=== PATIENT | female | born 1960 | race Caucasian/White ===

== ENCOUNTER → 2017-01-21 | Outpatient (CLI) | payer MEDICARE, OTHER ==
[~2017-01-21] MED LIST: AC325T PO; ALBU8.5H2 IH; AMOX500C2 PO; BENZ100C18 PO; BENZ200C25 PO; CARV3.122 PO; ENAL2.5T PO; FLUO20CA25 PO; HYDR-34 PO; LOSA100T7 PO; PNT40TEC PO; PRD10T PO; prednisone taper
--- OUTSIDE RECORDS SUMMARY | 2017-01-21 14:03 | XMS REPORT | Continuity of Care Document ---
Author Author [facility] Organization [facility] Address Unknown Phone Unavailable Care Team Providers Care What Job Titles Mean Name Role Phone PCP Unavailable Source Comments Some departments are not documenting in the electronic medical record. If you do not see the information that you expected, contact Release of Information in the Health Information Management department at [phone] for further assistance in locating additional records.[facility] Active Allergies and Adverse Reactions Not on File Current Medications Not on file Active Problems Not on file Social History Tobacco Use Types Packs/Day Years Used Date Never Assessed Plan of Care Health Maintenance Due Date Last Done Comments Physical (Comprehensive) 1968 Exam Pertussis Vaccine 1972 Tetanus Vaccine 1978 Cervical Cancer Screening 1982 Breast Cancer Screening 2001 Colorectal Cancer 2011 Screening Influenza Vaccine 07/19/2016 Results from Last 3 Months Not on file
--- NOTE | 2017-01-21 15:03 | Diagnostic Imaging Report ---
INDICATION: Bilateral leg pain and swelling for one week. COMPARISON: None. TECHNIQUE: The bilateral lower extremity deep venous system was interrogated from the common femoral vein through the popliteal vein. These images were assessed for grayscale appearance, color and spectral Doppler blood flow, compression, and augmentation. FINDINGS: There is no evidence of intraluminal filling defect. Normal compression and augmentation is noted throughout. Soft tissues are unremarkable. IMPRESSION: 1. No sonographic evidence of deep venous thrombosis in the bilateral lower extremities. Dictated by: Dictated on workstation # [id number]
== END ==
LOC: RAD 14:00
PROVIDERS: ATTEND Physician Assistant
DX: M79.604 Pain in right leg (principal); M79.605 Pain in left leg; I25.10 Atherosclerotic heart disease of native coronary artery without angina pectoris; I50.22 Chronic systolic (congestive) heart failure; I11.0 Hypertensive heart disease with heart failure; E78.2 Mixed hyperlipidemia
CPT/HCPCS: 93970

== ENCOUNTER → 2017-03-11 | Outpatient (CLI) | payer MEDICARE ==
[~2017-03-11] MED LIST changes: +RT-ALBUTEROL SULF 2.5 MG/3 ML PRE-MIX VIAL IH ONE
--- NOTE | 2017-03-11 14:50 | Diagnostic Imaging Report ---
PA and lateral views of the chest Indication: Chronic cough and shortness of breath Findings: The lungs are clear. The heart size is normal. There is no effusion or pneumothorax The mediastinum and chico appear unremarkable. Impression: Unremarkable study. Dictated by: Dictated on workstation # [id number]
== END ==
LOC: RT 13:08
PROVIDERS: ATTEND Internal Medicine Critical Care Medicine
DX: J44.9 Chronic obstructive pulmonary disease, unspecified (principal); R06.00 Dyspnea, unspecified; Z72.0 Tobacco use
CPT/HCPCS: 71020; 94060; 94640; 94726; 94729

== ENCOUNTER 2017-04-23 21:00 | Outpatient (CLI) | payer MEDICARE ==
[~2017-04-23 21:00] MED LIST changes: -RT-ALBUTEROL SULF 2.5 MG/3 ML PRE-MIX VIAL IH ONE
== END 2017-04-24 06:20 | disposition home or self-care (01) ==
LOC: SLEEP 21:00
PROVIDERS: ATTEND Internal Medicine Critical Care Medicine
DX: G47.9 Sleep disorder, unspecified (principal); J44.9 Chronic obstructive pulmonary disease, unspecified; R00.0 Tachycardia, unspecified; Z72.0 Tobacco use; F41.9 Anxiety disorder, unspecified
CPT/HCPCS: 95810

== ENCOUNTER → 2017-04-24 | Outpatient (CLI) | payer MEDICARE ==
[2017-04-24 07:26] LABS: ALANINE AMINOTRANSFERASE 27 U/L (0-55); ALBUMIN 3.7 G/DL (3.2-4.5); ANION GAP 10 MMOL/L (5-14); ASPARTATE AMINO TRANSFERASE 22 U/L (5-34); BILIRUBIN,DIRECT 0.2 MG/DL (0.0-0.3); BILIRUBIN,INDIRECT 0.1 MG/DL; BILIRUBIN,TOTAL 0.3 MG/DL (0.1-1.0); BLOOD UREA NITROGEN 20 MG/DL (7-18); BUN/CREATININE RATIO 29; CALCIUM 9.1 MG/DL (8.5-10.1); CARBON DIOXIDE 23 MMOL/L (21-32); CHLORIDE 110 MMOL/L (98-107); CREATININE SERUM 0.68 MG/DL (0.60-1.30); GFR ESTIMATED > 60; GLUCOSE 113 MG/DL (70-105); POTASSIUM 4.1 MMOL/L (3.6-5.0); SODIUM 143 MMOL/L (135-145); TOTAL PROTEIN 6.6 G/DL (6.4-8.2)
[2017-04-24 13:36] LABS: CHOLESTEROL 170 MG/DL (< 200); DIRECT LDL 98 MG/DL (1-129); TRIGLYCERIDES 79 MG/DL (<150); VLDL CHOLESTEROL 16 MG/DL (5-40)
== END ==
LOC: LAB 06:47
PROVIDERS: ATTEND Physician Assistant
DX: E78.2 Mixed hyperlipidemia (principal); I25.10 Atherosclerotic heart disease of native coronary artery without angina pectoris; I10 Essential (primary) hypertension
CPT/HCPCS: 36415; 80053; 80061; 80076; 82248

== ENCOUNTER → 2018-01-23 | Outpatient (CLI) | payer MEDICARE, OTHER | LOC: CARD 09:38 | PROVIDERS: ATTEND Internal Medicine Cardiovascular Disease | DX: I25.10 Atherosclerotic heart disease of native coronary artery without angina pectoris (principal); R07.9 Chest pain, unspecified; R06.00 Dyspnea, unspecified; I10 Essential (primary) hypertension; E78.2 Mixed hyperlipidemia | CPT/HCPCS: 93306 ==

== ENCOUNTER → 2018-01-28 | Outpatient (CLI) | payer MEDICARE ==
--- NOTE | 2018-01-28 18:49 | Diagnostic Imaging Report ---
EXAMINATION: PA and Lateral chest at 10:24 a.m. INDICATION: Shortness of breath. FINDINGS: The heart size is within normal limits and stable when compared to 03/11/2017. The lungs are clear. There is no sign of failure, pneumonia, or pleural effusion. The mediastinum is not widened. The osseous structures are intact. IMPRESSION: There is no evidence for active disease. Dictated by: Dictated on workstation # [id number]
== END ==
LOC: RAD 09:57
PROVIDERS: ATTEND Nurse Practitioner Family
DX: J44.9 Chronic obstructive pulmonary disease, unspecified (principal); F17.200 Nicotine dependence, unspecified, uncomplicated
CPT/HCPCS: 71046

== ENCOUNTER → 2018-05-06 | Outpatient (CLI) | payer MEDICARE ==
[~2018-05-06] MED LIST changes: +CATHETER FLUSH 10 ML SYR IV PRN; +IOHEXOL 350 MG/ML 100 ML (OMNIPAQUE 350) VIAL IV ONE; +NS 100 ML (IVPB) BAG IV ONE
[2018-05-06 11:19] LABS: BUN/CREATININE RATIO 12; CREATININE SERUM 0.73 MG/DL (0.60-1.30); GFR ESTIMATED > 60
--- NOTE | 2018-05-06 20:01 | Diagnostic Imaging Report ---
PROCEDURE: CT chest with contrast only. TECHNIQUE: Multiple contiguous axial images were obtained through the chest after administration of intravenous contrast. INDICATION: Weight loss, upper abdominal pain, and COPD. COMPARISON: CT chest dated 03/01/2014. FINDINGS: Few mildly prominent but non-pathologically enlarged axillary lymph nodes. No pathologically enlarged mediastinal and/or hilar lymphadenopathy. Visualized portions of the thyroid gland are unremarkable. Heart size is borderline. The thoracic aorta does demonstrate slight prominent appearance about the ascending aorta, maximum dimension at 3.5 cm. No filling defect to suggest dissection. No pericardial effusion. Mild calcification of the arch as well as take-off of the great vessels without findings to suggest significant stenosis. EG junction demonstrates some soft tissue prominence in and around the junction. There are moderately advanced predominantly centrilobular emphysematous changes predominantly involving the upper lobe distributions. No infiltrate. No significant pleural effusion. There may be slightly more focal fatty infiltration along the falciform ligament of the liver. Mildly advanced degenerative changes about the thoracic spine with slightly accentuated thoracic kyphotic curvature. IMPRESSION: 1. Negative for acute abnormality of the chest. 2. Moderately advanced emphysematous changes about the lung parenchyma. No infiltrate. Dictated by: Dictated on workstation # [id number]
== END ==
LOC: RAD 10:37
PROVIDERS: ATTEND Nurse Practitioner Family
DX: J44.9 Chronic obstructive pulmonary disease, unspecified (principal); R10.9 Unspecified abdominal pain; F17.200 Nicotine dependence, unspecified, uncomplicated
CPT/HCPCS: 36415; 71260; 82565; 84520

== ENCOUNTER → 2019-02-12 | Outpatient (CLI) | payer MEDICARE ==
[~2019-02-12] MED LIST changes: -CATHETER FLUSH 10 ML SYR IV PRN; -IOHEXOL 350 MG/ML 100 ML (OMNIPAQUE 350) VIAL IV ONE; -NS 100 ML (IVPB) BAG IV ONE
--- NOTE | 2019-02-12 17:08 | Diagnostic Imaging Report ---
INDICATION: Chest congestion. TIME OF EXAM: 03:27 p.m. Correlation is made with prior study from 01/28/2018. FINDINGS: The heart size is stable. Lungs show some hyperinflation. No infiltrates are seen. There is no effusion or pneumothorax. Pulmonary vascularity is within normal limits. IMPRESSION: No acute cardiopulmonary process is detected. Dictated by: Dictated on workstation # [id number]
== END ==
LOC: RAD 15:12
PROVIDERS: ATTEND Nurse Practitioner Family
DX: J44.1 Chronic obstructive pulmonary disease with (acute) exacerbation (principal); J30.2 Other seasonal allergic rhinitis; G47.34 Idiopathic sleep related nonobstructive alveolar hypoventilation; F17.200 Nicotine dependence, unspecified, uncomplicated
CPT/HCPCS: 71046

== ENCOUNTER → 2019-03-02 | Outpatient (CLI) | payer MEDICARE ==
[2019-03-02 10:18] LABS: ALANINE AMINOTRANSFERASE 18 U/L (0-55); ALBUMIN 3.9 GM/DL (3.2-4.5); ALKALINE PHOSPHATASE 61 U/L (40-136); BILIRUBIN,TOTAL 0.4 MG/DL (0.1-1.0); BUN/CREATININE RATIO 21; CALCIUM 9.3 MG/DL (8.5-10.1); CARBON DIOXIDE 27 MMOL/L (21-32); CHLORIDE 109 MMOL/L (98-107); CHOLESTEROL 183 MG/DL (< 200); CREATININE SERUM 0.77 MG/DL (0.60-1.30); GFR ESTIMATED > 60; GLUCOSE 93 MG/DL (70-105); HDL CHOLESTEROL 85 MG/DL (40-60); SODIUM 143 MMOL/L (135-145); TOTAL PROTEIN 6.4 GM/DL (6.4-8.2); TRIGLYCERIDES 56 MG/DL (<150); VLDL CHOLESTEROL 11 MG/DL (5-40)
== END ==
LOC: LAB 09:43
PROVIDERS: ATTEND Internal Medicine Cardiovascular Disease
DX: I25.10 Atherosclerotic heart disease of native coronary artery without angina pectoris (principal); I10 Essential (primary) hypertension; E78.5 Hyperlipidemia, unspecified
CPT/HCPCS: 36415; 80053; 80061

== ENCOUNTER 2019-03-08 20:16 | Emergency (ER) | payer MEDICARE ==
[~2019-03-08] VITALS: Ht 172.7 cm; Wt 85.7 kg
[2019-03-08] MEDS ORDERED: RT-ALBUTEROL/IPRATROPIUM 3 ML (DUONEB) VIAL ONE (20:29)
[2019-03-08 20:43] LABS: BASOPHILS % (AUTO) 0 % (0-10); EOSINOPHILS % (AUTO) 1 % (0-10); HEMATOCRIT 42 % (35-52); HEMOGLOBIN 13.6 G/DL (11.5-16.0); LYMPHOCYTES # (AUTO) 1.5 X 10^3 (1.0-4.0); LYMPHOCYTES % (AUTO) 27 % (12-44); MEAN CORPUSCULAR HEMOGLOBIN 30 PG (25-34); MEAN CORPUSCULAR HGB CONC 32 G/DL (32-36); MEAN CORPUSCULAR VOLUME 94 FL (80-99); MEAN PLATELET VOLUME 11.1 FL (7.4-10.4); MONOCYTES # (AUTO) 0.9 X 10^3 (0.0-1.0); MONOCYTES % (AUTO) 15 % (0-12); NEUTROPHILS # (AUTO) 3.2 X 10^3 (1.8-7.8); NEUTROPHILS % (AUTO) 57 % (42-75); PLATELET COUNT 203 10^3/uL (130-400); RED CELL DISTRIBUTION WIDTH 13.7 % (10.0-14.5); WHITE BLOOD COUNT 5.5 10^3/uL (4.3-11.0)
[2019-03-08 20:55] LABS: ABG BASE EXCESS 0.9 MMOL/L (-2.5-2.5); ABG OXYGEN SATURATION 94 % (94-100); ABG PCO2 40 MMHG (35-45); ABG PH 7.41 (7.37-7.43); ABG PO2 66 MMHG (79-93); ABG TCO2 26.2 MMOL/L (21.0-31.0)
[2019-03-08 20:57] LABS: ALLENS TEST YES-POS; INSPIRED O2 ROOM AIR; PATIENT TEMP 99.1; VENTILATOR NO
[2019-03-08 21:03] LABS: ALANINE AMINOTRANSFERASE 23 U/L (0-55); ALBUMIN 4.3 GM/DL (3.2-4.5); ALKALINE PHOSPHATASE 70 U/L (40-136); BILIRUBIN,TOTAL 0.4 MG/DL (0.1-1.0); BUN/CREATININE RATIO 20; CALCIUM 9.6 MG/DL (8.5-10.1); CARBON DIOXIDE 24 MMOL/L (21-32); CHLORIDE 104 MMOL/L (98-107); CREATININE SERUM 0.79 MG/DL (0.60-1.30); GFR ESTIMATED > 60; GLUCOSE 89 MG/DL (70-105); POTASSIUM 3.5 MMOL/L (3.6-5.0); SODIUM 140 MMOL/L (135-145); TOTAL PROTEIN 7.3 GM/DL (6.4-8.2)
[2019-03-08] MEDS ORDERED: RT-ALBUTEROL/IPRATROPIUM 3 ML (DUONEB) VIAL INH ONE (21:30)
[2019-03-08] MEDS ORDERED: methylPREDNISolone 125 MG (Solu-MEDROL) VIAL IVP ONE (21:30)
[2019-03-08] MEDS ORDERED: HYDROcodone/APAP 5 MG/325 MG (LORTAB) TAB PO ONE (21:30)
[2019-03-08] MEDS ORDERED: RT-ALBUTEROL SULF 2.5 MG/3 ML PRE-MIX VIAL INH SCH (21:30)
--- NOTE | 2019-03-08 22:08 | ED Cough/URI ---
General Chief Complaint: Respiratory Problems Stated Complaint: COUGH,SOA Nursing Triage Note: PT REPORTS HAVING A PRODUCTIVE COUGH WITH EXERTIONAL SOB SINCE SATURDAY, VERBALIZED A HX OF COPD, STATES SHE FEELS LIKE SHE IS WORKING HARDER TO BREATHE TODAY VS THE PAST 2-3 DAYS Sepsis Screen: No Definite Risk Source: patient Exam Limitations: no limitations History of Present Illness Date Seen by Provider: Mar 08, 2019 Time Seen by Provider: 20:30 Initial Comments To ER with a productive cough shortness of breath and wheezing for about 2-3 days. History of COPD and does follow with Dr. Jewell. No fevers or chills. She is on prednisone 10 mg daily, she is currently on antibiotic. Timing/Duration: just prior to arrival Severity/Quality: moderate Modifying Factors: Improves With Coughing Associated Symptoms: cough, shortness of breath, wheezing Allergies and Home Medications Allergies Coded Allergies: aspirin (Unverified Allergy, Severe, EDEMA, 04/07/12) Home Medications Albuterol 8.5 Gm Hfa.aer.ad, 2 PUFF IH Q4H, (Reported) 2 PUFFS Carvedilol 3.125 Mg Tablet, 3.125 MG PO BID, (Reported) Losartan Potassium 100 Mg Tablet, 100 MG PO DAILY, (Reported) Pantoprazole Sodium 40 Mg Tablet.dr, 40 MG PO DAILY, (Reported) Prednisone 20 Mg Tab, 20 MG PO DAILY Take 3 tabs(60mg)daily, decrease by 1/2 tab(10mg)daily. Prescribed by: MARIVEL SANDOVAL on 03/08/19 9917 Patient Home Medication List Home Medication List Reviewed: Yes Review of Systems Review of Systems Constitutional: see HPI EENTM: see HPI Respiratory: see HPI, cough, short of breath, wheezing Cardiovascular: no symptoms reported Genitourinary: no symptoms reported Musculoskeletal: no symptoms reported Skin: no symptoms reported Psychiatric/Neurological: No Symptoms Reported Past Ghpuueq-Ppgxwd-Umoleo Hx Patient Social History Alcohol Use: Denies Use Recreational Drug Use: No Smoking Status: Current Everyday Smoker Type Used: Cigarettes Recent Foreign Travel: No Contact w/Someone Who Travel: No Recent Infectious Disease Expo: No Immunizations Up To Date Tetanus Booster (TDap): Unknown PED Vaccines UTD: Yes Date of Pneumonia Vaccine: Feb 03, 2013 Past Medical History Surgeries: Yes Respiratory: Yes (COPD) COPD, Emphysema Cardiac: Yes Neurological: Yes (PT STATES HX OF MIGRAINES, NO LONGER A PROBLEM.) : No Reproductive Disorders: Yes (MISCARRAIGE, HYSTERECTOMY.) Sexually Transmitted Disease: No HIV/AIDS: No Gastrointestinal: Yes Abdominal Hernia Musculoskeletal: Yes (PT STATES ARTHRITIS TO R. SHOULDER, BILAT KNEES ET BACK.) Arthritis Endocrine: Yes (PT QUIT TAKING SYNTHROID IN 1995) Hypothyroidsim Loss of Vision: Bilateral Hearing Impairment: Hard of Hearing Cancer: No Psychosocial: Yes Anxiety Integumentary: No Blood Disorders: No Adverse Reaction/Blood Tranf: No Family Medical History Cardiovascular disease 19 FATHER 19 MOTHER G8 SISTER Completed stroke 19 MOTHER G8 SISTER Diabetes mellitus G8 SISTER G8 SISTER Drug abuse G8 SISTER Hypertension 19 FATHER 19 MOTHER Myocardial infarction 19 FATHER 19 MOTHER Respiratory disorder G8 SISTER No Family History of: Alzheimer's disease Physical Exam Vital Signs - First Documented 03/08/19 03/08/19 20:24 21:25 Temp 98.4 Pulse 80 Resp 22 B/P (MAP) 191/94 (126) Pulse Ox 95 O2 Delivery Room Air O2 Flow Rate 2.00 Capillary Refill : Less Than 3 Seconds Height: 5'8.00" Weight: 189lbs. 8.0oz. [id number]; BMI Method:Estimated General Appearance: WD/WN, no apparent distress Eyes: Bilateral Eye Normal Inspection, Bilateral Eye PERRL, Bilateral Eye EOMI HEENT: PERRL/EOMI, normal ENT inspection Respiratory: no respiratory distress, no accessory muscle use, wheezing Gastrointestinal: normal bowel sounds, non tender, soft Neurologic/Psychiatric: alert, normal mood/affect, oriented x 3 Skin: normal color, warm/dry Progress/Results/Core Measures Suspected Sepsis Recent Fever Within 48 Hours: No Infection Criteria Present: Suspected New Infection New/Unexplained Altered Menta: No Sepsis Screen: No Definite Risk SIRS Temperature:98.4 Pulse: 80 Respiratory Rate: 22 Laboratory Tests 03/08/19 20:33: White Blood Count 5.5 Blood Pressure 191 /94 Mean: 126 Laboratory Tests 03/08/19 20:33: Creatinine 0.79, Platelet Count 203, Total Bilirubin 0.4 Results/Orders Lab Results Laboratory Tests Test 03/08/19 20:33 03/08/19 20:46 Range/Units White Blood Count 5.5 4.3-11.0 10^3/uL Red Blood Count 4.47 4.35-5.85 10^6/uL Hemoglobin 13.6 11.5-16.0 G/DL Hematocrit 42 35-52 % Mean Corpuscular Volume 94 80-99 FL Mean Corpuscular Hemoglobin 30 25-34 PG Mean Corpuscular Hemoglobin Concent 32 32-36 G/DL Red Cell Distribution Width 13.7 10.0-14.5 % Platelet Count 203 130-400 10^3/uL Mean Platelet Volume 11.1 H 7.4-10.4 FL Neutrophils (%) (Auto) 57 42-75 % Lymphocytes (%) (Auto) 27 12-44 % Monocytes (%) (Auto) 15 H 0-12 % Eosinophils (%) (Auto) 1 0-10 % Basophils (%) (Auto) 0 0-10 % Neutrophils # (Auto) 3.2 1.8-7.8 X 10^3 Lymphocytes # (Auto) 1.5 1.0-4.0 X 10^3 Monocytes # (Auto) 0.9 0.0-1.0 X 10^3 Eosinophils # (Auto) 0.0 0.0-0.3 10^3/uL Basophils # (Auto) 0.0 0.0-0.1 10^3/uL Sodium Level 140 135-145 MMOL/L Potassium Level 3.5 L 3.6-5.0 MMOL/L Chloride Level 104 98-107 MMOL/L Carbon Dioxide Level 24 21-32 MMOL/L Anion Gap 12 5-14 MMOL/L Blood Urea Nitrogen 16 7-18 MG/DL Creatinine 0.79 0.60-1.30 MG/DL Estimat Glomerular Filtration Rate > 60 BUN/Creatinine Ratio 20 Glucose Level 89 70-105 MG/DL Calcium Level 9.6 8.5-10.1 MG/DL Corrected Calcium 9.4 8.5-10.1 MG/DL Total Bilirubin 0.4 0.1-1.0 MG/DL Aspartate Amino Transf (AST/SGOT) 25 5-34 U/L Alanine Aminotransferase (ALT/SGPT) 23 0-55 U/L Alkaline Phosphatase 70 40-136 U/L B-Type Natriuretic Peptide 36.1 <100.0 PG/ML Total Protein 7.3 6.4-8.2 GM/DL Albumin 4.3 3.2-4.5 GM/DL Blood Gas Puncture Site LEFT RADIAL Blood Gas Patient Temperature 99.1 Arterial Blood pH 7.41 7.37-7.43 Arterial Blood Partial Pressure CO2 40 35-45 MMHG Arterial Blood Partial Pressure O2 66 L 79-93 MMHG Arterial Blood HCO3 25 23-27 MMOL/L Arterial Blood Total CO2 26.2 21.0-31.0 MMOL/L Arterial Blood Oxygen Saturation 94 94-100 % Arterial Blood Base Excess 0.9 -2.5-2.5 MMOL/L Sebastien Test YES-POS Blood Gas Ventilator Setting NO Blood Gas Inspired Oxygen ROOM AIR My Orders Orders - MARIVEL SANDOVAL APRN Albuterol/Ipra Inhalation Soln (Duoneb I (03/08/19 20:29) Cbc With Automated Diff (03/08/19 20:29) Comprehensive Metabolic Panel (03/08/19 20:29) Ekg Tracing (03/08/19 20:29) BNP (03/08/19 20:29) Iv Heplock-Insert (Order) (03/08/19 20:29) Arterial Blood Gas (03/08/19 20:46) Arterial Blood Draw (03/08/19 ) Cbc With Automated Diff (03/08/19 21:16) Comprehensive Metabolic Panel (03/08/19 21:16) Ed Iv/Invasive Line Start (03/08/19 21:16) Chest 1 View, Ap/Pa Only (03/08/19 21:16) Methylprednisolone Sod Succ (Solu-Medrol (03/08/19 21:30) Albuterol/Ipra Inhalation Soln (Duoneb I (03/08/19 21:30) Albuterol Pre-Mix Nebs (Rt) (Proventil (03/08/19 21:30) Svn Small Volume Nebulizer (03/08/19 21:16) Svn Small Volume Nebulizer (03/08/19 21:16) Hydrocodone/Apap 5/325 Tablet (Lortab 5 (03/08/19 21:30) Medications Given in ED Current Medications Medications Dose Ordered Sig/Tirso Route Start Time Stop Time Status Last Admin Dose Admin Acetaminophen/ Hydrocodone Bitart 1 tab ONCE ONCE PO 03/08/19 21:30 03/08/19 21:31 DC 03/08/19 21:33 1 TAB Albuterol/ Ipratropium 3 ml ONCE ONCE INH 03/08/19 21:30 03/08/19 21:31 DC 03/08/19 21:25 3 ML Albuterol/ Ipratropium 3 ml STK-MED ONCE .ROUTE 03/08/19 20:29 03/08/19 20:33 DC 03/08/19 20:34 3 ML Methylprednisolone Sodium Succinate 125 mg ONCE ONCE IVP 03/08/19 21:30 03/08/19 21:31 DC 03/08/19 21:36 125 MG Vital Signs/I&O 03/08/19 03/08/19 03/08/19 20:24 20:34 21:25 Temp 98.4 Pulse 80 Resp 22 B/P (MAP) 191/94 (126) Pulse Ox 95 93 95 O2 Delivery Room Air Room Air Nasal Cannula O2 Flow Rate 2.00 Capillary Refill : Less Than 3 Seconds Blood Pressure Mean: 126 Departure Communication (Admissions) 2216- much better from a wheezing standpoint, states that she feels like she is getting more air. She still has about half of her hour-long treatment ago. There is still some residual wheezing on the left but the right is now clear though diminished. She would prefer to go home. Her labs are unremarkable however she is hypoxic after an hour-long breathing treatment between 87 and 90 % still coughing quite a lot with diminished lung sounds 2313-remains hypoxic at about 87-89% on room air, coughing quite a bit. She would benefit from inpatient or nebulized breathing treatments as she does not have this at home and a bit hesitant to discharge to drive 30 minutes home without supplemental oxygen at this time. I spoke with Dr. Gordon, she accepts the patient in [facility]. Impression Primary Impression: COPD exacerbation Disposition: HOME, SELF-CARE Condition: Stable Departure-Patient Inst. Decision time for Depature: 22:07 Referrals: SUZY GORDON DO (PCP/Family) Primary Care Physician Patient Instructions: Exacerbation of COPD (DC) Add. Discharge Instructions: 1. Steroids as directed 2. Follow-up with your doctor next week 3. All discharge instructions reviewed with patient and/or family. Voiced understanding. Scripts Prednisone (Prednisone) 20 Mg Tab 20 MG PO DAILY, #11 TAB Take 3 tabs(60mg)daily, decrease by 1/2 tab(10mg)daily. Prov: MARIVEL SANDOVAL CABLE WAY OPERATOR 03/08/19 MARIVEL SANDOVAL APRN Mar 08, 2019 22:07
--- OUTSIDE RECORDS SUMMARY | 2019-03-08 22:18 | XMS REPORT ---
Author Author MADDIABHINAV SANTANA [facility] Address Unknown Care Team Providers Care Sales Operations Lead Name Role Phone ABHINAV CHUNG Unavailable PROBLEMS Unknown Problems ALLERGIES Substance Reaction Event Type Date Status Aspirin Unknown Drug Allergy Jan, Active ENCOUNTERS Encounter Location Date Diagnosis [facility] [address] [facility] [id number] [id number] Jun, [facility] [id number] [id number] March, Dental caries K02.9 [facility] [id number] [id number] Jan, Dental examination Z01.20 IMMUNIZATIONS No Known Immunizations SOCIAL HISTORY Never Assessed REASON FOR VISIT WALK IN [facility] PLAN OF CARE Activity Details Follow Up DELMA Reason:Extraction of 2 & 3 VITAL SIGNS Blood pressure systolic 110 mmHg 2018-01-28 Blood pressure diastolic 78 mmHg 2018-01-28 MEDICATIONS Medication Instructions Dosage Frequency Start Date End Date Duration Status Losartan Potassium Active Breo Ellipta 100-25 MCG/INH Inhalation Once a day 1 puff 24h Active Amoxicillin 500 MG Orally every 8 hrs 1 tablet 8h 7 days Active Ventolin HFA 108 (90 Base) MCG/ACT Inhalation every 6 hrs 2 puffs as needed 6h Active Pantoprazole Sodium 40 MG Orally Once a day 1 tablet 24h Active Metaproterenol Sulfate Active RESULTS No Results PROCEDURES Procedure Date Ordered Result Body Site LTD ORAL EVALUATION - PROBLEM FOCUS January 28, 2018 INTRAORL-PERIAPICAL 1 FILM [id number] January 28, 2018 BITEWING - SINGLE FILM January 28, 2018 INSTRUCTIONS MEDICATIONS ADMINISTERED No Known Medications MEDICAL (GENERAL) HISTORY Type Description Date Medical History HBP Medical History CHF Medical History COPD Medical History Bronchitis Medical History 9 Back surgeries Medical History Arthritis Medical History Back trouble Medical History MRSA Surgical History Right Shoulder Surgery Surgical History Left and Right Knee Surgical History Back 3 times opened 9 times due to MRSA infection Hospitalization History See Surgeries
--- OUTSIDE RECORDS SUMMARY | 2019-03-08 22:18 | XMS REPORT ---
Author Author MADDIMAXABHINAV Organization [facility] Address Unknown Care Team Providers Care Metaphysics Teacher Name Role Phone ABHINAV CHUNG Unavailable PROBLEMS Unknown Problems ALLERGIES Substance Reaction Event Type Date Status Aspirin Unknown Drug Allergy March, Active ENCOUNTERS Encounter Location Date Diagnosis [facility] [address] [facility] [id number] [id number] March, Dental caries K02.9 [facility] [id number] [id number] Jan, Dental examination Z01.20 IMMUNIZATIONS No Known Immunizations SOCIAL HISTORY Never Assessed REASON FOR VISIT TE PLAN OF CARE Activity Details Follow Up prn Reason:hygiene VITAL SIGNS Blood pressure systolic 131 mmHg 2018-04-01 Blood pressure diastolic 89 mmHg 2018-04-01 MEDICATIONS Medication Instructions Dosage Frequency Start Date End Date Duration Status Breo Ellipta 100-25 MCG/INH Inhalation Once a day 1 puff 24h Active Metaproterenol Sulfate Active Losartan Potassium Active Ventolin HFA 108 (90 Base) MCG/ACT Inhalation every 6 hrs 2 puffs as needed 6h Active Pantoprazole Sodium 40 MG Orally Once a day 1 tablet 24h Active RESULTS No Results PROCEDURES Procedure Date Ordered Result Body Site EXTRAC ERUPTED TOOTH/EXPOSED ROOT April 01, 2018 INSTRUCTIONS MEDICATIONS ADMINISTERED No Known Medications [...]
[2019-03-08] MEDS ORDERED: PRD20T PO (22:19)
--- OUTSIDE RECORDS SUMMARY | 2019-03-08 22:19 | XMS REPORT | Continuity of Care Document ---
Author Organization Unknown Address Unknown Allergies Active Description Code Type Severity Reaction Onset Reported/Identified Relationship to Patient Clinical Status Yes aspirin [id number] Drug Allergy Severe EDEMA 04/07/2012 Medications There is no data. Problems Date Dx Coded Attending Type Code Diagnosis Diagnosed By 03/22/2010 Ot 530.19 OTHER ESOPHAGITIS 03/22/2010 Ot 530.20 ULCER OF ESOPHAGUS W/O BLEEDING 03/22/2010 Ot 530.81 ESOPHAGEAL REFLUX 06/21/2010 Ot 530.19 OTHER ESOPHAGITIS 06/21/2010 Ot 530.81 ESOPHAGEAL REFLUX 06/21/2010 Ot 535.40 OTH SPECIFIED GASTRITIS,W/O MENTION OF H 06/21/2010 Ot V45.89 POSTSURGICAL STATES NEC 04/09/2012 Ot 397.0 TRICUSPID VALVE DISEASE 04/09/2012 Ot 401.9 HYPERTENSION NOS 04/09/2012 Ot 424.0 MITRAL VALVE DISORDER 04/09/2012 Ot 425.4 PRIM CARDIOMYOPATHY NEC 04/09/2012 Ot 553.3 DIAPHRAGMATIC HERNIA 04/09/2012 Ot 719.40 JOINT PAIN- UNSPEC 04/09/2012 Ot 786.09 RESPIRATORY ABNORM NEC 04/09/2012 Ot 786.50 CHEST PAIN NOS 04/09/2012 Ot V17.49 FAMILY HISTORY OF OTHER CARDIOVASCULAR D 02/03/2013 Ot 305.1 TOBACCO USE DISORDER 02/03/2013 Ot 414.01 CORONARY ATHEROSCLEROSIS OF [place] CORON 02/03/2013 Ot 425.4 PRIM CARDIOMYOPATHY NEC 02/03/2013 Ot 786.50 CHEST PAIN NOS 02/03/2013 Ot V58.69 OTH MED,LT, CURRENT USE 09/24/2013 ROXANA CARMEN, CHICA Díaz Ot 530.11 REFLUX ESOPHAGITIS 09/24/2013 ROXANA CARMEN, CHICA Díaz Ot 535.40 OTH SPECIFIED GASTRITIS,W/O MENTION OF H 09/24/2013 CHICA SCHMIDT MD Ot 787.91 DIARRHEA 09/24/2013 CHICA SCHMIDT MD Ot V45.89 POSTSURGICAL STATES NEC 07/01/2014 PAYTON HAMPTON MD Ot 389.9 HEARING LOSS NOS 07/01/2014 PAYTON HAMPTON MD Ot 401.9 HYPERTENSION NOS 07/01/2014 PAYTON HAMPTON MD Ot 414.01 CORONARY ATHEROSCLEROSIS OF [place] CORON 07/01/2014 PAYTON HAPMTON MD Ot 492.8 EMPHYSEMA NEC 07/01/2014 PAYTON HAMPTON MD Ot 786.59 CHEST PAIN NEC 07/01/2014 PAYTON HAMPTON MD Ot V17.49 FAMILY HISTORY OF OTHER CARDIOVASCULAR D 07/01/2014 PAYTON HAMPTON MD Ot V58.69 OT MED,LT,CURRENT USE 01/10/2015 PAYTON HAMPTON MD Ot 272.4 01/10/2015 PAYTON HAMPTON MD Ot 305.1 01/10/2015 PAYTON HAMPTON MD Ot 401.9 01/10/2015 PAYTON HAMPTON MD Ot 414.00 01/10/2015 PAYTON HAMPTON MD Ot 786.50 04/27/2015 PAYTON HAMPTON MD Ot 272.4 04/27/2015 PAYTON HAMPTON MD Ot 305.1 04/27/2015 PAYTON HAMPTON MD Ot 401.9 04/27/2015 PAYTON HAMPTON MD Ot 414.00 04/27/2015 PAYTON HAMPTON MD Ot 786.50 02/07/2016 PAYTON HAMPTON MD Ot E07.9 02/07/2016 PAYTON HAMPTON MD Ot E78.5 02/07/2016 PAYTON HAMPTON MD Ot I10 02/07/2016 PAYTON HAMPTON MD Ot I25.10 02/07/2016 PAYTON HAMPTON MD Ot I50.22 02/07/2016 FIFI WEINBERG Ot E78.5 02/07/2016 FIFI WEINBERG Ot I10 02/07/2016 FIFI WEINBERG Ot I25.10 02/07/2016 FIFI WEINBERG Ot I50.9 02/21/2016 Ot E78.5 02/21/2016 Ot I10 02/21/2016 Ot I25.10 02/21/2016 Ot I50.22 02/21/2016 Ot R07.9 02/22/2016 MEMO CARMEN, PAYTON Soriano Ot E07.9 02/22/2016 MEMO CARMEN, PAYTON Soriano Ot E78.5 02/22/2016 MEMO CARMEN, PAYTON Soriano Ot I10 02/22/2016 MEMO CARMEN, PAYTON Soriano Ot I25.10 02/22/2016 MEMO CARMEN, PAYTON Soriano Ot I50.22 02/22/2016 JOHN PA, FIFI [place] Ot E78.5 02/22/2016 JOHN PA, FIFI [place] Ot I10 02/22/2016 JOHN PA, FIFI [place] Ot I25.10 02/22/2016 JOHN PA, FIFI [place] Ot I50.9 02/24/2016 Ot E78.5 02/24/2016 Ot I10 02/24/2016 Ot I25.10 02/24/2016 Ot I50.22 02/24/2016 Ot R07.9 03/05/2016 Ot E78.5 HYPERLIPIDEMIA, UNSPECIFIED 03/05/2016 Ot I10 ESSENTIAL ( PRIMARY) HYPERTENSION 03/05/2016 Ot I25.10 ATHSCL HEART DISEASE OF [place] CORONARY 03/05/2016 Ot I50.22 CHRONIC SYSTOLIC (CONGESTIVE) HEART FAIL 03/05/2016 Ot R07.9 CHEST PAIN, UNSPECIFIED 03/23/2016 Ot 397.0 TRICUSPID VALVE DISEASE 03/23/2016 Ot 424.0 MITRAL VALVE DISORDER 03/23/2016 Ot 428.0 CONGESTIVE HEART FAILURE NOS 03/23/2016 Ot 745.5 SECUNDUM ATRIAL SEPT DEF 03/23/2016 Ot 790.29 OTHER ABNORMAL GLUCOSE 03/23/2016 Ot 272.4 HYPERLIPIDEMIA NEC/NOS 03/23/2016 Ot 401.9 HYPERTENSION NOS 03/23/2016 Ot 786.50 CHEST PAIN NOS 03/23/2016 ROXANA CARMEN, CHICA Díaz Ot V72.84 EXAM PRE-OPERATIVE NOS 03/23/2016 PAYTON HAMPTON MD Ot 272.4 HYPERLIPIDEMIA NEC/NOS 03/23/2016 PAYTON HAMPTON MD Ot 305.1 TOBACCO USE DISORDER 03/23/2016 PAYTON HAMPTON MD Ot 401.9 HYPERTENSION NOS 03/23/2016 PAYTON HAMPTON MD Ot 414.00 CORON ATHEROSCLER NOS TYPE VESSEL, NATIV 03/23/2016 PAYTON HAMPTON MD Ot 492.8 EMPHYSEMA NEC 03/23/2016 PAYTON HAMPTON MD Ot 786.50 CHEST PAIN NOS 03/23/2016 PAYTON HAMPTON MD Ot 397.0 TRICUSPID VALVE DISEASE 03/23/2016 PAYTON HAMPTON MD Ot 401.9 HYPERTENSION NOS 03/23/2016 PAYTON HAMPTON MD Ot 414.00 CORON ATHEROSCLER NOS TYPE VESSEL, NATIV 03/23/2016 PAYTON HAMPTON MD Ot 424.0 MITRAL VALVE DISORDER 03/23/2016 PAYTON HAMPTON MD Ot 786.50 CHEST PAIN NOS 03/23/2016 PAYTON HAMPTON MD Ot 272.4 HYPERLIPIDEMIA NEC/NOS 03/23/2016 PAYTON HAMPTON MD Ot 305.1 TOBACCO USE DISORDER 03/23/2016 PAYTON HAMPTON MD Ot 401.9 HYPERTENSION NOS 03/23/2016 PAYTON HAMPTON MD Ot 414.00 CORON ATHEROSCLER NOS TYPE VESSEL, NATIV 03/23/2016 PAYTON HAMPTON MD Ot 786.50 CHEST PAIN NOS 03/23/2016 PAYTON HAMPTON MD Ot E07.9 DISORDER OF THYROID, UNSPECIFIED 03/23/2016 PAYTON HAMPTON MD Ot E78.5 HYPERLIPIDEMIA, UNSPECIFIED 03/23/2016 PAYTON HAMPTON MD Ot I10 ESSENTIAL (PRIMARY) HYPERTENSION 03/23/2016 PAYTON HAMPTON MD Ot I25.10 ATHSCL HEART DISEASE OF [place] CORONARY 03/23/2016 PAYTON HAMPTON MD Ot I50.22 CHRONIC SYSTOLIC (CONGESTIVE) HEART FAIL 03/23/2016 Ot E78.5 HYPERLIPIDEMIA, UNSPECIFIED 03/23/2016 Ot I10 ESSENTIAL ( PRIMARY) HYPERTENSION 03/23/2016 Ot I25.10 ATHSCL HEART DISEASE OF [place] CORONARY 03/23/2016 Ot I50.22 CHRONIC SYSTOLIC (CONGESTIVE) HEART FAIL 03/23/2016 Ot R07.9 CHEST PAIN, UNSPECIFIED 03/23/2016 FIFI WEINBERG Ot E78.5 HYPERLIPIDEMIA, UNSPECIFIED 03/23/2016 FIFI WEINBERG Ot I10 ESSENTIAL (PRIMARY) HYPERTENSION 03/23/2016 FIFI WEINBERG Ot I25.10 ATHSCL HEART DISEASE OF [place] CORONARY 03/23/2016 FIFI WEINBERG Ot I50.9 HEART FAILURE, UNSPECIFIED 03/23/2016 Ot E78.5 HYPERLIPIDEMIA, UNSPECIFIED 03/23/2016 Ot I10 ESSENTIAL ( PRIMARY) HYPERTENSION 03/23/2016 Ot I25.10 ATHSCL HEART DISEASE OF [place] CORONARY 03/23/2016 Ot I50.22 CHRONIC SYSTOLIC (CONGESTIVE) HEART FAIL 03/23/2016 Ot R07.9 CHEST PAIN, UNSPECIFIED 03/23/2016 PAYTON HAMPTON MD Ot E07.9 DISORDER OF THYROID, UNSPECIFIED 03/23/2016 PAYTON HAMPTON MD Ot E78.5 HYPERLIPIDEMIA, UNSPECIFIED 03/23/2016 PAYTON HAMPTON MD Ot I10 ESSENTIAL (PRIMARY) HYPERTENSION 03/23/2016 PAYTON HAMPTON MD Ot I25.10 ATHSCL HEART DISEASE OF [place] CORONARY 03/23/2016 PAYTON HAMPTON MD Ot I50.22 CHRONIC SYSTOLIC (CONGESTIVE) HEART FAIL 05/02/2016 Ot E78.5 HYPERLIPIDEMIA, UNSPECIFIED 05/02/2016 Ot I10 ESSENTIAL ( PRIMARY) HYPERTENSION 05/02/2016 Ot I25.10 ATHSCL HEART DISEASE OF [place] CORONARY 05/02/2016 Ot I50.22 CHRONIC SYSTOLIC (CONGESTIVE) HEART FAIL 05/02/2016 Ot R07.9 CHEST PAIN, UNSPECIFIED 01/21/2017 Ot 397.0 TRICUSPID VALVE DISEASE 01/21/2017 Ot 424.0 MITRAL VALVE DISORDER 01/21/2017 Ot 428.0 CONGESTIVE HEART FAILURE NOS 01/21/2017 Ot 745.5 SECUNDUM ATRIAL SEPT DEF 01/21/2017 Ot 790.29 OTHER ABNORMAL GLUCOSE 01/21/2017 Ot 272.4 HYPERLIPIDEMIA NEC/NOS 01/21/2017 Ot 401.9 HYPERTENSION NOS 01/21/2017 Ot 786.50 CHEST PAIN NOS 01/21/2017 ROXANA CARMEN, CHICA Díaz Ot V72.84 EXAM PRE-OPERATIVE NOS 01/21/2017 PAYTON HAMPTON MD Ot 272.4 HYPERLIPIDEMIA NEC/NOS 01/21/2017 PAYTON HAMPTON MD Ot 305.1 TOBACCO USE DISORDER 01/21/2017 PAYTON HAMPTON MD Ot 401.9 HYPERTENSION NOS 01/21/2017 PAYTON HAMPTON MD Ot 414.00 CORON ATHEROSCLER NOS TYPE VESSEL, NATIV 01/21/2017 PAYTON HAMPTON MD Ot 492.8 EMPHYSEMA NEC 01/21/2017 PAYTON HAMPTON MD Ot 786.50 CHEST PAIN NOS 01/21/2017 PAYTON HAMPTON MD Ot 397.0 TRICUSPID VALVE DISEASE 01/21/2017 PAYTON HAMPTON MD Ot 401.9 HYPERTENSION NOS 01/21/2017 PAYTON HAMPTON MD Ot 414.00 CORON ATHEROSCLER NOS TYPE VESSEL, NATIV 01/21/2017 PAYTON HAMPTON MD Ot 424.0 MITRAL VALVE DISORDER 01/21/2017 PAYTON HAPMTON MD Ot 786.50 CHEST PAIN NOS 01/21/2017 PAYTON HAMPTON MD Ot 272.4 HYPERLIPIDEMIA NEC/NOS 01/21/2017 PAYTON HAMPTON MD Ot 305.1 TOBACCO USE DISORDER 01/21/2017 PAYTON HAMPTON MD Ot 401.9 HYPERTENSION NOS 01/21/2017 PAYTON HAMPTON MD Ot 414.00 CORON ATHEROSCLER NOS TYPE VESSEL, NATIV 01/21/2017 PAYTON HAMPTON MD Ot 786.50 CHEST PAIN NOS 01/21/2017 PAYTON HAMPTON MD Ot E07.9 DISORDER OF THYROID, UNSPECIFIED 01/21/2017 PAYTON HAMPTON MD Ot E78.5 HYPERLIPIDEMIA, UNSPECIFIED 01/21/2017 PAYTON HAMPTON MD Ot I10 ESSENTIAL (PRIMARY) HYPERTENSION 01/21/2017 PAYTON HAMPTON MD Ot I25.10 ATHSCL HEART DISEASE OF [place] CORONARY 01/21/2017 PAYTON HAMPTON MD Ot I50.22 CHRONIC SYSTOLIC (CONGESTIVE) HEART FAIL 01/21/2017 Ot E78.5 HYPERLIPIDEMIA, UNSPECIFIED 01/21/2017 Ot I10 ESSENTIAL ( PRIMARY) HYPERTENSION 01/21/2017 Ot I25.10 ATHSCL HEART DISEASE OF [place] CORONARY 01/21/2017 Ot I50.22 CHRONIC SYSTOLIC (CONGESTIVE) HEART FAIL 01/21/2017 Ot R07.9 CHEST PAIN, UNSPECIFIED 01/21/2017 FIFI WEINBERG Ot E78.5 HYPERLIPIDEMIA, UNSPECIFIED 01/21/2017 FIFI WEINBERG Ot I10 ESSENTIAL (PRIMARY) HYPERTENSION 01/21/2017 FIFI WEINBERG Ot I25.10 ATHSCL HEART DISEASE OF [place] CORONARY 01/21/2017 FIFI WEINBERG Ot I50.9 HEART FAILURE, UNSPECIFIED 01/21/2017 FIFI WEINBERG Ot M79.606 PAIN IN LEG, UNSPECIFIED 01/21/2017 JOHN PAYAN, FIFI [place] Ot M79.606 PAIN IN LEG, UNSPECIFIED 01/23/2017 FIFI WEINBERG Ot E78.2 MIXED HYPERLIPIDEMIA 01/23/2017 FIFI WEINBERG Ot I11.0 HYPERTENSIVE HEART DISEASE WITH HEART FA 01/23/2017 FIFI WEINBERG Ot I25.10 ATHSCL HEART DISEASE OF [place] CORONARY 01/23/2017 FIFI WEINBERG Ot I50.22 CHRONIC SYSTOLIC (CONGESTIVE) HEART FAIL 01/23/2017 FIFI WEINBERG Ot M79.606 PAIN IN LEG, UNSPECIFIED 01/23/2017 FIFI WEINBERG Ot E78.2 MIXED HYPERLIPIDEMIA 01/23/2017 FIFI WEINBERG Ot I11.0 HYPERTENSIVE HEART DISEASE WITH HEART FA 01/23/2017 FIFI WEINBERG Ot I25.10 ATHSCL HEART DISEASE OF [place] CORONARY 01/23/2017 FIFI WEINBERG Ot I50.22 CHRONIC SYSTOLIC (CONGESTIVE) HEART FAIL 01/23/2017 FIFI WEINBERG Ot M79.606 PAIN IN LEG, UNSPECIFIED 03/15/2017 FIFI WEINBERG Ot E78.2 MIXED HYPERLIPIDEMIA 03/15/2017 FIFI WEINBERG Ot I11.0 HYPERTENSIVE HEART DISEASE WITH HEART FA 03/15/2017 FIFI WEINBERG Ot I25.10 ATHSCL HEART DISEASE OF [place] CORONARY 03/15/2017 FIFI WEINBERG Ot I50.22 CHRONIC SYSTOLIC (CONGESTIVE) HEART FAIL 03/15/2017 FIFI WEINBERG Ot M79.604 PAIN IN RIGHT LEG 03/15/2017 FIFI WEINBERG Ot M79.605 PAIN IN LEFT LEG 03/20/2017 FIFI WEINBERG Ot E78.2 MIXED HYPERLIPIDEMIA 03/20/2017 FIFI WEINBERG Ot I11.0 HYPERTENSIVE HEART DISEASE WITH HEART FA 03/20/2017 FIFI WEINBERG Ot I25.10 ATHSCL HEART DISEASE OF [place] CORONARY 03/20/2017 FIFI WEINBERG Ot I50.22 CHRONIC SYSTOLIC (CONGESTIVE) HEART FAIL 03/20/2017 FIFI WEINBERG Ot M79.604 PAIN IN RIGHT LEG 03/20/2017 FIFI WEINBERG Ot M79.605 PAIN IN LEFT LEG 03/29/2017 KOBI AKERS DO Ot G47.9 SLEEP DISORDER, UNSPECIFIED 03/29/2017 KOBI AKERS DO Ot G47.9 SLEEP DISORDER, UNSPECIFIED 03/29/2017 KOBI AKERS DO Ot G47.9 SLEEP DISORDER, UNSPECIFIED 04/24/2017 KOBI AKERS DO Ot F41.9 ANXIETY DISORDER, UNSPECIFIED 04/24/2017 KOBI AKERS DO Ot G47.9 SLEEP DISORDER, UNSPECIFIED 04/24/2017 KOBI AKERS DO Ot J44.9 CHRONIC OBSTRUCTIVE PULMONARY DISEASE, U 04/24/2017 KOBI AKERS DO Ot R00.0 TACHYCARDIA, UNSPECIFIED 04/24/2017 KOBI AKERS DO Ot Z72.0 TOBACCO USE 05/06/2017 FIFI WEINBERG Ot E78.2 MIXED HYPERLIPIDEMIA 05/06/2017 FIFI WEINBERG Ot I10 ESSENTIAL (PRIMARY) HYPERTENSION 05/06/2017 FIFI WEINBERG Ot I25.10 ATHSCL HEART DISEASE OF [place] CORONARY 07/02/2017 KOBI AKERS DO Ot J44.9 CHRONIC OBSTRUCTIVE PULMONARY DISEASE, U 07/02/2017 KOBI AKERS DO Ot R06.00 DYSPNEA, UNSPECIFIED 07/02/2017 KOBI AKERS DO Ot Z72.0 TOBACCO USE 01/03/2018 Ot 397.0 TRICUSPID VALVE DISEASE 01/03/2018 Ot 424.0 MITRAL VALVE DISORDER 01/03/2018 Ot 428.0 CONGESTIVE HEART FAILURE NOS 01/03/2018 Ot 745.5 SECUNDUM ATRIAL SEPT DEF 01/03/2018 Ot 272.4 HYPERLIPIDEMIA NEC/NOS 01/03/2018 Ot 401.9 HYPERTENSION NOS 01/03/2018 Ot 786.50 CHEST PAIN NOS 01/03/2018 ROXANA CARMEN, CHICA Díaz Ot V72.84 EXAM PRE-OPERATIVE NOS 01/03/2018 PAYTON HAMPTON MD Ot 272.4 HYPERLIPIDEMIA NEC/NOS 01/03/2018 PAYTON HAMPTON MD Ot 305.1 TOBACCO USE DISORDER 01/03/2018 PAYTON HAMPTON MD Ot 401.9 HYPERTENSION NOS 01/03/2018 PAYTON HAMPTON MD Ot 414.00 CORON ATHEROSCLER NOS TYPE VESSEL, NATIV 01/03/2018 PATYON HAMPTON MD Ot 492.8 EMPHYSEMA NEC 01/03/2018 PAYTON HAMPTON MD Ot 786.50 CHEST PAIN NOS 01/03/2018 PAYTON HAMPTON MD Ot 397.0 TRICUSPID VALVE DISEASE 01/03/2018 PAYTON HAMPTON MD Ot 401.9 HYPERTENSION NOS 01/03/2018 PAYTON HAMPTON MD Ot 414.00 CORON ATHEROSCLER NOS TYPE VESSEL, NATIV 01/03/2018 PAYTON HAMPTON MD Ot 424.0 MITRAL VALVE DISORDER 01/03/2018 PAYTON HAMPTON MD Ot 786.50 CHEST PAIN NOS 01/03/2018 PAYTON HAMPTON MD Ot 272.4 HYPERLIPIDEMIA NEC/NOS 01/03/2018 PAYTON HAMPTON MD Ot 305.1 TOBACCO USE DISORDER 01/03/2018 PAYTON HAMPTON MD Ot 401.9 HYPERTENSION NOS 01/03/2018 PAYTON HAMPTON MD Ot 414.00 CORON ATHEROSCLER NOS TYPE VESSEL, NATIV 01/03/2018 PAYTON HAMPTON MD Ot 786.50 CHEST PAIN NOS 01/03/2018 PAYTON HAMPTON MD Ot E78.5 HYPERLIPIDEMIA, UNSPECIFIED 01/03/2018 PAYTON HAMPTON MD Ot I10 ESSENTIAL (PRIMARY) HYPERTENSION 01/03/2018 PAYTON HAMPTON MD Ot I25.10 ATHSCL HEART DISEASE OF [place] CORONARY 01/03/2018 PAYTON HAMPTON MD Ot I50.22 CHRONIC SYSTOLIC (CONGESTIVE) HEART FAIL 01/03/2018 PAYTON HMAPTON MD Ot R07.9 CHEST PAIN, UNSPECIFIED 01/03/2018 Ot E78.5 HYPERLIPIDEMIA, UNSPECIFIED 01/03/2018 Ot I10 ESSENTIAL ( PRIMARY) HYPERTENSION 01/03/2018 Ot I25.10 ATHSCL HEART DISEASE OF [place] CORONARY 01/03/2018 Ot I50.22 CHRONIC SYSTOLIC (CONGESTIVE) HEART FAIL 01/03/2018 Ot R07.9 CHEST PAIN, UNSPECIFIED 01/03/2018 FIFI WEINBERG Ot E78.5 HYPERLIPIDEMIA, UNSPECIFIED 01/03/2018 FIFI WEINBERG Ot I10 ESSENTIAL (PRIMARY) HYPERTENSION 01/03/2018 FIFI WEINBERG Ot I25.10 ATHSCL HEART DISEASE OF [place] CORONARY 01/03/2018 FIFI WEINBERG Ot I50.9 HEART FAILURE, UNSPECIFIED 01/03/2018 FIFI WEINBERG Ot E78.2 MIXED HYPERLIPIDEMIA 01/03/2018 FIFI WEINBERG Ot I11.0 HYPERTENSIVE HEART DISEASE WITH HEART FA 01/03/2018 FIFI WEINBERG Ot I25.10 ATHSCL HEART DISEASE OF [place] CORONARY 01/03/2018 FIFI WEINBERG Ot I50.22 CHRONIC SYSTOLIC (CONGESTIVE) HEART FAIL 01/03/2018 FIFI WEINBERG Ot M79.604 PAIN IN RIGHT LEG 01/03/2018 FIFI WEINBERG Ot M79.605 PAIN IN LEFT LEG 01/03/2018 KOBI AKERS DO Ot J44.9 CHRONIC OBSTRUCTIVE PULMONARY DISEASE, U 01/03/2018 KOBI AKERS DO Ot R06.00 DYSPNEA, UNSPECIFIED 01/03/2018 KOBI AKERS DO Ot Z72.0 TOBACCO USE 01/03/2018 FIFI WEINBERG Ot E78.2 MIXED HYPERLIPIDEMIA 01/03/2018 FIFI WEINBERG Ot I10 ESSENTIAL (PRIMARY) HYPERTENSION 01/03/2018 FIFI WEINBERG Ot I25.10 ATHSCL HEART DISEASE OF [place] CORONARY 01/29/2018 JOEL YAO APRN Ot F17.200 NICOTINE DEPENDENCE, UNSPECIFIED, UNCOMP 01/29/2018 JOEL YAO APRN Ot J42 UNSPECIFIED CHRONIC BRONCHITIS 01/29/2018 JOEL YAO KENO DEALER Ot J44.9 CHRONIC OBSTRUCTIVE PULMONARY DISEASE, U 01/29/2018 JOEL YAO KENO DEALER Ot R06.00 DYSPNEA, UNSPECIFIED 01/29/2018 TEO YAOINE E KENO DEALER Ot F17.200 NICOTINE DEPENDENCE, UNSPECIFIED, UNCOMP 01/29/2018 TEO YAOINE E KENO DEALER Ot J44.9 CHRONIC OBSTRUCTIVE PULMONARY DISEASE, U 01/29/2018 TEO YAOINE E KENO DEALER Ot F17.200 NICOTINE DEPENDENCE, UNSPECIFIED, UNCOMP 01/29/2018 TEO YAOINE E KENO DEALER Ot J44.9 CHRONIC OBSTRUCTIVE PULMONARY DISEASE, U 02/05/2018 EMMO CARMEN, PAYTON Soriano Ot E78.2 MIXED HYPERLIPIDEMIA 02/05/2018 MEMO CARMEN, PAYTON Soriano Ot I10 ESSENTIAL (PRIMARY) HYPERTENSION 02/05/2018 MEMO CARMEN, PAYTON Soriano Ot I25.10 ATHSCL HEART DISEASE OF [place] CORONARY 02/05/2018 MEMO CARMEN, PAYTON Soriano Ot R06.00 DYSPNEA, UNSPECIFIED 02/05/2018 MEMO CARMEN, PAYTON J Ot R07.9 CHEST PAIN, UNSPECIFIED 02/07/2018 JOEL YAO E KENO DEALER Ot F17.200 NICOTINE DEPENDENCE, UNSPECIFIED, UNCOMP 02/07/2018 JOEL YAO E KENO DEALER Ot J44.9 CHRONIC OBSTRUCTIVE PULMONARY DISEASE, U 05/07/2018 JOEL YAO E KENO DEALER Ot F17.200 NICOTINE DEPENDENCE, UNSPECIFIED, UNCOMP 05/07/2018 JOEL YAO KENO DEALER Ot J44.9 CHRONIC OBSTRUCTIVE PULMONARY DISEASE, U 05/07/2018 JOEL YAO KENO DEALER Ot R10.9 UNSPECIFIED ABDOMINAL PAIN 05/22/2018 TEO YAOINE Alcira KENO DEALER Ot F17.200 NICOTINE DEPENDENCE, UNSPECIFIED, UNCOMP 05/22/2018 JOEL YAO KENO DEALER Ot J44.9 CHRONIC OBSTRUCTIVE PULMONARY DISEASE, U 05/22/2018 TEO YAOINE E KENO DEALER Ot R10.9 UNSPECIFIED ABDOMINAL PAIN 02/12/2019 JOEL YAO KENO DEALER Ot F17.200 NICOTINE DEPENDENCE, UNSPECIFIED, UNCOMP 02/12/2019 TEO YAOINE E KENO DEALER Ot G47.34 IDIO SLEEP RELATED NONOBSTRUCTIVE ALVEOL 02/12/2019 JOEL YAO APRN Ot J30.2 OTHER SEASONAL ALLERGIC RHINITIS 02/12/2019 JOEL YAO APRN, Ot J44.1 CHRONIC OBSTRUCTIVE PULMONARY DISEASE W 03/03/2019 PAYTON HAMPTON MD, Ot E78.5 HYPERLIPIDEMIA, UNSPECIFIED 03/03/2019 PAYTON HAMPTON MD, Ot I10 ESSENTIAL (PRIMARY) HYPERTENSION 03/03/2019 PAYTON HAMPTON MD, Ot I25.10 ATHSCL HEART DISEASE OF [place] CORONARY Procedures There is no data. Results Test Result Range Lipid 1996 panel - 04/24/17 07:01 Serum or plasma triglyceride measurement (mass/volume) 79 mg/dL <150 Serum or plasma cholesterol measurement (mass/volume) 170 mg/dL < 200 Serum or plasma cholesterol in HDL measurement (mass/volume) 54 mg/ dL 40-60 Cholesterol in LDL [mass/volume] in serum or plasma by direct assay 98 mg/dL 1-129 Serum or plasma cholesterol in VLDL measurement (mass/volume) 16 mg/ dL 5-40 Complete blood count (CBC) with automated white blood cell (WBC) differential - 03/08/19 20:33 Blood leukocytes automated count (number/volume) 5.5 10*3/uL 4.3-11.0 Blood erythrocytes automated count (number/volume) 4.47 10*6/uL 4.35-5.85 Venous blood hemoglobin measurement (mass/volume) 13.6 g/dL 11.5-16.0 Blood hematocrit (volume fraction) 42 % 35-52 Automated erythrocyte mean corpuscular volume 94 [foz_us] 80-99 Automated erythrocyte mean corpuscular hemoglobin (mass per erythrocyte) 30 pg 25-34 Automated erythrocyte mean corpuscular hemoglobin concentration measurement ( mass/volume) 32 g/dL 32-36 Automated erythrocyte distribution width ratio 13.7 % 10.0-14.5 Automated blood platelet count (count/volume) 203 10*3/uL 130-400 Automated blood platelet mean volume measurement 11.1 [foz_us] 7.4-10.4 Automated blood neutrophils/100 leukocytes 57 % 42-75 Automated blood lymphocytes/100 leukocytes 27 % 12-44 Blood monocytes/100 leukocytes 15 % 0-12 Automated blood eosinophils/100 leukocytes 1 % 0-10 Automated blood basophils/100 leukocytes 0 % 0-10 Blood neutrophils automated count (number/volume) 3.2 10*3 1.8-7.8 Blood lymphocytes automated count (number/volume) 1.5 10*3 1.0-4.0 Blood monocytes automated count (number/volume) 0.9 10*3 0.0-1.0 Automated eosinophil count 0.0 10*3/uL 0.0-0.3 Automated blood basophil count (count/volume) 0.0 10*3/uL 0.0-0.1 Comprehensive metabolic panel - 03/08/19 20:33 Serum or plasma sodium measurement (moles/volume) 140 mmol/L 135-145 Serum or plasma potassium measurement (moles/volume) 3.5 mmol/L 3.6-5.0 Serum or plasma chloride measurement (moles/volume) 104 mmol/L 98-107 Carbon dioxide 24 mmol/L 21-32 Serum or plasma anion gap determination (moles/volume) 12 mmol/L 5-14 Serum or plasma urea nitrogen measurement (mass/volume) 16 mg/dL 7-18 Serum or plasma creatinine measurement (mass/volume) 0.79 mg/dL 0.60-1.30 Serum or plasma urea nitrogen/creatinine mass ratio 20 NRG Serum or plasma creatinine measurement with calculation of estimated glomerular filtration rate > NRG Serum or plasma glucose measurement (mass/volume) 89 mg/dL 70-105 Serum or plasma calcium measurement (mass/volume) 9.6 mg/dL 8.5-10.1 Serum or plasma total bilirubin measurement (mass/volume) 0.4 mg/dL 0.1-1.0 Serum or plasma alkaline phosphatase measurement (enzymatic activity/volume) 70 U/L 40-136 Serum or plasma aspartate aminotransferase measurement (enzymatic activity/ volume) 25 U/L 5-34 Serum or plasma alanine aminotransferase measurement (enzymatic activity/volume ) 23 U/L 0-55 Serum or plasma protein measurement (mass/volume) 7.3 g/dL 6.4-8.2 Serum or plasma albumin measurement (mass/volume) 4.3 g/dL 3.2-4.5 CALCIUM CORRECTED 9.4 mg/dL 8.5-10.1 Arterial blood gas measurement - 03/08/19 20:46 Blood pCO2 40 mm[Hg] 35-45 Blood pO2 66 mm[Hg] 79-93 Arterial blood bicarbonate measurement (moles/volume) 25 mmol/L 23-27 Arterial blood base excess by calculation 0.9 mmol/L -2.5 -2.5 Arterial blood oxygen saturation measurement 94 % 94-100 * Inhaled oxygen flow rate ROOM AIR NRG Arterial blood pH measurement with patient temperature correction 7.41 7.37-7.43 Arterial blood carbon dioxide, total measurement (moles/volume) 26.2 mmol/L 21.0-31.0 Body site LEFT RADIAL NRG Assessment of wrist artery patency prior to arterial puncture YES- POS NRG Setting of ventilation mode NO NRG Measurement of body temperature 99.1 NRG Encounters ACCT No. Visit Date/Time Discharge Status Pt. Type Provider Facility Loc./Unit Complaint [id number] 03/02/2019 12:15:00 03/02/2019 23:59:59 CLS Preadmit TEO YAOINE E KENO DEALER [facility] RAD NICOTINE DEPENDENCE, COPD,DYSPNEA [id number] 03/02/2019 09:43:00 03/02/2019 23:59:59 CLS Outpatient PAYTON HAMPTON MD [facility] LAB CAD [id number] 02/12/2019 15:12:00 02/12/2019 23:59:59 CLS Outpatient TEO YAOINE E KENO DEALER [facility] RAD J44.9,F17.200 [id number] 05/06/2018 10:37:00 05/06/2018 23:59:59 CLS Outpatient NAJMA JOEL E KENO DEALER [facility] RAD COPD [id number] 03/03/2018 08:15:00 03/03/2018 23:59:59 CLS Preadmit NAJMA JOEL E KENO DEALER [facility] PULM COPD [id number] 01/28/2018 09:57:00 01/28/2018 23:59:59 CLS Outpatient NAJMA JOEL E KENO DEALER [facility] RAD J44.9,J42,R06.00, F17.200 [id number] 01/23/2018 09:38:00 01/23/2018 23:59:59 CLS Outpatient PAYTON HAMPTON MD [facility] CARD CAD I25.10 [id number] 04/24/2017 06:47:00 04/24/2017 23:59:59 CLS Outpatient FIFI WEINBERG [facility] LAB I25.10 I10 E78.2 [id number] 04/23/2017 21:00:00 04/24/2017 06:20:00 DIS Outpatient KOBI AKERS DO [facility] SLEEP COPD,DYSPNEA [id number] 03/11/2017 13:08:00 03/11/2017 23:59:59 CLS Outpatient KOBI AKERS DO [facility] RT J44.9,R06.00,Z72.0 [id number] 01/21/2017 14:00:00 01/21/2017 23:59:59 CLS Outpatient FIFI WEINBERG [facility] RAD CAD,CHF, ACUTE PAIN LE [id number] 02/06/2016 08:18:00 02/06/2016 23:59:59 CLS Outpatient FIFI WEINBERG [facility] LAB CAD,CHF,HTN, HYPERLIPIDEMIA [id number] 02/06/2016 08:13:00 02/06/2016 23:59:59 CLS Outpatient PAYTON HAMPTON MD [facility] CARD CAD,CHF,CP,HTN [id number] 06/30/2014 14:23:00 07/01/2014 11:30:00 DIS Outpatient PAYTON HAMPTON MD [facility] CATH CHEST PAIN [id number] 04/13/2014 11:54:00 04/13/2014 23:59:59 CLS Outpatient PAYTON HAMPTON MD [facility] CARD CP,CAD,HTN [id number] 04/09/2014 13:57:00 04/09/2014 23:59:59 CLS Outpatient PAYTON HAMPTON MD [facility] CARD CP,CAD,HTN [id number] 03/01/2014 13:20:00 03/01/2014 23:59:59 CLS Outpatient PAYTON HAMPTON MD [facility] RAD CP,CAD,HTN [id number] 09/24/2013 07:19:00 09/24/2013 10:00:00 DIS Outpatient CHICA SCHMIDT MD [facility] SDC EPIGASTRIC PAIN; BLOATING; DIARRHEA [id number] 09/23/2013 07:10:00 09/23/2013 23:59:59 CLS Outpatient CHICA SCHMIDT MD [facility] PREOP EPIGASTRIC PAIN; BLOATING; DIARRHEA [id number] 03/08/2019 20:18:00 ACT Emergency MARIVEL SANDOVAL APRN [facility] ER COUGH,SOA [id number] 02/20/2016 07:40:00 Document Registration [id number] 02/02/2013 15:59:00 Document Registration [id number] 01/26/2013 11:39:00 Document Registration [id number] 10/21/2012 10:43:00 Document Registration [id number] 04/24/2012 14:59:00 Document Registration [id number] 04/07/2012 20:16:00 Document Registration [id number] 06/21/2010 08:00:00 Document Registration [id number] 03/22/2010 07:25:00 Document Registration [id number] 04/01/2018 16:45:00 04/01/2018 23:59:59 CLS Outpatient [facility]
[2019-03-08] MEDS ORDERED: BENZONATATE 100 MG (TESSALON) CAPSULE PO ONE (23:13)
[2019-03-08] MEDS ORDERED: BENZONATATE 100 MG (TESSALON) CAPSULE PO SCH (23:15)
[2019-03-09 00:12] VITALS: BP 134/64
--- NOTE | 2019-03-09 05:32 | Diagnostic Imaging Report ---
INDICATION: Cough. Shortness of air. COMPARISON: 02/12/2019. FINDINGS: Single frontal view of the chest demonstrates normal heart size and pulmonary vascularity. The lungs are well aerated and clear. No large pleural effusion or pneumothorax is seen. The visualized osseous structures show no acute abnormalities. Note is made of calcified aortic atherosclerosis. IMPRESSION: 1. No acute cardiopulmonary process. Dictated by: Dictated on workstation # [id number]
== END 2019-03-09 00:10 | disposition short-term general hospital (02) ==
LOC: EDUNIT# 20:16 → ER 20:18
DX: J44.1 Chronic obstructive pulmonary disease with (acute) exacerbation (principal); E03.9 Hypothyroidism, unspecified; F41.9 Anxiety disorder, unspecified; M17.0 Bilateral primary osteoarthritis of knee; M19.011 Primary osteoarthritis, right shoulder; G43.909 Migraine, unspecified, not intractable, without status migrainosus; F17.210 Nicotine dependence, cigarettes, uncomplicated; Z79.52 Long term (current) use of systemic steroids; Z87.19 Personal history of other diseases of the digestive system; Z82.49 Family history of ischemic heart disease and other diseases of the circulatory system; Z87.09 Personal history of other diseases of the respiratory system
CPT/HCPCS: 36415; 36600; 71045; 80053; 82805; 83880; 85025; 93005; 94640; 94644; 96374; 99291

== ENCOUNTER → 2019-03-24 | Outpatient (CLI) | payer MEDICARE ==
[~2019-03-24] MED LIST changes: +PRD20T PO
[2019-03-24 11:09] LABS: BUN/CREATININE RATIO 21; CREATININE SERUM 0.76 MG/DL (0.60-1.30); GFR ESTIMATED > 60
--- NOTE | 2019-03-24 12:06 | Diagnostic Imaging Report ---
PROCEDURE: CT angiography of the chest with contrast. TECHNIQUE: Multiple contiguous axial images were obtained through the chest after uneventful bolus administration of intravenous contrast. Reconstructed CTA MIP acquisitions were also performed. Auto Exposure Controls were utilized during the CT exam to meet ALARA standards for radiation dose reduction. INDICATION: Shortness of air. COMPARISON: CT chest from 05/06/2018 FINDINGS: Vasculature: No pulmonary emboli. No CT evidence of pulmonary hypertension or right ventricular strain. Thoracic aorta is normal in caliber. No aortic dissection or pseudoaneurysm. Heart and mediastinum: Subcentimeter right thyroid nodules unchanged on the right. No supraclavicular, axillary, or intra-thoracic lymphadenopathy. The heart is normal in size without pericardial effusion. Pleura: No pleural effusion or pneumothorax. Lungs and airway: No endoluminal lesion in the trachea or central bronchi. No pulmonary mass, nodule or consolidation. Severe centrilobular emphysema is unchanged. Upper abdomen: Allowing for the phase of contrast, no acute abnormality in the upper abdomen is seen. Musculoskeletal: No concerning osseous lesion. IMPRESSION: 1. No acute cardiopulmonary process. Specifically, no pulmonary emboli or acute aortic syndrome. Dictated by: Dictated on workstation # [id number]
== END ==
LOC: RAD 10:38
PROVIDERS: ATTEND Nurse Practitioner Family
DX: J44.1 Chronic obstructive pulmonary disease with (acute) exacerbation (principal); J30.2 Other seasonal allergic rhinitis; G47.34 Idiopathic sleep related nonobstructive alveolar hypoventilation; F17.200 Nicotine dependence, unspecified, uncomplicated
CPT/HCPCS: 36415; 71275; 82565; 84520

== ENCOUNTER → 2019-04-20 | Outpatient (CLI) | payer MEDICARE ==
[~2019-04-20] VITALS: Ht 160 cm; Wt 80.7 kg
[~2019-04-20] MED LIST changes: +CATHETER FLUSH 10 ML SYR IV PRN; +REGADENOSON 0.4 MG/5 ML SYR (LEXISCAN) IV ONE
[2019-04-20 09:11] VITALS: BP 136/81
[2019-04-20 09:21] VITALS: BP 132/85
--- NOTE | 2019-04-20 15:23 | STRESS TEST ---
DATE OF SERVICE: LEXISCAN MYOVIEW STRESS TEST REPORT Baseline heart rate is 56. Baseline blood pressure 136/81. Baseline EKG is sinus rhythm with no ischemic changes. In summary, the patient was injected with 10.29 mCi of technetium-99 Myoview and the resting images were obtained. Then, the patient received 0.4 mg of Lexiscan followed by 31.4 mCi of technetium-99 Myoview. Throughout the test, there were no EKG changes. Occasional APCs were noted. During recovery, heart rate and blood pressure returned to baseline. EKG returned to baseline. The resting and stress images were reviewed and compared in the short axis, horizontal long axis, and vertical long axis views. Review of the images showed breast attenuation affecting the quality of the images with mild decreased uptake at the mid anterior wall with mild reversibility. No significant ischemia was noted. SSS is 3, SDS 3, TID value 1.13. On the gated images, the left ventricle appeared to be in normal size with mild hypokinesia at the lateral wall. Calculated ejection fraction 47%. CONCLUSION: 1. The patient tolerated Lexiscan well. 2. Breast attenuation affecting the quality of the images with typical female pattern. No significant ischemia or infarction was noted. 3. Normal left ventricular size with mild hypokinesia at the lateral wall. Calculated ejection fraction of 47%. Job ID: [id number] DocumentID: [id number] Dictated Date: 04/20/2019 11:40:43 Chicken Sexer Date: 04/20/2019 15:22:56 Dictated By: PAYTON HAMPTON MD
== END ==
LOC: CARD 07:48
PROVIDERS: ATTEND Internal Medicine Cardiovascular Disease
DX: I25.10 Atherosclerotic heart disease of native coronary artery without angina pectoris (principal); I10 Essential (primary) hypertension; E78.5 Hyperlipidemia, unspecified; J44.9 Chronic obstructive pulmonary disease, unspecified; F17.200 Nicotine dependence, unspecified, uncomplicated; I08.1 Rheumatic disorders of both mitral and tricuspid valves
CPT/HCPCS: 78452; 93017; 93306

== ENCOUNTER → 2019-04-27 | Outpatient (CLI) | payer MEDICARE ==
[~2019-04-27] MED LIST changes: -CATHETER FLUSH 10 ML SYR IV PRN; -REGADENOSON 0.4 MG/5 ML SYR (LEXISCAN) IV ONE; +RT-ALBUTEROL SULF 2.5 MG/3 ML PRE-MIX VIAL INH ONE
== END ==
LOC: RT 10:42
PROVIDERS: ATTEND Nurse Practitioner Family
DX: J44.9 Chronic obstructive pulmonary disease, unspecified (principal); J30.2 Other seasonal allergic rhinitis; R06.00 Dyspnea, unspecified; F17.200 Nicotine dependence, unspecified, uncomplicated
CPT/HCPCS: 94060; 94726; 94729

== ENCOUNTER → 2019-12-15 | Outpatient (CLI) | payer MEDICARE ==
[~2019-12-15] MED LIST changes: -RT-ALBUTEROL SULF 2.5 MG/3 ML PRE-MIX VIAL INH ONE
[2019-12-15 11:03] LABS: BASOPHILS % (AUTO) 1 % (0-10); EOSINOPHILS # (AUTO) 0.2 10^3/uL (0.0-0.3); EOSINOPHILS % (AUTO) 4 % (0-10); HEMATOCRIT 43 % (35-52); LYMPHOCYTES # (AUTO) 1.6 X 10^3 (1.0-4.0); LYMPHOCYTES % (AUTO) 26 % (12-44); MEAN CORPUSCULAR HEMOGLOBIN 31 PG (25-34); MEAN CORPUSCULAR HGB CONC 33 G/DL (32-36); MEAN CORPUSCULAR VOLUME 93 FL (80-99); MEAN PLATELET VOLUME 10.9 FL (7.4-10.4); MONOCYTES # (AUTO) 0.5 X 10^3 (0.0-1.0); MONOCYTES % (AUTO) 8 % (0-12); NEUTROPHILS % (AUTO) 63 % (42-75); PLATELET COUNT 233 10^3/uL (130-400); RED CELL DISTRIBUTION WIDTH 13.2 % (10.0-14.5); WHITE BLOOD COUNT 6.4 10^3/uL (4.3-11.0)
== END ==
LOC: LAB 10:45
PROVIDERS: ATTEND Nurse Practitioner Family
DX: J44.1 Chronic obstructive pulmonary disease with (acute) exacerbation (principal); J30.2 Other seasonal allergic rhinitis; G47.34 Idiopathic sleep related nonobstructive alveolar hypoventilation
CPT/HCPCS: 36415; 83880; 85025

== ENCOUNTER → 2019-12-21 | Outpatient (CLI) | payer MEDICARE ==
[~2019-12-21] MED LIST changes: +RT-ALBUTEROL SULF 2.5 MG/3 ML PRE-MIX VIAL INH ONE; +RT-ALBUTEROL SULF 2.5 MG/3 ML PRE-MIX VIAL ONE
--- NOTE | 2019-12-21 13:09 | NUR ---
Pt came for PFT; when she arrived, she had a loud audible expiratory wheeze. She stated to me that she had run out of oxygen in her portable tanks; she had called for replacements from supplier out of [facility], but they had not replaced yet. I had pt rest before test; o2 sats 96% on RA. She also complained on chest pain on her right side of chest. She denied any pain in arm or back; she states that it felt like "she had pulled a muscle from carrying something heavy." Pt's heart rate steady; I asked pt if she would like to go to E.R. to be checked out, she stated no. I had pt continue to rest and catch her breath. She was able to perform test fully with no distress; pain was still there after test; I instructed pt to go to E.R. if pain worsened or did not go away, she stated she would. Her expiratory wheeze did go away after post bronchodilator.
== END ==
LOC: RT 12:08
PROVIDERS: ATTEND Internal Medicine Critical Care Medicine
DX: J44.1 Chronic obstructive pulmonary disease with (acute) exacerbation (principal); J30.2 Other seasonal allergic rhinitis; G47.36 Sleep related hypoventilation in conditions classified elsewhere; M79.89 Other specified soft tissue disorders
CPT/HCPCS: 94060; 94726; 94729

== ENCOUNTER → 2019-12-22 | Outpatient (CLI) | payer MEDICAID, MEDICARE ==
[~2019-12-22] MED LIST changes: +HOLD METFORMIN - RECEIVED CONTRAST 20 ML VIAL IV SCH; +IOHEXOL 350 MG/ML 100 ML (OMNIPAQUE 350) VIAL IV ONE; +NS 100 ML (IVPB) BAG IV ONE; -RT-ALBUTEROL SULF 2.5 MG/3 ML PRE-MIX VIAL INH ONE; -RT-ALBUTEROL SULF 2.5 MG/3 ML PRE-MIX VIAL ONE
[2019-12-22 09:22] LABS: BUN/CREATININE RATIO 27; CREATININE SERUM 0.74 MG/DL (0.60-1.30); GFR ESTIMATED > 60
--- NOTE | 2019-12-22 10:06 | Diagnostic Imaging Report ---
EXAMINATION: CT angiography of the chest. TECHNIQUE: Contrast enhanced thin section helical images were obtained through the chest with intravenous contrast timed for the optimal opacification of the arterial structures per CTA protocol. Post-processing, reconstructions and interpretation of angiographic images of the vessels was performed. 3D MIP reconstructions were performed and reviewed. All CT scans use one or more of the following dose optimizing techniques: automated exposure control, MA and/or KvP adjustment based on a patient size and exam type, or iterative reconstruction. INDICATION: Shortness of breath. COMPARISON: 03/24/2019 FINDINGS: There is no pulmonary embolism. Aorta is normal in caliber. There are mild coronary artery calcifications. There is no edema or pneumonia. No pleural effusion. No pneumothorax. No suspicious nodules. There is mild atelectasis in the lingula. Lungs are moderately emphysematous. Heart size is normal. No pericardial effusion. There is no axillary or supraclavicular lymphadenopathy. There is no mediastinal lymphadenopathy. Gallbladder is absent. Upper abdomen is otherwise normal. There are no suspicious osseus lesions. IMPRESSION: 1. No pulmonary embolism, emphysematous but clear lungs. Dictated by: Dictated on workstation # [id number]
== END ==
LOC: RAD 08:44
PROVIDERS: ATTEND Internal Medicine Critical Care Medicine
DX: J44.1 Chronic obstructive pulmonary disease with (acute) exacerbation (principal); M79.89 Other specified soft tissue disorders; R60.9 Edema, unspecified; R09.02 Hypoxemia
CPT/HCPCS: 36415; 71275; 82565; 84520

== ENCOUNTER 2020-08-12 21:18 | Observation (INO) | payer MEDICARE ==
[~2020-08-12] VITALS: Ht 160 cm; Wt 88.4 kg
[~2020-08-12 21:18] MED LIST changes: -HOLD METFORMIN - RECEIVED CONTRAST 20 ML VIAL IV SCH; -IOHEXOL 350 MG/ML 100 ML (OMNIPAQUE 350) VIAL IV ONE; -NS 100 ML (IVPB) BAG IV ONE
--- NOTE | 2020-08-12 21:27 | ED Chest Pain ---
General Stated Complaint: CHEST PAIN;SOA Source: patient Exam Limitations: no limitations History of Present Illness Date Seen by Provider: Aug 12, 2020 Time Seen by Provider: 21:25 Initial Comments To ER with chest pain and shortness of breath. This pain is described as both sharp and dull in the center of her chest. It began a few hours ago and was alleviated by sitting down. However it has subsequently become more constant. She does have COPD. No history of coronary stents. Does have a history of congestive heart failure for which she sees Dr. Lockwood. Timing/Duration: 1-2 days Severity/Quality: moderate Location: central Radiation: no radiation Prior CP/Workup: no prior chest pain ASA po HOME RESTORATION SERVICE SUPERVISOR: No NTG SL HOME RESTORATION SERVICE SUPERVISOR: No Associated Symptoms: shortness of breath Allergies and Home Medications Allergies Coded Allergies: aspirin (Unverified Allergy, Severe, EDEMA, 04/07/12) Home Medications Albuterol 8.5 Gm Hfa.aer.ad, 2 PUFF IH Q4H, (Reported) 2 PUFFS Carvedilol 3.125 Mg Tablet, 3.125 MG PO BID, (Reported) Losartan Potassium 100 Mg Tablet, 100 MG PO DAILY, (Reported) Pantoprazole Sodium 40 Mg Tablet.dr, 40 MG PO DAILY, (Reported) Prednisone 20 Mg Tab, 20 MG PO DAILY Take 3 tabs(60mg)daily, decrease by 1/2 tab(10mg)daily. Prescribed by: MARIVEL SANDOVAL on 03/08/19 1061 Patient Home Medication List Home Medication List Reviewed: Yes Review of Systems Review of Systems Constitutional: see HPI EENTM: No Symptoms Reported Respiratory: See HPI, SOA at Rest Cardiovascular: See HPI, Chest Pain Gastrointestinal: No Symptoms Reported Genitourinary: No Symptoms Reported Musculoskeletal: no symptoms reported Skin: no symptoms reported Psychiatric/Neurological: No Symptoms Reported Endocrine: No Symptoms Reported Hematologic/Lymphatic: No Symptoms Reported Past Lyaxdlw-Gjsfef-Jnrhxp Hx Patient Social History Type Used: Cigarettes Recent Foreign Travel: No Contact w/Someone Who Travel: No Immunizations Up To Date Tetanus Booster (TDap): Unknown PED Vaccines UTD: Yes Date of Pneumonia Vaccine: Feb 03, 2013 Past Medical History Surgeries: Yes Respiratory: Yes (COPD) COPD, Emphysema Cardiac: Yes Neurological: Yes (PT STATES HX OF MIGRAINES, NO LONGER A PROBLEM.) Reproductive Disorders: Yes (MISCARRAIGE, HYSTERECTOMY.) Sexually Transmitted Disease: No HIV/AIDS: No Gastrointestinal: Yes Abdominal Hernia Musculoskeletal: Yes (PT STATES ARTHRITIS TO R. SHOULDER, BILAT KNEES ET BACK.) Arthritis Endocrine: Yes (PT QUIT TAKING SYNTHROID IN 1995) Hypothyroidsim Loss of Vision: Bilateral Hearing Impairment: Hard of Hearing Cancer: No Psychosocial: Yes Anxiety Integumentary: No Blood Disorders: No Adverse Reaction/Blood Tranf: No Family Medical History Cardiovascular disease 19 FATHER 19 MOTHER G8 SISTER Completed stroke 19 MOTHER G8 SISTER Diabetes mellitus G8 SISTER G8 SISTER Drug abuse G8 SISTER Hypertension 19 FATHER 19 MOTHER Myocardial infarction 19 FATHER 19 MOTHER Respiratory disorder G8 SISTER No Family History of: Alzheimer's disease Physical Exam Vital Signs Vital Signs - First Documented 08/12/20 21:20 Temp 35.6 Pulse 75 B/P (MAP) 191/115 (140) Pulse Ox 99 Capillary Refill : Height, Weight, BMI Height: 5'3.00" Weight: 178lbs. 0.0oz. 80.083483go; 31.5 BMI Method:Estimated General Appearance: No Apparent Distress, WD/WN, Chronically ill HEENT: PERRL/EOMI, TMs Normal Respiratory: No Accessory Muscle Use, No Respiratory Distress, Decreased Breath Sounds, Wheezing Cardiovascular: Regular Rate, Rhythm, Normal Peripheral Pulses, Other (hypertensive, pressure of 191/115 heart rate 74 sinus. Oxygen 99% on room air.) Extremity: Normal Capillary Refill, Normal Inspection Neurologic/Psychiatric: Alert, Oriented x3 Skin: Normal Color, Warm/Dry Progress/Results/Core Measures Results/Orders Lab Results Laboratory Tests Test 08/12/20 21:45 Range/Units White Blood Count 6.4 4.3-11.0 10^3/uL Red Blood Count 4.50 3.80-5.11 10^6/uL Hemoglobin 13.7 11.5-16.0 g/dL Hematocrit 43 35-52 % Mean Corpuscular Volume 95 80-99 fL Mean Corpuscular Hemoglobin 30 25-34 pg Mean Corpuscular Hemoglobin Concent 32 32-36 g/dL Red Cell Distribution Width 13.4 10.0-14.5 % Platelet Count 232 130-400 10^3/uL Mean Platelet Volume 11.2 9.0-12.2 fL Immature Granulocyte % (Auto) 0 % Neutrophils (%) (Auto) 51 42-75 % Lymphocytes (%) (Auto) 35 12-44 % Monocytes (%) (Auto) 10 0-12 % Eosinophils (%) (Auto) 3 0-10 % Basophils (%) (Auto) 1 0-10 % Neutrophils # (Auto) 3.3 1.8-7.8 10^3/uL Lymphocytes # (Auto) 2.3 1.0-4.0 10^3/uL Monocytes # (Auto) 0.6 0.0-1.0 10^3/uL Eosinophils # (Auto) 0.2 0.0-0.3 10^3/uL Basophils # (Auto) 0.0 0.0-0.1 10^3/uL Immature Granulocyte # (Auto) 0.0 0.0-0.1 10^3/uL Prothrombin Time 11.8 L 12.2-14.7 SEC INR Comment 0.8 0.8-1.4 Activated Partial Thromboplast Time 30 24-35 SEC D-Dimer 0.47 0.00-0.49 UG/ML Sodium Level 141 135-145 MMOL/L Potassium Level 4.1 3.6-5.0 MMOL/L Chloride Level 104 98-107 MMOL/L Carbon Dioxide Level 26 21-32 MMOL/L Anion Gap 11 5-14 MMOL/L Blood Urea Nitrogen 19 H 7-18 MG/DL Creatinine 0.98 0.60-1.30 MG/DL Estimat Glomerular Filtration Rate 58 BUN/Creatinine Ratio 19 Glucose Level 99 70-105 MG/DL Calcium Level 9.1 8.5-10.1 MG/DL Corrected Calcium 9.1 8.5-10.1 MG/DL Magnesium Level 2.1 1.6-2.4 MG/DL Total Bilirubin 0.3 0.1-1.0 MG/DL Aspartate Amino Transf (AST/SGOT) 32 5-34 U/L Alanine Aminotransferase (ALT/SGPT) 35 0-55 U/L Alkaline Phosphatase 83 40-136 U/L Myoglobin 46.1 10.0-92.0 NG/ML Troponin I < 0.028 <0.028 NG/ML B-Type Natriuretic Peptide < 10.0 <100.0 PG/ML Total Protein 7.2 6.4-8.2 GM/DL Albumin 4.0 3.2-4.5 GM/DL My Orders Orders - MARIVEL SANDOVAL APRN Cbc With Automated Diff (08/12/20 21:19) Magnesium (08/12/20 21:19) Chest 1 View, Ap/Pa Only (08/12/20 21:19) Ekg Tracing (08/12/20 21:19) Comprehensive Metabolic Panel (08/12/20 21:19) Myoglobin Serum (08/12/20 21:19) Protime With Inr (08/12/20 21:19) Partial Thromboplastin Time (08/12/20 21:19) O2 (08/12/20 21:19) Monitor-Rhythm Ecg Trace Only (08/12/20 21:19) Ed Iv/Invasive Line Start (08/12/20 21:19) BNP (08/12/20 21:) Lipid Panel (08/13/20 06:00) Albuterol/Ipra Inhalation Soln (Duoneb I (08/12/20 21:30) Metoprolol Tartrate Injection (Lopressor (08/12/20 21:30) Clopidogrel Tablet (Plavix Tablet) (08/12/20 21:30) Nitroglycerin 0.4 Mg Btl 25's (Nitrostat (08/12/20 21:30) Svn Small Volume Nebulizer (08/12/20 21:23) Methylprednisolone Sod Succ (Solu-Medrol (08/12/20 21:30) Fibrin Degradation Products (08/12/20 21:45) Troponin I (08/12/20 21:45) Medications Given in ED Current Medications Medications Dose Ordered Sig/Tirso Route Start Time Stop Time Status Last Admin Dose Admin Albuterol/ Ipratropium 3 ml ONCE ONCE INH 08/12/20 21:30 08/12/20 21:31 DC 08/12/20 21:34 3 ML Clopidogrel Bisulfate 75 mg ONCE ONCE PO 08/12/20 21:30 08/12/20 21:31 DC 08/12/20 21:34 75 MG Methylprednisolone Sodium Succinate 125 mg ONCE ONCE IVP 08/12/20 21:30 08/12/20 21:31 DC 08/12/20 21:33 125 MG Metoprolol Tartrate 5 mg ONCE ONCE IV 08/12/20 21:30 08/12/20 21:31 DC 08/12/20 21:34 5 MG Nitroglycerin 1 TAB Q 5 MIN X 3 NEEDED PRN SL 08/12/20 21:30 08/12/20 22:10 0.4 MG Vital Signs/I&O 08/12/20 21:20 Temp 35.6 Pulse 75 B/P (MAP) 191/115 (140) Pulse Ox 99 Departure Communication (Admissions) Time/Spoke to Admitting Phy: 22:[address] Tellez, we'll admit due to risk factors and chest pain alleviated with nitroglycerin. Dr cerda will consult, nPO after light breakfast. 2202- sublingual nitroglycerin took the chest pain from 8 out of 10 to 2/10. Blood pressure is still elevated, 195/100, second nitroglycerin given now. Impression Primary Impression: Chest pain Disposition: HOME, SELF-CARE Condition: Stable Admissions Decision to Admit Reason: Admit from ER (General) Decision to Admit/Date: Aug 12, 2020 Time/Decision to Admit Time: 22:51 Departure-Patient Inst. Referrals: SUZY TELLEZ DO (PCP/Family) Primary Care Physician MARIVEL SANDOVAL APRN Aug 12, 2020 21:26
[2020-08-12] MEDS ORDERED: meTOprolol 5 MG/5 ML (LOPRESSOR) VIAL IV ONE (21:30)
[2020-08-12] MEDS ORDERED: CLOPIDOGREL 75 MG (PLAVIX) TABLET PO ONE (21:30)
[2020-08-12] MEDS ORDERED: methylPREDNISolone 125 MG (Solu-MEDROL) VIAL IVP ONE (21:30)
[2020-08-12] MEDS ORDERED: RT-ALBUTEROL/IPRATROPIUM 3 ML (DUONEB) VIAL INH ONE (21:30)
[2020-08-12] MEDS: NITROGLYCERIN 0.4 MG SL TABS BTL 25'S SL PRN ×2 (21:34→22:10)
[2020-08-12 22:08] LABS: BASOPHILS % (AUTO) 1 % (0-10); EOSINOPHILS # (AUTO) 0.2 10^3/uL (0.0-0.3); EOSINOPHILS % (AUTO) 3 % (0-10); HEMATOCRIT 43 % (35-52); HEMOGLOBIN 13.7 g/dL (11.5-16.0); LYMPHOCYTES # (AUTO) 2.3 10^3/uL (1.0-4.0); LYMPHOCYTES % (AUTO) 35 % (12-44); MEAN CORPUSCULAR HEMOGLOBIN 30 pg (25-34); MEAN CORPUSCULAR HGB CONC 32 g/dL (32-36); MEAN CORPUSCULAR VOLUME 95 fL (80-99); MEAN PLATELET VOLUME 11.2 fL (9.0-12.2); MONOCYTES # (AUTO) 0.6 10^3/uL (0.0-1.0); MONOCYTES % (AUTO) 10 % (0-12); NEUTROPHILS # (AUTO) 3.3 10^3/uL (1.8-7.8); NEUTROPHILS % (AUTO) 51 % (42-75); PLATELET COUNT 232 10^3/uL (130-400); WHITE BLOOD COUNT 6.4 10^3/uL (4.3-11.0)
[2020-08-12 22:18] LABS: CHLORIDE 104 MMOL/L (98-107); POTASSIUM 4.1 MMOL/L (3.6-5.0); SODIUM 141 MMOL/L (135-145)
[2020-08-12 22:19] LABS: CALCIUM 9.1 MG/DL (8.5-10.1)
[2020-08-12 22:21] LABS: GLUCOSE 99 MG/DL (70-105); TOTAL PROTEIN 7.2 GM/DL (6.4-8.2)
[2020-08-12 22:22] LABS: BILIRUBIN,TOTAL 0.3 MG/DL (0.1-1.0); CARBON DIOXIDE 26 MMOL/L (21-32)
[2020-08-12 22:23] LABS: FIBRIN DEGRADATION PRODUCTS 0.47 UG/ML (0.00-0.49); INR 0.8 (0.8-1.4); PROTHROMBIN TIME PATIENT 11.8 SEC (12.2-14.7)
[2020-08-12 22:24] LABS: ALKALINE PHOSPHATASE 83 U/L (40-136); CREATININE SERUM 0.98 MG/DL (0.60-1.30); GFR ESTIMATED 58
[2020-08-12 22:25] LABS: BUN/CREATININE RATIO 19
[2020-08-12 22:27] LABS: ALANINE AMINOTRANSFERASE 35 U/L (0-55); MAGNESIUM 2.1 MG/DL (1.6-2.4)
--- NOTE | 2020-08-12 23:07 | NUR ---
REPORT FROM JASON PRINCE
[2020-08-12 23:42] VITALS: BP 153/92
[2020-08-13] VITALS (20 sets, daily range): BP systolic 105–191; BP diastolic 52–115
[2020-08-13] MEDS ORDERED: LACTATED RINGERS 1,000 ML IV ONE (00:21)
[2020-08-13] MEDS: LACTATED RINGERS 1,000 ML IV SCH ×2 (00:50→11:36)
--- NOTE | 2020-08-13 01:55 | NUR ---
ALBUTEROL SVN Q4H AND PRN, IS QID. INITIATE 02 2-4L TO KEEP SATS GREATER THAN 90%. 02 @5L AT NIGHT. RT TO REASSESS OR REEVALUATE IN 72 HOURS OR NEEDED. Addendum: 08/13/20 at 0157 by LAZARA AKERS RT Amended: Links added.
[2020-08-13] MEDS ORDERED: RT-ALBUTEROL SULF 2.5 MG/3 ML PRE-MIX VIAL INH PRN (02:00)
[2020-08-13] MEDS ORDERED: fentaNYL INJECTION 100 MCG/2 ML AMP IVP PRN (02:15)
[2020-08-13] MEDS ORDERED: LORazepam INJ 2 MG/ML (ATIVAN) VIAL IVP PRN (02:30)
[2020-08-13 03:18] LABS: BASOPHILS % (AUTO) 0 % (0-10); EOSINOPHILS % (AUTO) 0 % (0-10); HEMATOCRIT 42 % (35-52); HEMOGLOBIN 13.7 g/dL (11.5-16.0); LYMPHOCYTES # (AUTO) 0.8 10^3/uL (1.0-4.0); LYMPHOCYTES % (AUTO) 14 % (12-44); MEAN CORPUSCULAR HEMOGLOBIN 31 pg (25-34); MEAN CORPUSCULAR HGB CONC 32 g/dL (32-36); MEAN CORPUSCULAR VOLUME 95 fL (80-99); MEAN PLATELET VOLUME 11.7 fL (9.0-12.2); MONOCYTES % (AUTO) 1 % (0-12); NEUTROPHILS # (AUTO) 4.8 10^3/uL (1.8-7.8); NEUTROPHILS % (AUTO) 84 % (42-75); PLATELET COUNT 208 10^3/uL (130-400); WHITE BLOOD COUNT 5.7 10^3/uL (4.3-11.0)
[2020-08-13 03:34] LABS: CHLORIDE 106 MMOL/L (98-107); POTASSIUM 3.6 MMOL/L (3.6-5.0); SODIUM 142 MMOL/L (135-145)
[2020-08-13 03:35] LABS: ALBUMIN 3.8 GM/DL (3.2-4.5)
[2020-08-13 03:36] LABS: CALCIUM 9.1 MG/DL (8.5-10.1); TRIGLYCERIDES 38 MG/DL (<150); VLDL CHOLESTEROL 8 MG/DL (5-40)
[2020-08-13 03:37] LABS: GLUCOSE 236 MG/DL (70-105); TOTAL PROTEIN 6.7 GM/DL (6.4-8.2)
[2020-08-13 03:38] LABS: CARBON DIOXIDE 23 MMOL/L (21-32)
[2020-08-13 03:39] LABS: BILIRUBIN,TOTAL 0.3 MG/DL (0.1-1.0)
[2020-08-13 03:41] LABS: ALKALINE PHOSPHATASE 81 U/L (40-136); CHOLESTEROL 186 MG/DL (< 200); CREATININE SERUM 0.93 MG/DL (0.60-1.30); GFR ESTIMATED > 60
[2020-08-13 03:42] LABS: BUN/CREATININE RATIO 19
[2020-08-13 03:43] LABS: HDL CHOLESTEROL 80 MG/DL (40-60)
[2020-08-13 03:44] LABS: ALANINE AMINOTRANSFERASE 33 U/L (0-55)
[2020-08-13] MEDS ORDERED: methylPREDNISolone 40 MG/ML (Solu-MEDROL) VIAL IV SCH (06:00)
--- NOTE | 2020-08-13 06:25 | History & Physical-Hospitalist ---
History of Present Illness HPI/Chief Complaint CC: Chest pain HPI: This is a 60[facility] clinic patient of mine with h/o CAD and COPD who presented to the ER after experiencing chest pain the past 2 days with elevated BP. 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 Troponins were all negative and ECHO ordered and Dr Machado was consulted. Source: patient Exam Limitations: no limitations Date Seen 08/13/20 Time Seen by a Provider: 11:30 Attending Physician Siria Gordon DO PCP Siria Gordon DO Referring Physician Date of Admission Aug 12, 2020 at 23:00 Home Medications & Allergies Home Medications Reviewed patient Home Medication Reconciliation performed by pharmacy medication reconciliations mail carrier technician and/or nursing. Patients Allergies have been reviewed. Allergies Allergies Coded Allergies aspirin (Unverified Allergy, Severe, EDEMA, 04/07/12) Past Tfemksq-Aierer-Hqwahk Hx Past Med/Social Hx: Reviewed Nursing Past Med/Soc Hx, Reviewed and Corrections made Patient Social History Marrital Status: Employed/Student: employed Alcohol Use: Denies Use Recreational Drug Use: No Smoking Status: Light Tobacco Smoker Type Used: Cigarettes 2nd Hand Smoke Exposure: Yes Recent Foreign Travel: No Contact w/other who traveled: No Recent Hopitalizations: No Recent Infectious Disease Expo: No Immunizations Up To Date Tetanus Booster (TDap): Unknown Pediatric: Yes Date of Pneumonia Vaccine: Feb 03, 2013 Seasonal Allergies Seasonal Allergies: No Past Medical History Surgeries: Coronary Stent Respiratory: COPD Cardiac: Coronary Artery Disease, Hypertension Reproductive: Yes (MISCARRAIGE, HYSTERECTOMY.) Sexually Transmitted Disease: No HIV/AIDS: No Gastrointestinal: Abdominal Hernia Musculoskeletal: Arthritis Endocrine: Hypothyroidsim Loss of Vision: Bilateral Hearing Impairment: Hard of Hearing Psychosocial: Anxiety History of Blood Disorders: No Adverse Reaction to Blood Hunt: No Family History Cardiovascular disease 19 FATHER 19 MOTHER G8 SISTER Completed stroke 19 MOTHER G8 SISTER Diabetes mellitus G8 SISTER G8 SISTER Drug abuse G8 SISTER Hypertension 19 FATHER 19 MOTHER Myocardial infarction 19 FATHER 19 MOTHER Respiratory disorder G8 SISTER No Family History of: Alzheimer's disease Review of Systems Constitutional: see HPI Cardiovascular: chest pain Physical Exam Physical Exam Vital Signs Vital Signs - First Documented 08/12/20 08/13/20 08/13/20 21:20 00:49 01:39 Temp 35.6 Pulse 75 B/P (MAP) 191/115 (140) Pulse Ox 99 O2 Flow Rate 3.50 FiO2 21 Capillary Refill : Less Than 3 Seconds Height, Weight, BMI Height: 5'3.00" Weight: 178lbs. 0.0oz. 80.880583ci; 34.53 BMI Method:Estimated General Appearance: No Apparent Distress, Chronically ill Eyes: Right Eye Normal Inspection, Right Eye PERRL HEENT: PERRL/EOMI, Normal ENT Inspection, Pharynx Normal, Moist Mucous Membra joel Neck: Full Range of Motion, Normal Inspection, Non Tender Respiratory: Chest Non Tender, Lungs Clear, Normal Breath Sounds, No Accessory Muscle Use, No Respiratory Distress Cardiovascular: Regular Rate, Rhythm, No Edema, No Gallop, No JVD, No Murmur, Normal Peripheral Pulses Gastrointestinal: Normal Bowel Sounds, No Organomegaly, No Pulsatile Mass, Non Tender, Soft Back: Normal Inspection, No CVA Tenderness, No Vertebral Tenderness Extremity: Normal Capillary Refill, Normal Inspection, Normal Range of Motion, Non Tender, No Calf Tenderness, No Pedal Edema Neurologic/Psychiatric: Alert, Oriented x3, No Motor/Sensory Deficits, Normal Mood/Affect Skin: Normal Color, Warm/Dry Lymphatic: No Adenopathy Results Results/Procedures Labs Laboratory Tests 08/12/20 21:45 08/13/20 03:00 Patient resulted labs reviewed. Assessment/Plan Admission Diagnosis Chest pain r/o ACS CAD previous stent HTN urgently elevated COPD Smoker Plan: ACS r/o Admission Status: Observation Diagnosis/Problems Diagnosis/Problems (1) Chest pain Status: Acute Clinical Quality Measures AMI/AHF: ASA po Prior to arrival: No DVT/VTE Risk/Contraindication: Risk Factor Score Per Nursin RFS Level Per Nursing on Admit: 4+=Very High SIRIA GORDON DO Aug 13, 2020 06:25
[2020-08-13] MEDS: RT-ALBUTEROL SULF 2.5 MG/3 ML PRE-MIX VIAL INH SCH ×3 (07:03→14:21)
--- NOTE | 2020-08-13 07:53 | Diagnostic Imaging Report ---
Indication: Chest pain and dyspnea. Comparison: 03/08/2019. Discussion: Single portable upright view of the chest was obtained. Normal heart size. No consolidation, pleural fluid, or pneumothorax. No osseous abnormality. Impression: 1. Negative portable chest. Dictated by: Dictated on workstation # [id number]
[2020-08-13] MEDS ORDERED: meTOproloL SUCCINATE 50 MG (TOPROL XL) TAB PO SCH (09:00)
[2020-08-13] MEDS ORDERED: CLOPIDOGREL 75 MG (PLAVIX) TABLET PO SCH (09:00)
[2020-08-13] MEDS ORDERED: ENOXAPARIN 40 MG/0.4 ML (LOVENOX) SYR SC SCH (09:00)
[2020-08-13] MEDS ORDERED: METO50TA7 PO (12:18)
[2020-08-13] MEDS ORDERED: MIRA50TA PO (12:18)
[2020-08-13] MEDS ORDERED: CETI10TA17 PO (12:18)
[2020-08-13] MEDS ORDERED: FLUT1BLS IH (12:19)
[2020-08-13] MEDS ORDERED: RT-ALBUTEROL INHALER HFA (VENTOLIN HFA) 18 GM IH PRN (13:00)
[2020-08-13] MEDS ORDERED: HEParin (CATH LAB) 2,000 ML IV ONE (15:10)
[2020-08-13] MEDS ORDERED: LIDOCAINE 1% INJ 20 ML 20 ML VIAL ONE (15:10)
[2020-08-13] MEDS ORDERED: NS IV 1000 ML 1,000 ML ONE (15:10)
[2020-08-13] MEDS ORDERED: fentaNYL INJECTION 100 MCG/2 ML AMP ONE (15:17)
[2020-08-13] MEDS ORDERED: MIDAZOLAM 5 MG/5 ML (VERSED) VIAL ONE (15:17)
[2020-08-13] MEDS ORDERED: VERAPAMIL 5 MG/2 ML (CALAN) VIAL IV ONE (15:46)
[2020-08-13] MEDS ORDERED: NITRO DRIP 25000 MCG/D5W 250 ML IV ONE (15:47)
[2020-08-13] MEDS ORDERED: HEParin 1000 UNIT/ML (10ML VIAL) FOR BOLUS ONE (15:47)
--- NOTE | 2020-08-13 16:51 | Consultation-Cardiology ---
HPI-Cardiology Cardiology Consultation: Date of Consultation 08/13/20 Date of Admission Attending Physician Siria Gordon DO Admitting Physician Siria Gordon DO Consulting Physician Roseanne MACHADO MD HPI: Time Seen by a Provider: 14:00 Chief Complaint: chest pain this is a 60-year-old lady who presented s of breath. She has history of COPD and active smoking. She also has history of hypertension but denies diabetes. Positive family history of premature CAD. Substernal chest pain sharp. Prolonged episode for a few hours. Improved with sitting down. No radiation. No exacerbating factors. Previous coronary angiography done by Dr. Lockwood in 2013 did not show any significant CAD. Mild to moderate intensity. 03/27. Review of Systems-Cardiology Review of Systems Constitutional: As described under HPI; No As described under HPI, No no symptoms reported, No chills, No fever, No lightheadedness Eyes: No As described under HPI, No no symptoms reported, No blindness, No blurred vision, No contact lenses, No drainage, No decreased acuity, No foreign body sensation, No pain, No vision change Ears/Nose/Throat: No As described under HPI, No no symptoms reported, No chronic hearing loss, No ear discharge, No ear pain, No nasal drainage, No ulcerations Respiratory: No no symptoms reported; As described under HPI; No As described under HPI, No cough, No orthopnea; shortness of breath; No SOB with excertion Cardiovascular: No no symptoms reported; As described under HPI; No As described under HPI; chest pain; No edema, No irregular heart rate, No lightheadedness, No palpitations Gastrointestinal: No no symptoms reported, No As described under HPI, No abdomen distended, No abdominal pain, No blood streaked bowels, No constipation, No diarrhea, No nausea, No vomiting, No stool coloration changes Genitourinary: No As described under HPI, No burning, No dysuria, No discharge, No frequency, No flank pain, No hematuria, No urgency : Yes : No Skin: No rash, No skin related problems, No ulcerations Psychiatric/Neurological: No anxiety, No depression, No seizure, No focal weakness, No syncope Hematologic: No bleeding abnormalities [id number] Hx Patient Social History Alcohol Use: Denies Use Recreational Drug Use: No Smoking Status: Light Tobacco Smoker Type Used: Cigarettes 2nd Hand Smoke Exposure: Yes Recent Foreign Travel: No Recent Infectious Disease Expo: No Hospitalization with Isolation: Denies Immunizations Up To Date Tetanus Booster (TDap): Unknown Date of Pneumonia Vaccine: Feb 03, 2013 Past Medical History PMH As described under Assessment. Family Medical History Family History: Cardiovascular disease 19 FATHER 19 MOTHER G8 SISTER Completed stroke 19 MOTHER G8 SISTER Diabetes mellitus G8 SISTER G8 SISTER Drug abuse G8 SISTER Hypertension 19 FATHER 19 MOTHER Myocardial infarction 19 FATHER 19 MOTHER Respiratory disorder G8 SISTER No Family History of: Alzheimer's disease Allergies and Home Medications Allergies Coded Allergies: aspirin (Unverified Allergy, Severe, EDEMA, 04/07/12) Home Medications Albuterol 8.5 Gm Hfa.aer.ad, 2 PUFF IH Q4H PRN for SHORTNESS OF BREATH, (Reported) 2 PUFFS Cetirizine HCl 10 Mg Tablet, 10 MG PO DAILY, (Reported) Fluticasone/Vilanterol 1 Each Blst.w.dev, 1 EACH IH DAILY, (Reported) Losartan Potassium 100 Mg Tablet, 100 MG PO DAILY, (Reported) Metoprolol Succinate 50 Mg Tab.er.24h, 50 MG PO DAILY, (Reported) Mirabegron 50 Mg Tab.er.24h, 50 MG PO DAILY, (Reported) Pantoprazole Sodium 40 Mg Tablet.dr, 40 MG PO DAILY, (Reported) Patient Home Medication List Home Medication List Reviewed: Yes Physical Exam-Cardiology Physical Exam Vital Signs/I&O 08/13/20 08/13/20 08/13/20 08/13/20 07:00 07:03 07:18 08:00 Temp 35.8 Pulse 63 60 Resp 17 B/P (MAP) 132/84 (100) Pulse Ox 95 95 O2 Delivery Nasal Cannula Nasal Cannula Nasal Cannula O2 Flow Rate 3.00 3.50 3.50 08/13/20 08/13/20 08/13/20 08/13/20 08:00 10:13 11:20 12:00 Temp 36.2 Pulse 73 Resp 18 B/P (MAP) 135/81 (99) Pulse Ox 96 93 O2 Delivery Nasal Cannula Nasal Cannula Nasal Cannula Nasal Cannula O2 Flow Rate 3.50 3.00 3.50 2.00 08/13/20 08/13/20 08/13/20 12:45 14:21 16:00 Temp 36.4 Pulse 6 70 Resp 18 B/P (MAP) 130/80 (97) Pulse Ox 91 94 O2 Delivery Nasal Cannula Nasal Cannula O2 Flow Rate 2.00 3.50 Capillary Refill : Less Than 3 Seconds Constitutional: appears stated age, AAO x 3; No apparent distress; well- developed, well-nourished HEENT: PERRL; No discharge; hearing is well preserved, oral hygience is good; No ulceration, No xanthelasmas are seen Neck: No carotid bruit; carotid pulses are 2 + bilaterally Respiratory: chest is bilaterally symmetric, lungs clear to auscultation Cardiovascular: regular rate-rhythm, S1 and S2; No diastolic murmur, No systol ic murmur Gastrointestinal: soft, audible bowel sounds; No spleenomegaly Rectal: deferred Extremities: normal range of motion, non-tender, normal inspection; No clubbing, No cyanosis; no lower extremity edema bilateral; No significant edema Neurologic/Psychiatric: no motor/sensory deficits, alert, normal mood/affect, oriented x 3, power is 5/5 both on sides Skin: normal color, warm/dry; No rash, No ulcerations Data Review Labs Laboratory Tests 08/12/20 21:45: White Blood Count 6.4, Red Blood Count 4.50, Hemoglobin 13.7, Hematocrit 43, Mean Corpuscular Volume 95, Mean Corpuscular Hemoglobin 30, Mean Corpuscular Hemoglobin Concent 32, Red Cell Distribution Width 13.4, Platelet Count 232, Mean Platelet Volume 11.2, Immature Granulocyte % (Auto) 0, Neutrophils (%) (Auto) 51, Lymphocytes (%) (Auto) 35, Monocytes (%) (Auto) 10, Eosinophils (%) (Auto) 3, Basophils (%) (Auto) 1, Neutrophils # (Auto) 3.3, Lymphocytes # (Auto) 2.3, Monocytes # (Auto) 0.6, Eosinophils # (Auto) 0.2, Basophils # (Auto) 0.0, Immature Granulocyte # (Auto) 0.0, Prothrombin Time 11.8L, INR Comment 0.8, Activated Partial Thromboplast Time 30, D-Dimer 0.47, Sodium Level 141, Potassium Level 4.1, Chloride Level 104, Carbon Dioxide Level 26, Anion Gap 11, Blood Urea Nitrogen 19H, Creatinine 0.98, Estimat Glomerular Filtration Rate 58, BUN/Creatinine Ratio 19, Glucose Level 99, Calcium Level 9.1, Corrected Calcium 9.1, Magnesium Level 2.1, Total Bilirubin 0.3, Aspartate Amino Transf (AST/SGOT) 32, Alanine Aminotransferase (ALT/SGPT) 35, Alkaline Phosphatase 83, Myoglobin 46.1, Troponin I < 0.028, B-Type Natriuretic Peptide < 10.0, Total Protein 7.2, Albumin 4.0 08/13/20 03:00: White Blood Count 5.7, Red Blood Count 4.46, Hemoglobin 13.7, Hematocrit 42, Mean Corpuscular Volume 95, Mean Corpuscular Hemoglobin 31, Mean Corpuscular Hemoglobin Concent 32, Red Cell Distribution Width 13.2, Platelet Count 208, Mean Platelet Volume 11.7, Immature Granulocyte % (Auto) 0, Neutrophils (%) (Auto) 84H, Lymphocytes (%) (Auto) 14, Monocytes (%) (Auto) 1, Eosinophils (%) (Auto) 0, Basophils (%) (Auto) 0, Neutrophils # (Auto) 4.8, Lymphocytes # (Auto) 0.8L, Monocytes # (Auto) 0.0, Eosinophils # (Auto) 0.0, Basophils # (Auto) 0.0, Immature Granulocyte # (Auto) 0.0, Sodium Level 142, Potassium Level 3.6, Chloride Level 106, Carbon Dioxide Level 23, Anion Gap 13, Blood Urea Nitrogen 18, Creatinine 0.93, Estimat Glomerular Filtration Rate > 60, BUN/Creatinine Ratio 19, Glucose Level 236H, Calcium Level 9.1, Corrected Calcium 9.3, Total Bilirubin 0.3, Aspartate Amino Transf (AST/SGOT) 28, Alanine Aminotransferase (ALT/SGPT) 33, Alkaline Phosphatase 81, Troponin I < 0.028, Total Protein 6.7, Albumin 3.8, Triglycerides Level 38, Cholesterol Level 186, LDL Cholesterol Direct 102, VLDL Cholesterol 8, HDL Cholesterol 80H 08/13/20 09:20: Troponin I < 0.028 ECG Impression ECG Initial ECG Rhythm: Normal Sinus Initial ECG Impression: Normal A/P-Cardiology Assessment/Admission Diagnosis prolonged chest pain, shortness of breath, Active smoking, COPD, Hypertension, Plan prolonged chest pain, Negative serial troponin, negative EKG. Prolonged chest pain, significant risk factors for coronary disease. Discussed at length with the patient and recommended coronary angiography. 1 percent risk of major complication including was discussed. Patient accepted all risks and will like to proceed with coronary angiography and possible intervention. Patient is allergic to aspirin. Active smoking, strongly recommended to quit. Shortness of breath, negative BNP. No florid congestive Heart failure on examination. Echocardiogram. COPD,defer to the primary team. Hypertension,continue outpatient medical therapy. Thank you for your consultation. Please call me if you have any questions. Camelia Machado MD, FACP, FACC, FSCAI, FHRS, CCDS Interventional Cardiology Cardiac Electrophysiology Vascular Medicine and Endovascular Interventions Clinical Quality Measures AMI/AHF: ASA po Prior to arrival: No DVT/VTE Risk/Contraindication: Risk Factor Score Per Nursin RFS Level Per Nursing on Admit: 4+=Very High Roseanne MACHADO MD Aug 13, 2020 16:51
--- NOTE | 2020-08-13 16:55 | Cardiac Procedure Note-CS/ASA ---
Pre-Procedure Note Pre-Op Procedure Note H&P Reviewed The H&P was reviewed, patient examined and no changes noted. Date H&P Reviewed: Aug 13, 2020 Time H&P Reviewed: 14:00 Conscious Sedation Pre-Proced Time 14:00 ASA Score 3 For ASA 3 and 4: Consider anesthesia and medical clearance. Also, for patients with a history of failed moderate sedation consider anesthesia. Airway Lungs Heart ASA score ASA 1: a normal healthy patient ASA 2: a patient with a mild systemic disease (mid diabetes, controlled hypertension, obesity ASA 3: a patient with a severe systemic disease that limits activity (angina, COPD, prior Myocardial infarction) ASA 4: a patient with an incapacitating disease that is a constant threat to life (CHF, renal failure) ASA 5: a moribund patient not expected to survive 24 hrs. (ruptured aneurysm) ASA 6: a declared brain- patient whose organs are being harvested. For emergent operations, add the letter E after the classification Mallampati Classification Grade 1 Sedation Plan Analgesia, Amnesia, Plan communicated to team members, Discussed options with patient/fam, Discussed risks with patient/fam The patient is an appropriate candidate to undergo the planned procedure, sedation, and anesthesia. The patient immediately re-assessed prior to indication. Roseanne SALTER MD Aug 13, 2020 16:55
[2020-08-13] MEDS ORDERED: NS IV 1000 ML 1,000 ML IV SCH (16:59)
--- NOTE | 2020-08-13 16:59 | Coronary Angiography Report ---
Coronary Angiography Report DATE OF PROCEDURE: 08/13/20 INDICATION: prolonged chest pain PREOPERATIVE DIAGNOSIS: prolonged chest pain POSTOPERATIVE DIAGNOSIS: mild CAD HISTORY: 60-year-old lady with active smoking, hypertension who presents with prolonged episode of chest pain. Negative serial troponin. Negative EKG. Therefore, the patient was scheduled for coronary angiography. PROCEDURES PERFORMED: 1.Coronary angiography. 2.Left heart catheterization. 3. Aortic arch angiogram: Medical necessity: To rule out aneurysm or dissection in a patient with prolonged chest pain and minimal CAD. COMPLICATIONS: None. SPECIMENS: None. ESTIMATED BLOOD LOSS: 10 mL ANESTHESIA: Conscious sedation ANTICOAGULATION: IV heparin CONTRAST: 52 mL. FLUOROSCOPY: 2 minutes 10 seconds. FLOUROSCOPY DOSE: 268 mgy. PROCEDURE DETAILS: The patient is a 60 female and was brought to the electronic lab technician after informed consent was taken. All the risks and complications were explained in detail; this included the risk of bleeding, vascular damage, stroke, MO and even . The patient was draped and prepped in the usual sterile fashion. Access was gained in the right radial artery with a 6 Croatian sheath. Coronary angiography, aortic arch angiogram and left heart catheterization was performed with the Hardy catheter. FINDINGS: 1.Left main: patent. 2.LAD: patent. Septal laundry aid has ostial disease. First diagonal artery has mild disease. 3.Left circumflex artery: patent. 4.RCA: mild ostial disease. 5.Left heart catheterization: LV pressure 116/7 mmHg. LVEDP 14 mm Hg. Aortic pressure 101/67 mmHg. Normal LV function with no wall motion abnormalities. No gradient across the aortic valve. 6. Aortic arch angiogram: No evidence of proximal aneurysm or dissection. Patent proximal segments of the great arteries. CONCLUSIONS: minimal CAD. Normal LV function. Smoking cessation was strongly recommended. Continue secondary prevention measures. Start Lipitor 10 mg daily. Patient is allergic to aspirin. Follow-up with Dr. Lockwood. Camelia Machado MD, FACP, FACC, [facility] Interventional Cardiology Roseanne MACHADO MD Aug 13, 2020 16:59
[2020-08-13] MEDS ORDERED: PATIENT MAY USE OWN MEDS, ALL PO SCH (17:00)
--- NOTE | 2020-08-13 19:42 | NUR ---
DAY SHIFT RN WENT OVER DC INSTRUCTIONS WITH PT AND TOOK OUT PTS IV. RIGHT RADIAL CATH SITE C/D/I. PTS RIDE IS HERE. PT TAKEN DOWN TO ED IN WHEELCHAIR BY PCT. NO QUESTIONS FROM PT AT THIS TIME.
[2020-08-13] MEDS ORDERED: ADVAIR HFA 115/21 MCG INHALER 8 GM IH SCH (20:00)
--- NOTE | 2020-08-14 06:18 | Discharge Summary ---
Diagnosis/Chief Complaint Date of Admission Aug 12, 2020 at 23:00 Date of Discharge Aug 13, 2020 at 19:42 Discharge Date: Aug 13, 2020 Discharge Diagnosis Chest pain from HTN urgency Normal cardiac cath Discharge Summary Discharge Physical Examination Allergies: Coded Allergies: aspirin (Unverified Allergy, Severe, EDEMA, 04/07/12) Vitals & I&Os Vital Signs Date Time Temp Pulse Resp B/P (MAP) Pulse Ox O2 Delivery O2 Flow Rate FiO2 08/13/20 19:17 36.6 67 18 127/73 (91) 96 Room Air 08/13/20 16:53 2.00 08/13/20 01:39 21 Hospital Course Was the Problem List Reviewed?: Yes Brief course after admitted troponins negative but Dr Machado took her to skill labor and no obstructive disease so DC in improved condition. Labs (last 24 hrs) Laboratory Tests 08/12/20 21:45: White Blood Count 6.4, Red Blood Count 4.50, Hemoglobin 13.7, Hematocrit 43, Mean Corpuscular Volume 95, Mean Corpuscular Hemoglobin 30, Mean Corpuscular Hemoglobin Concent 32, Red Cell Distribution Width 13.4, Platelet Count 232, Mean Platelet Volume 11.2, Immature Granulocyte % (Auto) 0, Neutrophils (%) (Auto) 51, Lymphocytes (%) (Auto) 35, Monocytes (%) (Auto) 10, Eosinophils (%) (Auto) 3, Basophils (%) (Auto) 1, Neutrophils # (Auto) 3.3, Lymphocytes # (Auto) 2.3, Monocytes # (Auto) 0.6, Eosinophils # (Auto) 0.2, Basophils # (Auto) 0.0, Immature Granulocyte # (Auto) 0.0, Prothrombin Time 11.8L, INR Comment 0.8, Activated Partial Thromboplast Time 30, D-Dimer 0.47, Sodium Level 141, Potassium Level 4.1, Chloride Level 104, Carbon Dioxide Level 26, Anion Gap 11, Blood Urea Nitrogen 19H, Creatinine 0.98, Estimat Glomerular Filtration Rate 58, BUN/Creatinine Ratio 19, Glucose Level 99, Calcium Level 9.1, Corrected Calcium 9.1, Magnesium Level 2.1, Total Bilirubin 0.3, Aspartate Amino Transf (AST/SGOT) 32, Alanine Aminotransferase (ALT/SGPT) 35, Alkaline Phosphatase 83, Myoglobin 46.1, Troponin I < 0.028, B-Type Natriuretic Peptide < 10.0, Total Protein 7.2, Albumin 4.0 08/13/20 03:00: White Blood Count 5.7, Red Blood Count 4.46, Hemoglobin 13.7, Hematocrit 42, Mean Corpuscular Volume 95, Mean Corpuscular Hemoglobin 31, Mean Corpuscular Hemoglobin Concent 32, Red Cell Distribution Width 13.2, Platelet Count 208, Mean Platelet Volume 11.7, Immature Granulocyte % (Auto) 0, Neutrophils (%) (Auto) 84H, Lymphocytes (%) (Auto) 14, Monocytes (%) (Auto) 1, Eosinophils (%) (Auto) 0, Basophils (%) (Auto) 0, Neutrophils # (Auto) 4.8, Lymphocytes # (Auto) 0.8L, Monocytes # (Auto) 0.0, Eosinophils # (Auto) 0.0, Basophils # (Auto) 0.0, Immature Granulocyte # (Auto) 0.0, Sodium Level 142, Potassium Level 3.6, Chloride Level 106, Carbon Dioxide Level 23, Anion Gap 13, Blood Urea Nitrogen 18, Creatinine 0.93, Estimat Glomerular Filtration Rate > 60, BUN/Creatinine Ratio 19, Glucose Level 236H, Calcium Level 9.1, Corrected Calcium 9.3, Total Bilirubin 0.3, Aspartate Amino Transf (AST/SGOT) 28, Alanine Aminotransferase (ALT/SGPT) 33, Alkaline Phosphatase 81, Troponin I < 0.028, Total Protein 6.7, Albumin 3.8, Triglycerides Level 38, Cholesterol Level 186, LDL Cholesterol Direct 102, VLDL Cholesterol 8, HDL Cholesterol 80H 08/13/20 09:20: Troponin I < 0.028 Pending Labs Laboratory Tests 08/12/20 21:45: White Blood Count 6.4, Red Blood Count 4.50, Hemoglobin 13.7, Hematocrit 43, Mean Corpuscular Volume 95, Mean Corpuscular Hemoglobin 30, Mean Corpuscular Hemoglobin Concent 32, Red Cell Distribution Width 13.4, Platelet Count 232, Mean Platelet Volume 11.2, Immature Granulocyte % (Auto) 0, Neutrophils (%) (Auto) 51, Lymphocytes (%) (Auto) 35, Monocytes (%) (Auto) 10, Eosinophils (%) (Auto) 3, Basophils (%) (Auto) 1, Neutrophils # (Auto) 3.3, Lymphocytes # (Auto) 2.3, Monocytes # (Auto) 0.6, Eosinophils # (Auto) 0.2, Basophils # (Auto) 0.0, Immature Granulocyte # (Auto) 0.0, Prothrombin Time 11.8, INR Comment 0.8, Activated Partial Thromboplast Time 30, D-Dimer 0.47, Sodium Level 141, Potassium Level 4.1, Chloride Level 104, Carbon Dioxide Level 26, Anion Gap 11, Blood Urea Nitrogen 19, Creatinine 0.98, Estimat Glomerular Filtration Rate 58, BUN/Creatinine Ratio 19, Glucose Level 99, Calcium Level 9.1, Corrected Calcium 9.1, Magnesium Level 2.1, Total Bilirubin 0.3, Aspartate Amino Transf (AST/SGOT) 32, Alanine Aminotransferase (ALT/SGPT) 35, Alkaline Phosphatase 83, Myoglobin 4 6.1, Troponin I < 0.028, B-Type Natriuretic Peptide < 10.0, Total Protein 7.2, Albumin 4.0 08/13/20 03:00: White Blood Count 5.7, Red Blood Count 4.46, Hemoglobin 13.7, Hematocrit 42, Mean Corpuscular Volume 95, Mean Corpuscular Hemoglobin 31, Mean Corpuscular Hemoglobin Concent 32, Red Cell Distribution Width 13.2, Platelet Count 208, Mean Platelet Volume 11.7, Immature Granulocyte % (Auto) 0, Neutrophils (%) (Auto) 84, Lymphocytes (%) (Auto) 14, Monocytes (%) (Auto) 1, Eosinophils (%) (Auto) 0, Basophils (%) (Auto) 0, Neutrophils # (Auto) 4.8, Lymphocytes # (Auto) 0.8, Monocytes # (Auto) 0.0, Eosinophils # (Auto) 0.0, Basophils # (Auto) 0.0, Immature Granulocyte # (Auto) 0.0, Sodium Level 142, Potassium Level 3.6, Chloride Level 106, Carbon Dioxide Level 23, Anion Gap 13, Blood Urea Nitrogen 18, Creatinine 0.93, Estimat Glomerular Filtration Rate > 60, BUN/Creatinine Ratio 19, Glucose Level 236, Calcium Level 9.1, Corrected Calcium 9.3, Total Bilirubin 0.3, Aspartate Amino Transf (AST/SGOT) 28, Alanine Aminotransferase (ALT/SGPT) 33, Alkaline Phosphatase 81, Troponin I < 0.028, Total Protein 6.7, Albumin 3.8, Triglycerides Level 38, Cholesterol Level 186, LDL Cholesterol Direct 102, VLDL Cholesterol 8, HDL Cholesterol 80 08/13/20 09:20: Troponin I < 0.028 Discharge Home Medications: Active Scripts Active Reported Breo Ellipta 200-25 Mcg INH (Fluticasone/Vilanterol) 1 Each Blst.w.dev 1 Each IH DAILY Cetirizine HCl 10 Mg Tablet 10 Mg PO DAILY Myrbetriq (Mirabegron) 50 Mg Tab.er.24h 50 Mg PO DAILY Metoprolol Succinate 50 Mg Tab.er.24h 50 Mg PO DAILY Proair Hfa (Albuterol) 8.5 Gm Hfa.aer.ad 2 Puff IH Q4H PRN 2 PUFFS Losartan Potassium 100 Mg Tablet 100 Mg PO DAILY Protonix (Pantoprazole Sodium) 40 Mg Tablet.dr 40 Mg PO DAILY Instructions to patient/family Please see electronic discharge instructions given to patient. Clinical Quality Measures AMI/AHF: ASA po Prior to arrival: No DVT/VTE Risk/Contraindication: Risk Factor Score Per Nursin RFS Level Per Nursing on Admit: 4+=Very High SUZY TELLEZ DO Aug 14, 2020 06:18
[2020-08-14] MEDS ORDERED: LORATADINE (CLARITIN) 10 MG TAB PO SCH (09:00)
[2020-08-14] MEDS ORDERED: NON-FORMULARY MEDICATION 1 EA EA (Mirabegron (Myrbetriq) 50 MG) PO SCH (09:00)
[2020-08-14] MEDS ORDERED: meTOproloL SUCCINATE 50 MG (TOPROL XL) TAB PO SCH (09:00)
[2020-08-14] MEDS ORDERED: LOSARTAN 100 MG (COZAAR) TABLET PO SCH (09:00)
[2020-08-14] MEDS ORDERED: PANTOPRAZOLE 40 MG (PROTONIX) TAB PO SCH (09:00)
== END 2020-08-13 19:42 | disposition home or self-care, planned readmission (81) ==
LOC: EDUNIT# 21:18 → ER 21:19 → CSD 23:00
PROVIDERS: ADMIT Internal Medicine; ATTEND Internal Medicine
DX: I25.10 Atherosclerotic heart disease of native coronary artery without angina pectoris (principal); I10 Essential (primary) hypertension; J44.9 Chronic obstructive pulmonary disease, unspecified; E03.9 Hypothyroidism, unspecified; F41.9 Anxiety disorder, unspecified; M19.90 Unspecified osteoarthritis, unspecified site; F17.210 Nicotine dependence, cigarettes, uncomplicated; Z79.51 Long term (current) use of inhaled steroids; Z79.899 Other long term (current) drug therapy; Z88.5 Allergy status to narcotic agent; Z95.5 Presence of coronary angioplasty implant and graft; Z82.3 Family history of stroke; Z83.3 Family history of diabetes mellitus
CPT/HCPCS: 36221; 71045; 80053 ×2; 80061; 83735; 83874; 83880; 84484 ×2; 85025 ×2; 85379; 85610; 85730; 93005; 93041; 93306; 93458; 94640; 94664; 94760; 96374; 99284; C1769; C1894; 36415

== ENCOUNTER 2021-02-07 06:35 | Day surgery (SDC) | payer MEDICARE ==
[2021-02-07] VITALS (21 sets, daily range): BP systolic 81–132; BP diastolic 56–91
[~2021-02-07] VITALS: Ht 160 cm; Wt 91.0 kg
[~2021-02-07 06:35] MED LIST changes: +CETI10TA17 PO; +FLUT1BLS IH; +METO50TA7 PO; +MIRA50TA PO
[2021-02-07] MEDS ORDERED: NS IV 1000 ML 1,000 ML ONE (06:51)
[2021-02-07] MEDS ORDERED: HEParin (CATH LAB) 2,000 ML IV ONE (06:51)
[2021-02-07] MEDS ORDERED: LIDOCAINE 1% INJ 20 ML 20 ML VIAL ONE (06:51)
[2021-02-07] MEDS ORDERED: NS IV 1000 ML 1,000 ML IV SCH ×2 (07:00→09:30)
[2021-02-07 07:15] LABS: HEMOGLOBIN 14.5 g/dL (11.5-16.0); MEAN PLATELET VOLUME 10.8 fL (9.0-12.2); WHITE BLOOD COUNT 10.7 10^3/uL (4.3-11.0)
[2021-02-07 07:31] LABS: INR 0.8 (0.8-1.4); PROTHROMBIN TIME PATIENT 10.9 SEC (12.2-14.7)
[2021-02-07 07:37] LABS: ALANINE AMINOTRANSFERASE 21 U/L (0-55); ALKALINE PHOSPHATASE 82 U/L (40-136); BILIRUBIN,TOTAL 0.4 MG/DL (0.1-1.0); BUN/CREATININE RATIO 21; CALCIUM 8.9 MG/DL (8.5-10.1); CARBON DIOXIDE 27 MMOL/L (21-32); CHLORIDE 99 MMOL/L (98-107); CHOLESTEROL 201 MG/DL (< 200); GFR ESTIMATED > 60; GLUCOSE 88 MG/DL (70-105); HDL CHOLESTEROL 90 MG/DL (40-60); POTASSIUM 3.7 MMOL/L (3.6-5.0); SODIUM 138 MMOL/L (135-145); TOTAL PROTEIN 6.9 GM/DL (6.4-8.2); TRIGLYCERIDES 86 MG/DL (<150); VLDL CHOLESTEROL 17 MG/DL (5-40)
[2021-02-07] MEDS ORDERED: fentaNYL INJ 100 MCG/2 ML AMP ONE (08:01)
[2021-02-07] MEDS ORDERED: MIDAZOLAM 5 MG/5 ML (VERSED) VIAL ONE (08:01)
[2021-02-07] MEDS ORDERED: HYDR25TA4 PO (08:19)
[2021-02-07] MEDS ORDERED: FLUT9.9S NS (08:19)
[2021-02-07] MEDS ORDERED: RT-ALBUINH INH (08:19)
[2021-02-07] MEDS ORDERED: BUDE10.7 IH (08:19)
[2021-02-07] MEDS ORDERED: LOSA100T57 PO (08:19)
[2021-02-07] MEDS ORDERED: IBUP-1780 PO (08:19)
[2021-02-07] MEDS ORDERED: MONT10TA32 PO (08:19)
[2021-02-07] MEDS ORDERED: PANT40TA52 PO (08:19)
[2021-02-07] MEDS ORDERED: PRD10T PO (08:19)
[2021-02-07] MEDS ORDERED: NITR0.4T39 SL (08:19)
[2021-02-07] MEDS ORDERED: CYCL10TA9 PO (08:19)
--- NOTE | 2021-02-07 09:19 | Cardiac Procedure Note-CS/ASA ---
Pre-Procedure Note Pre-Op Procedure Note H&P Reviewed The H&P was reviewed, patient examined and no changes noted. Date H&P Reviewed: Feb 07, 2021 Time H&P Reviewed: 08:50 Conscious Sedation Pre-Proced Time 08:50 ASA Score 3 For ASA 3 and 4: Consider anesthesia and medical clearance. Also, for patients with a history of failed moderate sedation consider anesthesia. Airway Lungs Heart ASA score ASA 1: a normal healthy patient ASA 2: a patient with a mild systemic disease (mid diabetes, controlled hypertension, obesity ASA 3: a patient with a severe systemic disease that limits activity (angina, COPD, prior Myocardial infarction) ASA 4: a patient with an incapacitating disease that is a constant threat to life (CHF, renal failure) ASA 5: a moribund patient not expected to survive 24 hrs. (ruptured aneurysm) ASA 6: a declared brain- patient whose organs are being harvested. For emergent operations, add the letter E after the classification Mallampati Classification Grade 2 Sedation Plan Analgesia, Amnesia, Plan communicated to team members, Discussed options with patient/fam, Discussed risks with patient/fam The patient is an appropriate candidate to undergo the planned procedure, sedation, and anesthesia. The patient immediately re-assessed prior to indication. FIDE WATSON MD FACP FAC CCDS Feb 07, 2021 09:19
--- NOTE | 2021-02-07 09:24 | Discharge Inst-Post CATH ---
Discharge Inst-CATH/EP Post Cardiac Cath/EP D/C Inst Follow Up/Plan F/u with Dr Lockwood next week ACTIVITY * Go Home directly and rest. * Limit activity of the leg (or wrist if it was used) for 7 days including aerobics, swimming, jogging, bicycling, etc. * Restrict stair-climbing for 7 days if possible, if not, climb up with your non -cath leg, then bring together on the same step. * Avoid lifting, pushing, pulling or excessive movement of the affected extr emity for 7 days. * Customary sexual activity may be resumed after 2 days-use caution not to use a position that strains or causes pain to the affected extremity. * No driving for 24 hours. * NO SMOKING. * Avoid straining for bowel movements for 7 days. * Gentle walking on level ground is allowed. * Returning to work will depend on the type of procedure and the results. Your doctor will discuss this with you. CALL YOUR DOCTOR FOR ANY OF THE FOLLOWING: *If bleeding from the puncture site occurs- Apply gentle pressure to site with clean cloth and call your doctor or EMS. * If a knot or lump forms under the skin, increases in size, or causes pain. * If bruising appears to be worsening or moving further down your leg instead of disappearing. * Temperature above 101 F. CARE OF YOUR GROIN INCISION; * Bruising or purple discoloration of the skin near the puncture site is common. * You may shower only, no bathtub bathing for 5 days. Be careful to avoid slipping as your leg may feel stiff. * If a closure device was used on your femoral artery, please see the attached guide regarding care of the device and your leg. * Leave dressing on FOR 24 hours. CARE OF YOUR WRIST INCISION; * Bruising or purple discoloration of the skin near the puncture site is common. * You may shower. * DO NOT submerge wrist. * Leave dressing on FOR 24 hours. FIDE WATSON MD [facility] CCDS Feb 07, 2021 09:24
--- NOTE | 2021-02-07 09:25 | Discharge Inst-Cardiology ---
Discharge Inst-Cardiac Discharge Medications Continued Medications: Albuterol Sulfate (Ventolin Hfa) 1 Puff Puff 2 PUFF INH Q4H PRN for SHORTNESS OF BREATH, PUFF Budesonide/Glycopyr/Formoterol (Breztri Aerosphere Inhaler) 10.7 Gm Hfa.aer.ad 2 PUFF IH DAILY, GM Cetirizine HCl (Cetirizine HCl) 10 Mg Tablet 10 MG PO DAILY, TAB Cyclobenzaprine HCl (Cyclobenzaprine HCl) 10 Mg Tablet 10 MG PO TID PRN for MUSCLE SPASMS, TAB Fluticasone Propionate (Flonase Allergy Relief) 9.9 Ml [place].susp 2 SPRAY NS HS, EACH Hydrochlorothiazide (Hydrochlorothiazide) 25 Mg Tablet 25 MG PO DAILY, TAB Ibuprofen (Ibuprofen) 800 Mg Tablet 800 MG PO Q8H PRN for PAIN-MILD (1-4), TAB Losartan Potassium (Losartan Potassium) 100 Mg Tablet 100 MG PO DAILY, TAB Metoprolol Succinate (Metoprolol Succinate) 50 Mg Tab.er.24h 50 MG PO DAILY, TAB Mirabegron (Myrbetriq) 50 Mg Tab.er.24h 50 MG PO DAILY, TAB Montelukast Sodium (Montelukast Sodium) 10 Mg Tablet 10 MG PO DAILY, TAB Nitroglycerin (Nitroglycerin) 0.4 Mg Tab.subl 0.4 MG SL UD PRN for CHEST PAIN, TAB Pantoprazole Sodium (Pantoprazole Sodium) 40 Mg Tablet.dr 40 MG PO DAILY, TAB Prednisone (Prednisone) 10 Mg Tab MG PO DAILY, TAB TAPER DOSE FOLLOWS: 6 TABS X 2 DAYS, 5 TABS X 2 DAYS, 4 TABS X 2 DAYS, 3 TABS X 2 DAYS, 2 TABS X 2 DAYS AND 1 TAB X2 DAYS TODAY WOULD BE 30MG AND TOMARROW 20MG FIDE WATSON MD [facility] CCDS Feb 07, 2021 09:25
[2021-02-07] MEDS ORDERED: PATIENT MAY USE OWN MEDS, ALL PO SCH (09:30)
--- NOTE | 2021-02-07 11:12 | CARDIAC CATHETERIZATION ---
DATE OF SERVICE: 02/07/2021 CARDIAC CATHETERIZATION REPORT INDICATION FOR PROCEDURE: The patient is a 60-year-old lady, patient of Dr. Lockwood, who has been experiencing increasing shortness of breath and chest discomfort. Cardiac catheterization was recommended by Dr. Lockwood and was carried out today after the patient provided an informed consent. DESCRIPTION OF PROCEDURE: She was brought to the cardiac catheterization laboratory in a fasting state. Right groin was prepared and draped in the usual sterile fashion. Lidocaine 1% was used for local anesthesia. Modified Seldinger technique was used to introduce a 7-Angolan sheath into the right femoral vein and a 5-Angolan sheath in the right femoral artery. We used a 7-Angolan [place]-Efrain catheter to carry out right heart catheterization. Oxygen saturation measurements were obtained. Cardiac output was measured by thermodilution. Pressures were recorded. The catheter was then removed. We used a 5-Angolan pigtail catheter for left heart catheterization. We used 5-Angolan JL4 for left coronary angiography and 5-Angolan JR4 catheter was used for right coronary angiography. Catheter was removed. At the end of the procedure, angiography of the right femoral artery was carried out through the sheath. Mynx was used to achieve hemostasis of the arterial site. Manual pressure was used to achieve hemostasis of the venous site. The patient tolerated the procedure well. HEMODYNAMICS: 1. Pulmonary artery pressure was 33/14 with a mean of 33 mmHg. 2. Mean pulmonary wedge pressure was 9 mmHg. 3. Right ventricular pressure was 35/12 mmHg. 4. Mean right atrial pressure was 8 mmHg. 5. Left ventricular end-diastolic pressure was 17 mmHg. 6. There was no significant pressure gradient on pullback across the aortic valve. Ascending aortic pressure was 113/67 with a mean 84 mmHg. 7. There was no significant oxygen saturation difference between the various chambers of the heart and there was no evidence of any significant intracardiac shunt. 8. Cardiac output by thermodilution was 3.17 and cardiac index by thermodilution method was 1.64. 9. Pulmonary vascular resistance was calculated to be 3.07 Wood units. LEFT VENTRICULAR ANGIOGRAPHY: Left ventricular angiography was carried out in the right anterior oblique projection. Global left ventricular systolic function appears well preserved. Left ventricular ejection fraction is approximately 50%. CORONARY ANGIOGRAPHY: Left main coronary artery is free of significant disease. Left anterior descending artery has mild plaques and approximately 30% stenosis in its mid portion. The left circumflex artery does not exhibit significant disease. Right coronary artery is dominant and has mild plaques and approximately 30% stenosis in its proximal portion. CONCLUSIONS: 1. Angiographically mild coronary artery disease. 2. Well preserved global left ventricular systolic function with an ejection fraction of approximately 50%. 3. Mild to moderate elevation of left ventricular end-diastolic pressure. Left ventricular end-diastolic pressure was measured at approximately 17 mmHg. 4. Pulmonary artery pressure was measured at 33/14 with a mean of 23 mmHg. DISCUSSION AND RECOMMENDATIONS: Symptoms do not appear to be of coronary origin. Some degree of diastolic dysfunction is demonstrated. The patient will follow up with Dr. Lockwood as an outpatient. Job ID: [id number] DocumentID: [id number] Dictated Date: 02/07/2021 09:31:51 Buhr Dresser Date: 02/07/2021 11:11:57 Dictated By: FIDE WATSON MD, MA, FACP, FACC,
== END 2021-02-07 16:05 | disposition home or self-care (01) ==
LOC: CATH 06:35
PROVIDERS: ATTEND Internal Medicine Cardiovascular Disease
DX: I25.10 Atherosclerotic heart disease of native coronary artery without angina pectoris (principal); I11.0 Hypertensive heart disease with heart failure; I50.22 Chronic systolic (congestive) heart failure; J44.1 Chronic obstructive pulmonary disease with (acute) exacerbation; F41.9 Anxiety disorder, unspecified; E66.9 Obesity, unspecified; E78.5 Hyperlipidemia, unspecified; R25.2 Cramp and spasm; F17.210 Nicotine dependence, cigarettes, uncomplicated; Z88.6 Allergy status to analgesic agent; Z68.34 Body mass index [BMI] 34.0-34.9, adult; Z79.51 Long term (current) use of inhaled steroids; Z79.899 Other long term (current) drug therapy; Z79.1 Long term (current) use of non-steroidal anti-inflammatories (NSAID); Z79.891 Long term (current) use of opiate analgesic; Z99.81 Dependence on supplemental oxygen; Z98.890 Other specified postprocedural states
CPT/HCPCS: 80053; 80061; 85027; 85610; 85730; 87081; 93460; C1760; C1894 ×2; 36415

== ENCOUNTER → 2021-02-14 | Outpatient (CLI) | payer MEDICARE ==
[~2021-02-14] MED LIST changes: +BUDE10.7 IH; +CATHETER FLUSH 10 ML SYR IV PRN; +CYCL10TA9 PO; +FLUT9.9S NS; +HOLD METFORMIN - RECEIVED CONTRAST 20 ML VIAL IV SCH; +HYDR25TA4 PO; +IBUP-1780 PO; +IOHEXOL 350 MG/ML 100 ML (OMNIPAQUE 350) VIAL IV ONE; +LOSA100T57 PO; +MONT10TA32 PO; +NITR0.4T39 SL; +NS 100 ML (IVPB) BAG IV ONE; +PANT40TA52 PO; +RT-ALBUINH INH
[2021-02-14 09:01] LABS: BUN/CREATININE RATIO 17; CREATININE SERUM 0.76 MG/DL (0.60-1.30); GFR ESTIMATED > 60
--- NOTE | 2021-02-14 10:24 | Diagnostic Imaging Report ---
PROCEDURE: CT chest with contrast only. TECHNIQUE: Multiple contiguous axial images were obtained through the chest after administration of intravenous contrast. Auto Exposure Controls were utilized during the CT exam to meet ALARA standards for radiation dose reduction. INDICATION: Worsening shortness of air, COPD. COMPARISON: 12/22/2019. FINDINGS: There is air trapping and centrilobular emphysematous change, most pronounced in the apices, stable and chronic. There is some mild juxta fissural dependent atelectasis, subsegmental in the dependent lingular segment of the left upper lobe. This appears similar to the prior exam. No findings of edema or focal pneumonia. There is no effusion or pneumothorax. The aorta is patent and nonaneurysmal. There is no central pulmonary arterial filling defect or PE identified. There are presumed post surgical changes at the EG junction of fundoplication. The esophagus above that level is nondilated. No axillary, hilar, or mediastinal lymphadenopathy. IMPRESSION: Chronic COPD, unchanged from the prior exam. No pneumonia, effusion, or pneumothorax. No acute finding is evident. Dictated by: Dictated on workstation # [id number]
== END ==
LOC: RAD 09:45
PROVIDERS: ATTEND Nurse Practitioner Family
DX: J44.9 Chronic obstructive pulmonary disease, unspecified (principal)
CPT/HCPCS: 36415; 71260; 82565; 84520

== ENCOUNTER → 2021-05-01 | Outpatient (CLI) | payer OTHER, MEDICARE ==
[~2021-05-01] MED LIST changes: -CATHETER FLUSH 10 ML SYR IV PRN; -HOLD METFORMIN - RECEIVED CONTRAST 20 ML VIAL IV SCH; -IOHEXOL 350 MG/ML 100 ML (OMNIPAQUE 350) VIAL IV ONE; -NS 100 ML (IVPB) BAG IV ONE
== END ==
LOC: LABNPT 20:29
PROVIDERS: ATTEND Internal Medicine
DX: Z01.89 Encounter for other specified special examinations (principal)
CPT/HCPCS: 84145

== ENCOUNTER 2021-06-01 05:30 | Outpatient (RCR) | payer MEDICARE ==
[~2021-06-01] VITALS: Ht 160 cm; Wt 92.5 kg
== END 2021-06-01 11:12 | disposition home or self-care (01) ==
LOC: PREOP 05:30
PROVIDERS: ATTEND Surgery
DX: Z01.812 Encounter for preprocedural laboratory examination (principal); Z12.11 Encounter for screening for malignant neoplasm of colon; K21.9 Gastro-esophageal reflux disease without esophagitis; Z20.822 Contact with and (suspected) exposure to COVID-19
CPT/HCPCS: 87635

== ENCOUNTER → 2021-06-01 | Outpatient (CLI) | payer MEDICARE ==
[~2021-06-01] MED LIST changes: +ACHD5005 PO; +CETI10CA PO; +IPRA3AMP31 IH
== END ==
LOC: LABNPT 07:17
PROVIDERS: ATTEND Surgery
DX: Z53.9 Procedure and treatment not carried out, unspecified reason (principal)

== ENCOUNTER 2021-06-05 09:01 | Day surgery (SDC) | payer MEDICARE ==
[~2021-06-05] VITALS: Ht 160 cm; Wt 92.0 kg
[~2021-06-05 09:01] MED LIST changes: +LACTATED RINGERS 1,000 ML IV STA
[2021-06-05] MEDS ORDERED: HURRICAINE EXT TUBE (BENZOCAINE) XX PRN (09:15)
[2021-06-05 09:36] VITALS: BP 114/89
--- NOTE | 2021-06-05 10:06 | Progress Note-Pre Operative ---
Pre-Operative Progress Note H&P Reviewed The H&P was reviewed, patient examined and no changes noted. Time Seen by Provider: 10:05 Date H&P Reviewed: Jun 05, 2021 Time H&P Reviewed: 10:05 Pre-Operative Diagnosis: Dysphagia, Dysphonia, Screening Colon MARJ SALEH DO Jun 05, 2021 10:06
[2021-06-05] MEDS ORDERED: MIDAZOLAM 2 MG/2 ML (VERSED) VIAL ONE (10:39)
[2021-06-05] MEDS ORDERED: PROPOFOL INJECTION 50 ML IV ONE (10:40)
[2021-06-05 11:20] VITALS: BP 168/98
[2021-06-05 11:25] VITALS: BP 162/93
--- NOTE | 2021-06-05 11:26 | Progress Note-Post Operative ---
Post-Operative Progess Note Surgeon (s)/Nurseryperson (s) Surgeon MARJ SALEH DO Nurseryperson: MAKENNA Gautam Pre-Operative Diagnosis Dysphagia, Dysphonia, Screening Colon Post-Operative Diagnosis Gastritis - mod to severe Hiatal hernia - lg sliding Esophagitis colon polyps Diverticula int hemorrhoids Procedure & Operative Findings Date of Procedure 06/05/21 Procedure Performed/Findings EGD with bx Colon with snare polypectomy PROCEDURE NOTE: After informed consent was obtained, the patient was brought to the endoscopy suite, placed in bed in left lateral decubitus position. She was administered IV sedation by the LEAD APPLICATIONS DEVELOPER who then monitored vitals the entire time, heart rate, blood pressure and pulse ox and the scope was inserted down the mouth through the esophagus into the stomach. On the way down, noted some mild esophagitis, took a picture, pushed into the stomach, pushed past the antrum into the duodenum. Duodenum looked good. Pulled back and did a biopsy of antrum; noted to have moderate to severe gastritis, then retroflexed the scope, saw a large sliding hiatal hernia, took a picture of this and then pulled the scope into the GE junction, took another picture of the hiatal hernia and then did a biopsy of the GE junction. Pushed the scope back into the stomach, suctioned all the air out of the stomach. At this point pulled the scope up the esophagus and out the mouth. Switched camera, switched gloves, went down below, started the colonoscopy. Pushed all the way into about 150 cm to get all the way to cecum; on the way in noted some diverticula and took a picture. In the cecum took a picture of the appendiceal orifice, noted the ileocecal valve and then slowly withdrew the scope, insufflating to look circumferentially at the fay looking in the cecum, up the ascending colon to the hepatic flexure, then down the transverse colon. In the transverse colon I found 4 small flat polyps and did snare polypectomy to remove them. Then continued to the splenic flexure, into the descending colon, down into the sigmoid and finally into the rectum, retroflexed in the rectal vault, saw some minimal internal hemorrhoids and took a picture of this. The patient tolerated the procedure and she recovered in the endoscopy suite. Anesthesia Type IV sedation by LEAD APPLICATIONS DEVELOPER Estimated Blood Loss Estimated blood loss (mL): scant Specimens/Packing Specimens Removed antral bx body of stomach bx GE jxn bx transverse colon polyp x 4 MARJ SALEH DO Jun 05, 2021 11:26
--- NOTE | 2021-06-05 11:27 | Endoscopy Discharge Instruct ---
Endo Procedure/Findings Findings 1.: Hiatal Hernia, Gastritis 2.: Polyp 3.: Diverticulosis 4.: Internal Hemorrhoids Discharge Instructions - Activity: You might feel a little sleepy until tomorrow. This is due to the medicine you received to relax you. Until tomorrow, you should: NOT drive a car, operate machinery or power tools. NOT drink any alcoholic beverages. NOT make any important decisions or sign importortant papers. Do not return to work until tomorrow, unless otherwise instructed. Resume previous activities tomorrow. Diet: Start by taking liquids. If you tolerate liquids, advance to solid food. 1.: Colonscopy in 5 years 2.: EGD in 1 year Notify Physician - If you experience excessive bleeding, unusual abdominal pain, fever, or chest pain, contact your doctor immediately. MARJ SALEH DO Jun 05, 2021 11:27
[2021-06-05 12:10] VITALS: BP 140/71
--- NOTE | 2021-06-05 12:12 | Anesthesia-General Post-Op ---
MAC Patient Condition Mental Status/LOC: Same as Preop Cardiovascular: Satisfactory Nausea/Vomiting: Absent Respiratory: Satisfactory Pain: Controlled Complications: Absent Post Op Complications Complications None Follow Up Care/Instructions Patient Instructions None needed. Anesthesiology Discharge Order Discharge Order Patient is doing well, no complaints, stable vital signs, no apparent adverse anesthesia problems. No complications reported per nursing. CAITLIN JIM CRNA Jun 05, 2021 12:12
== END 2021-06-05 12:39 | disposition home or self-care (01) ==
LOC: ENDO 09:01
PROVIDERS: ATTEND Surgery
DX: Z12.11 Encounter for screening for malignant neoplasm of colon (principal); K20.90 Esophagitis, unspecified without bleeding; K29.70 Gastritis, unspecified, without bleeding; K22.70 Barrett's esophagus without dysplasia; D12.3 Benign neoplasm of transverse colon; K57.30 Diverticulosis of large intestine without perforation or abscess without bleeding; K31.89 Other diseases of stomach and duodenum; K64.8 Other hemorrhoids; K44.9 Diaphragmatic hernia without obstruction or gangrene; K59.00 Constipation, unspecified; I10 Essential (primary) hypertension; I25.10 Atherosclerotic heart disease of native coronary artery without angina pectoris; J44.9 Chronic obstructive pulmonary disease, unspecified; E03.9 Hypothyroidism, unspecified; E66.9 Obesity, unspecified; F41.9 Anxiety disorder, unspecified; F17.210 Nicotine dependence, cigarettes, uncomplicated; Z79.891 Long term (current) use of opiate analgesic; Z79.899 Other long term (current) drug therapy; Z68.35 Body mass index [BMI] 35.0-35.9, adult; Z99.89 Dependence on other enabling machines and devices; Z83.3 Family history of diabetes mellitus; Z80.1 Family history of malignant neoplasm of trachea, bronchus and lung
CPT/HCPCS: 88305

== ENCOUNTER → 2021-12-05 | Outpatient (CLI) | payer MEDICARE ==
[~2021-12-05] MED LIST changes: +CYCL10TA25 PO; -CYCL10TA9 PO; -LACTATED RINGERS 1,000 ML IV STA; +MONT-40 PO; -MONT10TA32 PO; +RT-ALBUTEROL SULF 2.5 MG/3 ML PRE-MIX VIAL INH ONE
== END ==
LOC: RT 14:03
PROVIDERS: ATTEND Internal Medicine
DX: J44.1 Chronic obstructive pulmonary disease with (acute) exacerbation (principal)
CPT/HCPCS: 94060; 94726; 94729

== ENCOUNTER 2022-01-07 19:57 | Inpatient (IN) | payer MEDICARE ==
[~2022-01-07] VITALS: Ht 160 cm; Wt 89.8 kg
[~2022-01-07 19:57] MED LIST changes: -FLUT9.9S NS; +FLUT9.9S NSEACH; -RT-ALBUTEROL SULF 2.5 MG/3 ML PRE-MIX VIAL INH ONE
[2022-01-07] MEDS ORDERED: RT-ALBUTEROL SULF 2.5 MG/3 ML PRE-MIX VIAL ONE (20:36)
[2022-01-07] MEDS ORDERED: methylPREDNISolone 125 MG (Solu-MEDROL) VIAL ONE (20:36)
[2022-01-07] MEDS ORDERED: RT-ALBUTEROL/IPRATROPIUM 3 ML (DUONEB) VIAL ONE (20:36)
[2022-01-07 20:39] LABS: BASOPHILS % (AUTO) 1 % (0-10); EOSINOPHILS # (AUTO) 0.2 10^3/uL (0.0-0.3); EOSINOPHILS % (AUTO) 3 % (0-10); HEMATOCRIT 45 % (35-52); HEMOGLOBIN 14.4 g/dL (11.5-16.0); LYMPHOCYTES # (AUTO) 1.9 10^3/uL (1.0-4.0); LYMPHOCYTES % (AUTO) 29 % (12-44); MEAN CORPUSCULAR HEMOGLOBIN 31 pg (25-34); MEAN CORPUSCULAR HGB CONC 32 g/dL (32-36); MEAN CORPUSCULAR VOLUME 97 fL (80-99); MEAN PLATELET VOLUME 10.4 fL (9.0-12.2); MONOCYTES # (AUTO) 0.6 10^3/uL (0.0-1.0); MONOCYTES % (AUTO) 10 % (0-12); NEUTROPHILS # (AUTO) 3.7 10^3/uL (1.8-7.8); NEUTROPHILS % (AUTO) 57 % (42-75); PLATELET COUNT 265 10^3/uL (130-400); WHITE BLOOD COUNT 6.4 10^3/uL (4.3-11.0)
[2022-01-07 20:41] LABS: ABG OXYGEN SATURATION 97 % (94-100); ABG PCO2 39 MMHG (35-45); ABG PH 7.42 (7.37-7.43); ABG PO2 75 MMHG (79-93); ABG TCO2 26.5 MMOL/L (21.0-31.0); ALLENS TEST YES-POS; INSPIRED O2 ROOM AIR; PATIENT TEMP 35.9; VENTILATOR NO
[2022-01-07] MEDS ORDERED: RT-ALBUTEROL/IPRATROPIUM 3 ML (DUONEB) VIAL INH ONE (20:45)
[2022-01-07] MEDS ORDERED: methylPREDNISolone 125 MG (Solu-MEDROL) VIAL IVP ONE (20:45)
[2022-01-07] MEDS ORDERED: RT-ALBUTEROL SULF 2.5 MG/3 ML PRE-MIX VIAL INH ONE (20:45)
[2022-01-07 20:50] LABS: INR 0.9 (0.8-1.4); PROTHROMBIN TIME PATIENT 12.5 SEC (12.2-14.7)
[2022-01-07 20:51] LABS: ALBUMIN 4.5 GM/DL (3.2-4.5)
[2022-01-07 20:52] LABS: POTASSIUM 4.2 MMOL/L (3.6-5.0)
--- NOTE | 2022-01-07 20:52 | ED Respiratory ---
General Chief Complaint: Respiratory Problems Stated Complaint: SOB, LOW HEART RATE Source: patient Exam Limitations: no limitations History of Present Illness Date Seen by Provider: Jan 07, 2022 Time Seen by Provider: 20:25 Initial Comments To ER with shortness of breath progressive over the past week. She has a low heart rate occasionally down into the 40s and 50s. She denies fevers or chills. She has had COVID vaccinations. She has some pressure in her chest with any exertion. She had a cardiac catheterization in January 2021 showing mild coronary disease. History of hyperlipidemia, tobacco use, hypertension, COPD. Timing/Duration: constant Severity: moderate Associated Symptoms: cough, shortness of breath, wheezing Allergies and Home Medications Allergies Coded Allergies: aspirin (Unverified Allergy, Severe, EDEMA, 04/07/12) Patient Home Medication List Home Medication List Reviewed: Yes Albuterol Sulfate (Ventolin Hfa) 1 Puff Puff, 2 PUFF INH Q4H, (Reported) Entered as Reported by: TIFFANIE LEVINE on 05/29/21 145 Budesonide/Glycopyr/Formoterol (Breztri Aerosphere Inhaler) 10.7 Gm Hfa.aer.ad, 10.7 GM IH BID, (Reported) Entered as Reported by: TIFFANIE LEVINE on 05/29/21 145 Cetirizine HCl (Zyrtec) 10 Mg Capsule, 10 MG PO DAILY, (Reported) Entered as Reported by: TIFFANIE LEVINE on 05/29/21 145 Cyclobenzaprine HCl (Cyclobenzaprine HCl) 10 Mg Tablet, 10 MG PO TID PRN for MUSCLE SPASMS, (Reported) Entered as Reported by: EMETERIO COHN on 02/07/21818 Fluticasone Propionate (Flonase Allergy Relief) 9.9 Ml [place].susp, 2 SPRAY NS HS, (Reported) Entered as Reported by: EMETERIO COHN on 02/07/21818 Hydrochlorothiazide (Hydrochlorothiazide) 25 Mg Tablet, 25 MG PO DAILY, (Reported) Entered as Reported by: EMETERIO COHN on 02/07/21818 Hydrocodone/Acetaminophen (Hydrocodone-Acetamin 5-325 mg) 1 Each Tablet, 1 TAB PO Q4H PRN for PAIN-MODERATE (5-7), (Reported) Entered as Reported by: TIFFANIE LEVINE on 05/29/21 145 Ipratropium/Albuterol Sulfate (Iprat-Albut 0.5-3(2.5) mg/3 ml) 3 Ml Ampul.neb, 3 ML IH Q4H PRN for SHORTNESS OF BREATH, (Reported) Entered as Reported by: TIFFANIE LEVINE on 05/29/21 145 Losartan Potassium (Losartan Potassium) 100 Mg Tablet, 100 MG PO DAILY, (Reported) Entered as Reported by: EMETERIO COHN on 02/07/21818 Metoprolol Succinate (Metoprolol Succinate) 50 Mg Tab.er.24h, 50 MG PO DAILY, (Reported) Entered as Reported by: OLU BLISS on 08/13/201217 Mirabegron (Myrbetriq) 50 Mg Tab.er.24h, 50 MG PO DAILY, (Reported) Entered as Reported by: OLU BLISS on 08/13/201217 Montelukast Sodium (Montelukast Sodium) 10 Mg Tablet, 10 MG PO DAILY, (Reported) Entered as Reported by: EMETERIO COHN on 02/07/21818 Pantoprazole Sodium (Pantoprazole Sodium) 40 Mg Tablet.dr, 40 MG PO DAILY, (Reported) Entered as Reported by: EMETERIO COHN on 02/07/21818 Prednisone (Prednisone) 10 Mg Tab, MG PO DAILY, (Reported) Entered as Reported by: EMETERIO COHN on 02/07/21818 Review of Systems Review of Systems Constitutional: see HPI EENTM: see HPI Respiratory: see HPI, cough (Chronic unchanged in nature), dyspnea on exertion, short of breath, wheezing Cardiovascular: no symptoms reported Genitourinary: no symptoms reported Musculoskeletal: no symptoms reported Skin: no symptoms reported Psychiatric/Neurological: No Symptoms Reported Hematologic/Lymphatic: No Symptoms Reported Immunological/Allergic: no symptoms reported Past Zenaphl-Ziypsa-Hgkekv Hx Patient Social History Tobacco Use?: Yes Tobacco type used: Cigarettes Smoking Status: Current Everyday Smoker Use of E-Cig and/or Vaping dev: No Substance use?: No Alcohol Use?: No Immunizations Up To Date Tetanus Booster (TDap): Unknown PED Vaccines UTD: Yes First/Initial COVID19 Vaccinat: 2020 Second COVID19 Vaccination Maco: 2020 COVID19 Vaccine Fruit Canner: MODERNCj Seasonal Allergies Seasonal Allergies: No Past Medical History Surgeries: Yes Bladder Surgery, Gallbladder, Hysterectomy, Orthopedic Respiratory: Yes (COPD dependent o2 mostly wears at night 3l) Asthma, COPD, Emphysema Cardiac: Yes Coronary Artery Disease, Hypertension, Palpitations Neurological: Yes (PT STATES HX OF MIGRAINES, NO LONGER A PROBLEM.) TIA Reproductive Disorders: Yes (MISCARRAIGE, HYSTERECTOMY.) Sexually Transmitted Disease: No HIV/AIDS: No Genitourinary: No Gastrointestinal: No Abdominal Hernia Musculoskeletal: Yes (PT STATES ARTHRITIS TO R. SHOULDER, BILAT KNEES ET BACK.) Arthritis Endocrine: Yes (PT QUIT TAKING SYNTHROID IN 1995) Hypothyroidsim Loss of Vision: Bilateral Hearing Impairment: Hard of Hearing Cancer: No Psychosocial: Yes Anxiety Integumentary: No Blood Disorders: No Adverse Reaction/Blood Tranf: No Family Medical History Cardiovascular disease 19 FATHER 19 MOTHER G8 SISTER Completed stroke 19 MOTHER G8 SISTER Diabetes mellitus G8 SISTER G8 SISTER Drug abuse G8 SISTER Hypertension 19 FATHER 19 MOTHER Myocardial infarction 19 FATHER 19 MOTHER Respiratory disorder G8 SISTER No Family History of: Alzheimer's disease Physical Exam Vital Signs - First Documented 01/07/22 20:18 Temp 35.9 Pulse 65 Resp 22 B/P (MAP) 183/107 (132) Pulse Ox 97 O2 Delivery Room Air Capillary Refill : Height: 5'3.00" Weight: 178lbs. 0.0oz. 80.499408sh; 35.93 BMI Method:Estimated General Appearance: WD/WN, no apparent distress, other (Chronically ill, lung sounds are diminished with expiratory wheezing. She speaks in short phrases on arrival but with rest she is able to speak in full sentences. Oxygen saturation on arrival was 97% on room air.) HEENT: PERRL/EOMI Neck: non-tender, full range of motion Respiratory: no respiratory distress, no accessory muscle use Cardiovascular: regular rate, rhythm, no murmur Gastrointestinal: normal bowel sounds, non tender, soft Extremities: normal range of motion, non-tender Neurologic/Psychiatric: alert, normal mood/affect, oriented x 3 Skin: normal color, warm/dry Progress/Results/Core Measures Suspected Sepsis SIRS Temperature: Pulse: Respiratory Rate: Laboratory Tests 01/07/22 20:25: White Blood Count 6.4 Blood Pressure / Mean: Laboratory Tests 01/07/22 20:25: Creatinine 0.76, INR Comment 0.9, Platelet Count 265, Total Bilirubin 0.6 Results/Orders Lab Results Laboratory Tests Test 01/07/22 20:25 01/07/22 20:33 01/07/22 20:45 Range/Units White Blood Count 6.4 4.3-11.0 10^3/uL Red Blood Count 4.61 3.80-5.11 10^6/uL Hemoglobin 14.4 11.5-16.0 g/dL Hematocrit 45 35-52 % Mean Corpuscular Volume 97 80-99 fL Mean Corpuscular Hemoglobin 31 25-34 pg Mean Corpuscular Hemoglobin Concent 32 32-36 g/dL Red Cell Distribution Width 13.6 10.0-14.5 % Platelet Count 265 130-400 10^3/uL Mean Platelet Volume 10.4 9.0-12.2 fL Immature Granulocyte % (Auto) 0 % Neutrophils (%) (Auto) 57 42-75 % Lymphocytes (%) (Auto) 29 12-44 % Monocytes (%) (Auto) 10 0-12 % Eosinophils (%) (Auto) 3 0-10 % Basophils (%) (Auto) 1 0-10 % Neutrophils # (Auto) 3.7 1.8-7.8 10^3/uL Lymphocytes # (Auto) 1.9 1.0-4.0 10^3/uL Monocytes # (Auto) 0.6 0.0-1.0 10^3/uL Eosinophils # (Auto) 0.2 0.0-0.3 10^3/uL Basophils # (Auto) 0.0 0.0-0.1 10^3/uL Immature Granulocyte # (Auto) 0.0 0.0-0.1 10^3/uL Prothrombin Time 12.5 12.2-14.7 SEC INR Comment 0.9 0.8-1.4 Activated Partial Thromboplast Time 31 24-35 SEC Sodium Level 135 135-145 MMOL/L Potassium Level 4.2 3.6-5.0 MMOL/L Chloride Level 101 98-107 MMOL/L Carbon Dioxide Level 21 21-32 MMOL/L Anion Gap 13 5-14 MMOL/L Blood Urea Nitrogen 13 7-18 MG/DL Creatinine 0.76 0.60-1.30 MG/DL Estimat Glomerular Filtration Rate 90 BUN/Creatinine Ratio 17 Glucose Level 91 70-105 MG/DL Calcium Level 9.6 8.5-10.1 MG/DL Corrected Calcium 9.2 8.5-10.1 MG/DL Magnesium Level 2.2 1.6-2.4 MG/DL Total Bilirubin 0.6 0.1-1.0 MG/DL Aspartate Amino Transf (AST/SGOT) 29 5-34 U/L Alanine Aminotransferase (ALT/SGPT) 27 0-55 U/L Alkaline Phosphatase 90 40-136 U/L Myoglobin 47.8 10.0-92.0 NG/ML Troponin I < 0.028 <0.028 NG/ML Total Protein 8.2 6.4-8.2 GM/DL Albumin 4.5 3.2-4.5 GM/DL Blood Gas Puncture Site RIGHT RADIAL Blood Gas Patient Temperature 35.9 Arterial Blood pH 7.42 7.37-7.43 Arterial Blood Partial Pressure CO2 39 35-45 MMHG Arterial Blood Partial Pressure O2 75 L 79-93 MMHG Arterial Blood HCO3 25 23-27 MMOL/L Arterial Blood Total CO2 26.5 21.0-31.0 MMOL/L Arterial Blood Oxygen Saturation 97 94-100 % Arterial Blood Base Excess 1.0 -2.5-2.5 MMOL/L Sebastien Test YES-POS Blood Gas Ventilator Setting NO Blood Gas Inspired Oxygen ROOM AIR Influenza Type A (RT-PCR) Not Detected Not Detecte Influenza Type B (RT-PCR) Not Detected Not Detecte SARS-CoV-2 RNA (RT-PCR) Not Detected Not Detecte My Orders Orders - MARIVEL SANDOVAL AUXILIARY EQUIPMENT OPERATOR Cbc With Automated Diff (01/07/22 20:09) Magnesium (01/07/22 20:09) Chest 1 View, Ap/Pa Only (01/07/22 20:09) Ekg Tracing (01/07/22 20:09) Comprehensive Metabolic Panel (01/07/22 20:09) Myoglobin Serum (01/07/22 20:09) Protime With Inr (01/07/22 20:09) Partial Thromboplastin Time (01/07/22 20:09) O2 (01/07/22 20:09) Monitor-Rhythm Ecg Trace Only (01/07/22 20:09) Lipid Panel (01/08/22 06:00) Ed Iv/Invasive Line Start (01/07/22 20:09) Troponin I Tiffanie (01/07/22 20:09) Arterial Blood Gas (01/07/22 20:33) Albuterol/Ipra Inhalation Soln (Duoneb I (01/07/22 20:36) Albuterol Pre-Mix Nebs (Rt) (Proventil (01/07/22 20:36) Methylprednisolone Sod Succ (Solu-Medrol (01/07/22 20:36) Albuterol Pre-Mix Nebs (Rt) (Proventil (01/07/22 20:45) Albuterol/Ipra Inhalation Soln (Duoneb I (01/07/22 20:45) Svn Small Volume Nebulizer (01/07/22 20:43) Svn Small Volume Nebulizer (01/07/22 20:43) Methylprednisolone Sod Succ (Solu-Medrol (01/07/22 20:45) Covid 19 Inhouse Test (01/07/22 20:48) Influenza A And B By Pcr (01/07/22 20:48) Medications Given in ED Current Medications Medications Dose Ordered Sig/Tirso Route Start Time Stop Time Status Last Admin Dose Admin Albuterol Sulfate 2.5 mg ONCE ONCE INH 01/07/22 20:45 01/07/22 20:46 DC 01/07/22 20:37 2.5 MG Albuterol/ Ipratropium 3 ml ONCE ONCE INH 01/07/22 20:45 01/07/22 20:46 DC 01/07/22 20:37 3 ML Methylprednisolone Sodium Succinate 125 mg ONCE ONCE IVP 01/07/22 20:45 01/07/22 20:46 DC 01/07/22 20:37 125 MG Vital Signs/I&O 01/07/22 20:18 Temp 35.9 Pulse 65 Resp 22 B/P (MAP) 183/107 (132) Pulse Ox 97 O2 Delivery Room Air Capillary Refill : Departure Communication (Admissions) [id number] with Dr. Tellez will admit observation status for some IV steroids, match protocol, Zithromax treating for COPD exacerbation. She is still not requiring oxygen with SPO2 on room air upwards of 95%. She has greater air movement after a breathing treatment. Her troponin is negative she is absent any chest pain, her EKG shows sinus rhythm at [address] segment change Impression Primary Impression: COPD exacerbation Disposition: ADMITTED INPATIENT Condition: Stable Admissions Decision to Admit Reason: Admit from ER (General) Decision to Admit/Date: Jan 07, 2022 Time/Decision to Admit Time: 20:53 Departure-Patient Inst. Referrals: SUZY TELLEZ DO (PCP/Family) Primary Care Physician MARIVEL SANDOVAL APRN Jan 07, 2022 20:52
[2022-01-07 20:53] LABS: CALCIUM 9.6 MG/DL (8.5-10.1)
[2022-01-07 20:54] LABS: TOTAL PROTEIN 8.2 GM/DL (6.4-8.2)
[2022-01-07 20:56] LABS: BILIRUBIN,TOTAL 0.6 MG/DL (0.1-1.0)
[2022-01-07 20:58] LABS: CREATININE SERUM 0.76 MG/DL (0.60-1.30)
[2022-01-07 21:00] LABS: MAGNESIUM 2.2 MG/DL (1.6-2.4)
--- NOTE | 2022-01-07 21:28 | Diagnostic Imaging Report ---
INDICATION: Chest pain. COMPARISON: 08/12/2020. FINDINGS: There is flattening of the diaphragms compatible with air trapping and underlying COPD. There is no pneumonia or effusion. There is no pneumothorax. There are no findings of pulmonary edema. There is no acute osseous abnormality. IMPRESSION: Diaphragmatic flattening suggesting air trapping and COPD. No acute superimposed cardiopulmonary process evident. Dictated by: Dictated on workstation # [id number]
[2022-01-07] MEDS ORDERED: LACTATED RINGERS 1,000 ML IV ONE (22:19)
[2022-01-07] MEDS ORDERED: polyethylene glycoL POWDER 17 GM (MIRALAX) PACK PO PRN (22:30)
[2022-01-07] MEDS ORDERED: MELATONIN 3 MG TABLET PO PRN (22:30)
[2022-01-07] MEDS ORDERED: MILK OF MAGNESIA 400 MG/5 ML 30 ML UDC PO PRN (22:30)
[2022-01-07] MEDS ORDERED: ONDANSETRON 4 MG (ZOFRAN) ORAL DISSOLVE TAB PO PRN (22:30)
[2022-01-07] MEDS ORDERED: BISACODYL 10 MG SUPP (DULCOLAX) PR PRN (22:30)
[2022-01-07] MEDS ORDERED: morphine INJ 4 MG/ML 1 ML (VIAL/SYRINGE) IV PRN (22:30)
[2022-01-07] MEDS ORDERED: LACTULOSE SYRUP 10GM/15ML (ENULOSE) 30ML UDC PO PRN (22:30)
[2022-01-07] MEDS ORDERED: diphenhydrAMINE 25 MG TAB (BENADRYL) PO PRN (22:30)
[2022-01-07] MEDS ORDERED: PATIENT MAY USE OWN MEDS, ALL PO SCH (22:30)
[2022-01-07] MEDS ORDERED: ALPRAZolam 0.25 MG (XANAX) TAB PO PRN (22:30)
[2022-01-07] MEDS ORDERED: CALCIUM CARBONATE 500 MG (TUMS) TAB.CHEW PO PRN (22:30)
[2022-01-07] MEDS ORDERED: ONDANSETRON 4 MG/2 ML (SDV) Z0FRAN IV PRN (22:30)
[2022-01-07] MEDS ORDERED: ANTACID SUSP 30 ML UDC (MYLANTA) PO PRN (22:30)
[2022-01-07] MEDS ORDERED: HYDROcodone/APAP 5 MG/325 MG (LORTAB) TAB PO PRN (22:30)
[2022-01-07] MEDS ORDERED: diphenhydrAMINE 50 MG/ML INJ (BENADRYL) IVP PRN (22:30)
[2022-01-07] MEDS ORDERED: LACTATED RINGERS 1,000 ML IV SCH (22:45)
[2022-01-07] MEDS: ENOXAPARIN 40 MG/0.4 ML (LOVENOX) SYR SC SCH (22:49)
[2022-01-07] MEDS ORDERED: AZITHROMYCIN 250 MG TAB (ZITHROMAX) PO ONE (23:00)
[2022-01-07 23:14] VITALS: BP 183/107
[2022-01-07 23:24] VITALS: BP 146/72
[2022-01-07] MEDS ORDERED: RT-ALBUTEROL HFA 8.5 GM INHALER IH PRN (23:30)
[2022-01-08 04:20] VITALS: BP 112/63
[2022-01-08 06:27] LABS: BASOPHILS % (AUTO) 0 % (0-10); EOSINOPHILS % (AUTO) 0 % (0-10); HEMATOCRIT 38 % (35-52); HEMOGLOBIN 12.4 g/dL (11.5-16.0); LYMPHOCYTES # (AUTO) 0.6 10^3/uL (1.0-4.0); LYMPHOCYTES % (AUTO) 15 % (12-44); MEAN CORPUSCULAR HEMOGLOBIN 31 pg (25-34); MEAN CORPUSCULAR HGB CONC 33 g/dL (32-36); MEAN CORPUSCULAR VOLUME 94 fL (80-99); MEAN PLATELET VOLUME 11.2 fL (9.0-12.2); MONOCYTES # (AUTO) 0.1 10^3/uL (0.0-1.0); MONOCYTES % (AUTO) 2 % (0-12); NEUTROPHILS # (AUTO) 3.1 10^3/uL (1.8-7.8); NEUTROPHILS % (AUTO) 83 % (42-75); PLATELET COUNT 216 10^3/uL (130-400); WHITE BLOOD COUNT 3.8 10^3/uL (4.3-11.0)
[2022-01-08] MEDS: methylPREDNISolone 125 MG (Solu-MEDROL) VIAL IV SCH ×3 (06:39→20:52)
[2022-01-08 06:45] LABS: CHLORIDE 104 MMOL/L (98-107); POTASSIUM 3.8 MMOL/L (3.6-5.0); SODIUM 136 MMOL/L (135-145)
[2022-01-08 06:46] LABS: ALBUMIN 3.5 GM/DL (3.2-4.5)
[2022-01-08 06:47] LABS: CALCIUM 8.8 MG/DL (8.5-10.1); TRIGLYCERIDES 53 MG/DL (<150); VLDL CHOLESTEROL 11 MG/DL (5-40)
[2022-01-08 06:48] LABS: GLUCOSE 205 MG/DL (70-105); TOTAL PROTEIN 6.5 GM/DL (6.4-8.2)
[2022-01-08 06:49] LABS: CARBON DIOXIDE 23 MMOL/L (21-32)
[2022-01-08 06:50] LABS: BILIRUBIN,TOTAL 0.3 MG/DL (0.1-1.0)
[2022-01-08 06:52] LABS: ALKALINE PHOSPHATASE 72 U/L (40-136); GFR ESTIMATED 99
[2022-01-08 06:53] LABS: BUN/CREATININE RATIO 21; CHOLESTEROL 182 MG/DL (< 200)
[2022-01-08 06:54] LABS: HDL CHOLESTEROL 71 MG/DL (40-60)
[2022-01-08 06:55] LABS: ALANINE AMINOTRANSFERASE 22 U/L (0-55)
[2022-01-08] MEDS: RT-ALBUTEROL HFA 8.5 GM INHALER IH SCH ×2 (07:15→12:09)
[2022-01-08 08:00] VITALS: BP 138/66
[2022-01-08] MEDS: SENNOSIDES 8.6 MG (SENOKOT) TAB PO SCH ×2 (09:00→20:53)
[2022-01-08] MEDS: DOCUSATE SODIUM 100 MG (COLACE) CAP PO SCH ×2 (09:00→20:52)
--- NOTE | 2022-01-08 10:30 | Consultation-Cardiology ---
HPI-Cardiology Cardiology Consultation Date of Consultation 01/08/22 Date of Admission Time Seen by Provider: 10:22 Indication: Chest pain, dyspnea. HPI Patient is a 61 y.o. female with history of nonobstructive CAD, HTN, COPD. Presented to the ER with complaints of increased dyspea over the past week. Reports intermittent chest pain. Complaining of episodes of bradycardia with HR in the 40s at home with associated dizziness. Denies any syncope. Denies peripheral edema. Home Medications & Allergies Allergies: Coded Allergies: aspirin (Unverified Allergy, Severe, EDEMA, 04/07/12) Home Medication List Reviewed: Yes CLZ-Lgggps-Iouxlg Hx Patient Social History Smoking Status: Current Everyday Smoker Type Used: Cigarettes 2nd Hand Smoke Exposure: Yes Recent Hopitalizations: Yes Have you traveled recently?: No Alcohol Use?: Yes Immunizations Up To Date Tetanus Booster (TDap): Unknown Date of Pneumonia Vaccine: Feb 03, 2013 Past Medical History CHF, COPD, HTN Family Medical History Family History: Cardiovascular disease 19 FATHER 19 MOTHER G8 SISTER Completed stroke 19 MOTHER G8 SISTER Diabetes mellitus G8 SISTER G8 SISTER Drug abuse G8 SISTER Hypertension 19 FATHER 19 MOTHER Myocardial infarction 19 FATHER 19 MOTHER Respiratory disorder G8 SISTER No Family History of: Alzheimer's disease Review of Systems-General Review of Systems Constitutional: see HPI; No dizziness, No fever EENTM: see HPI, no symptoms reported Respiratory: see HPI, cough (Chronic unchanged in nature), dyspnea on exertion, short of breath, wheezing Cardiovascular: see HPI, chest pain; No edema, No Hx of Intervention, No syncope Genitourinary: no symptoms reported Musculoskeletal: no symptoms reported Skin: no symptoms reported Psychiatric/Neurological: No Symptoms Reported Reviewed Test Results Reviewed Test Results Lab Laboratory Tests 01/07/22 20:25: White Blood Count 6.4, Red Blood Count 4.61, Hemoglobin 14.4, Hematocrit 45, Mean Corpuscular Volume 97, Mean Corpuscular Hemoglobin 31, Mean Corpuscular Hemoglobin Concent 32, Red Cell Distribution Width 13.6, Platelet Count 265, Mean Platelet Volume 10.4, Immature Granulocyte % (Auto) 0, Neutrophils (%) (Auto) 57, Lymphocytes (%) (Auto) 29, Monocytes (%) (Auto) 10, Eosinophils (%) (Auto) 3, Basophils (%) (Auto) 1, Neutrophils # (Auto) 3.7, Lymphocytes # (Auto) 1.9, Monocytes # (Auto) 0.6, Eosinophils # (Auto) 0.2, Basophils # (Auto) 0.0, Immature Granulocyte # (Auto) 0.0, Prothrombin Time 12.5, INR Comment 0.9, Activated Partial Thromboplast Time 31, Sodium Level 135, Potassium Level 4.2, Chloride Level 101, Carbon Dioxide Level 21, Anion Gap 13, Blood Urea Nitrogen 13, Creatinine 0.76, Estimat Glomerular Filtration Rate 90, BUN/Creatinine Ratio 17, Glucose Level 91, Calcium Level 9.6, Corrected Calcium 9.2, Magnesium Level 2.2, Total Bilirubin 0.6, Aspartate Amino Transf (AST/SGOT) 29, Alanine Aminotransferase (ALT/SGPT) 27, Alkaline Phosphatase 90, Myoglobin 47.8, Troponin I < 0.028, Total Protein 8.2, Albumin 4.5 01/07/22 20:33: Blood Gas Puncture Site RIGHT RADIAL, Blood Gas Patient Temperature 35.9, Arterial Blood pH 7.42, Arterial Blood Partial Pressure CO2 39, Arterial Blood Partial Pressure O2 75L, Arterial Blood HCO3 25, Arterial Blood Total CO2 26.5, Arterial Blood Oxygen Saturation 97, Arterial Blood Base Excess 1.0, Sebastien Test YES-POS, Blood Gas Ventilator Setting NO, Blood Gas Inspired Oxygen ROOM AIR 01/07/22 20:45: Influenza Type A (RT-PCR) Not Detected, Influenza Type B (RT-PCR) Not Detected, SARS-CoV-2 RNA (RT-PCR) Not Detected 01/08/22 05:52: White Blood Count 3.8L, Red Blood Count 4.00, Hemoglobin 12.4, Hematocrit 38, Mean Corpuscular Volume 94, Mean Corpuscular Hemoglobin 31, Mean Corpuscular Hemoglobin Concent 33, Red Cell Distribution Width 13.1, Platelet Count 216, Mean Platelet Volume 11.2, Immature Granulocyte % (Auto) 1, Neutrophils (%) (Auto) 83H, Lymphocytes (%) (Auto) 15, Monocytes (%) (Auto) 2, Eosinophils (%) (Auto) 0, Basophils (%) (Auto) 0, Neutrophils # (Auto) 3.1, Lymphocytes # (Auto) 0.6L, Monocytes # (Auto) 0.1, Eosinophils # (Auto) 0.0, Basophils # (Auto) 0.0, Immature Granulocyte # (Auto) 0.0, Sodium Level 136, Potassium Level 3.8, Chloride Level 104, Carbon Dioxide Level 23, Anion Gap 9, Blood Urea Nitrogen 15, Creatinine 0.70, Estimat Glomerular Filtration Rate 99, BUN/Creatinine Ratio 21, Glucose Level 205H, Calcium Level 8.8, Corrected Calcium 9.2, Total Bilirubin 0.3, Aspartate Amino Transf (AST/SGOT) 20, Alanine Aminotransferase (ALT/SGPT) 22, Alkaline Phosphatase 72, Troponin I < 0.028, Total Protein 6.5, Albumin 3.5, Triglycerides Level 53, Cholesterol Level 182, LDL Cholesterol Direct 99, VLDL Cholesterol 11, HDL Cholesterol 71H ECG Impression ECG Initial ECG Rhythm: Normal Sinus Physical Exam Physical Exam Vital Signs Vital Signs - First Documented 01/07/22 01/07/22 01/07/22 20:18 23:14 23:24 Temp 35.9 Pulse 65 Resp 22 B/P (MAP) 183/107 (132) Pulse Ox 97 O2 Delivery Room Air O2 Flow Rate 3.50 FiO2 21 Capillary Refill : Less Than 3 Seconds Height, Weight, BMI Height: 5'3.00" Weight: 178lbs. 0.0oz. 80.093700ty; 35.07 BMI Method:Estimated General Appearance: No Apparent Distress, WD/WN HEENT: PERRL/EOMI Neck: Full Range of Motion, Non Tender, Supple; No Carotid Bruit Respiratory: Chest Non Tender, No Accessory Muscle Use, No Respiratory Distress, Decreased Breath Sounds Cardiovascular: Regular Rate, Rhythm, No Edema, No JVD, No Murmur, Bradycardia Gastrointestinal: Non Tender, Soft Extremity: Non Tender, No Calf Tenderness Neurologic/Psychiatric: Alert, Oriented x3 A/P-Cardiology Admission Diagnosis Dyspnea AE COPD CP HTN Assessment/Plan Dyspnea, AE COPD, management per medical services. Planning to repeat 2D Echo Recurrent palpitation, recurrent chest pain, reports improvement. Will continue to monitor. Nonobstructive coronary artery disease per cardiac catheterization in June 2014, repeat cardiac catheterization was done on August 13, [address] Machado due to recurrent chest pain showing normal coronaries. Complete heart cath done 02/07/21 showing mild nonobstructive disease, PA 33/14 with a mean of 23mmHg. Bradycardia, patient reports episodes of HR in the 40s and 50s at home with dizziness and lightheadedness. Will hold home Toprol XL and continue to monitor telemetry. History of congestive heart failure most recent EF 60 percent. 2-D echocardiogram done April 2019 revealed LVH and diastolic dysfunction. Continue to monitor. I will reevaluate 2D Echo Hypertension, will hold Toprol XL and restart other home medications, continue to monitor. Hyperlipidemia, monitored as outpatient. Generalized fatigue Lower extremity cramps and pain, on and off. ABIs done April 2019 within normal limits Nonobstructive carotid artery stenosis per carotid duplex done April 2019 Tobaccoism-educated on importance of smoking cessation Obesity, BMI is 34, educated and instructed on weight loss. Anxiety Thank you for allowing us to participate in the management of Ms. Harmon. This is Fifi Madison PA-C, as a scribe for Dr. Lockwood. Patient was seen and evaluated with Fifi, I interviewed the patient and examined her, discussed the management plan with Fifi, I agree with the scribed note Patient reporting episode of dyspnea, probably exacerbation of COPD Episodes of bradycardia, probably having underlying sinus node dysfunction exacerbated by the use of beta-blockers. I will discontinue Toprol Planning to evaluate a Holter monitor as an outpatient Monitor blood pressure and repeat 2D echo FIFI LOPEZ Jan 08, 2022 10:30 PAYTON LOCKWOOD MD Jan 08, 2022 12:05
[2022-01-08] MEDS ORDERED: FLUT1BLS INH (11:45)
[2022-01-08] MEDS ORDERED: TERB250T88 PO (11:45)
[2022-01-08] MEDS ORDERED: ACET-2267 PO (12:00)
[2022-01-08] MEDS: ACETAMINOPHEN 325 MG TABLET PO PRN ×2 (12:15→18:48)
[2022-01-08] MEDS: LORATADINE (CLARITIN) 10 MG TAB PO SCH (12:15)
[2022-01-08] MEDS: RT-BUDESONIDE NEBS 0.5 MG/2ML (PULMICORT) AMP INH SCH ×2 (12:16→21:19)
[2022-01-08] MEDS: RT-ALBUTEROL/IPRATROPIUM 3 ML (DUONEB) VIAL INH SCH ×4 (12:16→21:19)
[2022-01-08 12:32] VITALS: BP 132/64
--- NOTE | 2022-01-08 13:24 | History & Physical ---
ELROY BARRIENTOS 01/08/22 1324: History of Present Illness History of Present Illness Reason for visit/HPI CC: Bijal underwood a 61yo F that presented to the [facility] ER yesterday evening with a chief complaint of SOB and cough for the past week. She also has had low HR for the past few weeks in the 40-50 range. Denies having any chest pain. Troponins were not elevated and EKG showed sinus rhythm. Patient had oxygen saturations in the 95 range when on room air in the ER. IV steroids and azithromycin were started. Patient was admitted for COPD exacerbation. HPI: PMH includes CAD, hyperlipidemia, hypertension, COPD, TIA, hypothyroidism, and at home oxygen of 3L which she wears at night and as needed. Is a current tobacco user with 11 pack years. Patient does not report being in any pain. She says she is comfortable except when she gets up to go to the restroom and has to take her oxygen off. She is currently on 3L of oxygen via nasal cannula. She says it takes 20 minutes for her to recover from going to the bathroom and that her oxygen saturations will be in the low 90s. Patient states that her son moved in with her and he has 10 dogs which she believes is what exacerbated her COPD symptoms. Date of Admission Jan 07, 2022 at 21:14 Date Seen by a Provider: Jan 08, 2022 Time Seen by a Provider: 10:30 I consulted on this patient on 01/08/22 13:13 Attending Physician Siria Tellez DO Admitting Physician Siria Tellez DO Consult Allergies and Home Medications Allergies Coded Allergies: aspirin (Unverified Allergy, Severe, EDEMA, 04/07/12) Patient Home Medication List Acetaminophen (Tylenol Extra Strength) 500 Mg Tablet, 1,000 MG PO Q6H PRN for PAIN-MILD (1-4), (Reported) Entered as Reported by: EMETERIO COHN on 01/08/22 1200 Last Action: Continued Albuterol Sulfate (Ventolin Hfa) 1 Puff Puff, 2 PUFF INH Q4H PRN for SHORTNESS OF BREATH, (Reported) Entered as Reported by: TIFFANIE LEVINE on 05/29/21 1453 Last Action: Held Cetirizine HCl (Zyrtec) 10 Mg Capsule, 10 MG PO DAILY, (Reported) Entered as Reported by: TIFFANIE LEVINE on 05/29/211452 Last Action: Converted Cyclobenzaprine HCl (Cyclobenzaprine HCl) 10 Mg Tablet, 10 MG PO HS PRN for MUSCLE SPASMS, (Reported) Entered as Reported by: EMETERIO COHN on 02/07/21818 Last Action: Continued Fluticasone Propionate (Flonase Allergy Relief) 9.9 Ml [place].susp, 2 SPRAY NSEACH HS PRN for CONGESTION, (Reported) Entered as Reported by: EMETERIO COHN on 02/07/21818 Last Action: Converted Fluticasone/Vilanterol (Breo Ellipta 200-25 Mcg INH) 1 Each Blst.w.dev, 1 PUFF INH DAILY, (Reported) Entered as Reported by: EMETERIO COHN on 01/08/22 1145 Last Action: Continued Hydrochlorothiazide (Hydrochlorothiazide) 25 Mg Tablet, 25 MG PO DAILY, (Reported) Entered as Reported by: EMETERIO COHN on 02/07/21818 Last Action: Continued Ipratropium/Albuterol Sulfate (Iprat-Albut 0.5-3(2.5) mg/3 ml) 3 Ml Ampul.neb, 3 ML IH Q4H PRN for SHORTNESS OF BREATH, (Reported) Entered as Reported by: TIFFANIE LEVINE on 05/29/211452 Last Action: Held Losartan Potassium (Losartan Potassium) 100 Mg Tablet, 100 MG PO DAILY, (Reported) Entered as Reported by: EMETERIO COHN on 02/07/21818 Last Action: Continued Metoprolol Succinate (Metoprolol Succinate) 50 Mg Tab.er.24h, 50 MG PO DAILY, (Reported) Entered as Reported by: OLU BLISS on 08/13/20 1218 Last Action: Continued Montelukast Sodium (Montelukast Sodium) 10 Mg Tablet, 10 MG PO HS PRN for ASTHMA SYMOTINS, (Reported) Entered as Reported by: EMETERIO COHN on 02/07/21818 Last Action: Continued Pantoprazole Sodium (Pantoprazole Sodium) 40 Mg Tablet.dr, 40 MG PO BID, (Reported) Entered as Reported by: EMETERIO COHN on 02/07/21818 Last Action: Continued Terbinafine HCl (Terbinafine HCl) 250 Mg Tablet, 250 MG PO DAILY, (Reported) Entered as Reported by: EMETERIO COHN on 01/08/22 1145 Last Action: Converted Discontinued Medications Budesonide/Glycopyr/Formoterol (Breztri Aerosphere Inhaler) 10.7 Gm Hfa.aer.ad, 10.7 GM IH BID, (Reported) Discontinued Reason: No Longer Taking Entered as Reported by: TIFFANIE LEVINE on 05/29/21 607 Last Action: Discontinued Hydrocodone/Acetaminophen (Hydrocodone-Acetamin 5-325 mg) 1 Each Tablet, 1 TAB P O Q4H PRN for PAIN-MODERATE (5-7), (Reported) Discontinued Reason: No Longer Taking Entered as Reported by: TIFFANIE LEVINE on 05/29/211452 Last Action: Discontinued Mirabegron (Myrbetriq) 50 Mg Tab.er.24h, 50 MG PO DAILY, (Reported) Discontinued Reason: No Longer Taking Entered as Reported by: OLU BLISS on 08/13/20 1218 Last Action: Discontinued Prednisone (Prednisone) 10 Mg Tab, MG PO DAILY, (Reported) Discontinued Reason: No Longer Taking Entered as Reported by: EMETERIO COHN on 02/07/21 0819 Last Action: Discontinued Past Bicxnye-Kzznnb-Spaoqq Hx Patient Social History Employed/Student: employed Tobacco Use?: Yes Tobacco type used: Cigarettes (11 pack years) Smoking Status: Current Everyday Smoker Smokeless type used: Sticks Smokeless Tobacco Frequency: Never a User Use of E-Cig and/or Vaping dev: No Substance use?: No Alcohol Use?: Yes Alcohol type: Hard Liquor Alcohol Frequency: Once in a while Pt feels they are or have been: No Immunizations Up To Date First/Initial COVID19 Vaccinat: 06/18/2021 Second COVID19 Vaccination Maco: 07/16/2021 Tetanus Booster (TDap): Unknown PED Vaccines UTD: Yes Date of Pneumonia Vaccine: Feb 03, 2013 Seasonal Allergies Seasonal Allergies: No Current Status status: No status: No Advance Directives: No Communicates: Verbally Primary Language: Armenian Preferred Spoken Language: Armenian Is interpretation needed?: No Sensory deficits: Vision impairment Implanted or Applied Medical D: None Past Medical History Surgeries: Bladder Surgery, Gallbladder, Hysterectomy, Orthopedic Asthma, COPD, Emphysema Coronary Artery Disease, Hypertension, Palpitations TIA Sexually Transmitted Disease: No HIV/AIDS: No Abdominal Hernia Arthritis Hypothyroidsim Loss of Vision: Bilateral Hearing Impairment: Hard of Hearing Anxiety Blood Disorders: No Adverse Reaction/Blood Tranf: No Family Medical History Cardiovascular disease 19 FATHER 19 MOTHER G8 SISTER Completed stroke 19 MOTHER G8 SISTER Diabetes mellitus G8 SISTER G8 SISTER Drug abuse G8 SISTER Hypertension 19 FATHER 19 MOTHER Myocardial infarction 19 FATHER 19 MOTHER Respiratory disorder G8 SISTER No Family History of: Alzheimer's disease Review of Systems Constitutional: No chills, No dizziness, No fever; weakness (Feels weak when trying to get up and use the restroom) EENTM: no symptoms reported Respiratory: cough, dyspnea on exertion; No phlegm; short of breath Cardiovascular: No chest pain, No palpitations Gastrointestinal: No abdominal pain, No constipation, No diarrhea Genitourinary: No dysuria : No Musculoskeletal: no symptoms reported Skin: no symptoms reported Psychiatric/Neurological: Denies Headache Physical Exam Vital Signs Vital Signs - First Documented 01/07/22 01/07/22 01/07/22 20:18 23:14 23:24 Temp 35.9 Pulse 65 Resp 22 B/P (MAP) 183/107 (132) Pulse Ox 97 O2 Delivery Room Air O2 Flow Rate 3.50 FiO2 21 Capillary Refill : Less Than 3 Seconds Height, Weight, BMI Height: 5'3.00" Weight: 178lbs. 0.0oz. 80.573851ht; 35.07 BMI Method:Estimated General Appearance: No Apparent Distress, WD/WN, Obese Eyes: Bilateral Eye Normal Inspection HEENT: PERRL/EOMI Neck: Full Range of Motion, Normal Inspection, Non Tender, Supple Respiratory: Chest Non Tender, Normal Breath Sounds, No Accessory Muscle Use, No Respiratory Distress, Wheezing (Expiratory wheezes) Cardiovascular: No Edema, No Gallop, No JVD, No Murmur, Normal Peripheral Pulses, Bradycardia Gastrointestinal: Normal Bowel Sounds, No Organomegaly, No Pulsatile Mass, Non Tender, Soft Extremity: Normal Capillary Refill, Normal Inspection, Normal Range of Motion, Non Tender, No Pedal Edema Neurologic/Psychiatric: Alert, Oriented x3, Normal Mood/Affect Skin: Normal Color, Warm/Dry Assessment/Plan Assessment and Plan Assessment: COPD exacerbation Bradycardia CAD Hyperlipidemia Hypertension Hypothyroidism Previous TIA GERD DVT prophylaxis Plan: COPD exacerbation - patient started on IV methylprenisolone in the ER - COVID and influenza were ruled out as causes - oral azithromycin started today Bradycardia - cardiology is being consulted CAD - resume home meds Hyperlipidemia - resume home meds Hypertension - home meds withheld due to bradycardia Hypothyroidism - resume home meds GERD - resume home meds DVT prophylaxis - Enoxaparin started Problems: (1) CAD (coronary artery disease) (2) Hyperlipidemia (3) Hypertension (4) TIA (transient ischemic attack) (5) Hypothyroidism (6) GERD (gastroesophageal reflux disease) (7) COPD exacerbation Status: Acute (8) Bradycardia (9) DVT prophylaxis SIRIA TELLEZ 01/09/22 0540: History of Present Illness History of Present Illness Reason for visit/HPI CC: SOB with bradycardia HPI: 61 yr old WF admitted for observation due to SOB due to exacerbation of COPD and bradycardia. Her heart rate has been as low as 48. Dr. Lockwood has been consulted. I will hep lock her IV fluid and we will maintain IV steroids. Her home medication will be evaluated. Allergies and Home Medications Allergies Coded Allergies: aspirin (Unverified Allergy, Severe, EDEMA, 04/07/12) Patient Home Medication List Home Medication List Reviewed: Yes Acetaminophen (Tylenol Extra Strength) 500 Mg Tablet, 1,000 MG PO Q6H PRN for PAIN-MILD (1-4), (Reported) Entered as Reported by: EMETERIO COHN on 01/08/22 1200 Last Action: Continued Albuterol Sulfate (Ventolin Hfa) 1 Puff Puff, 2 PUFF INH Q4H PRN for SHORTNESS OF BREATH, (Reported) Entered as Reported by: TIFFANIE LEVINE on 05/29/21 851 Last Action: Held Cetirizine HCl (Zyrtec) 10 Mg Capsule, 10 MG PO DAILY, (Reported) Entered as Reported by: TIFFANIE LEVINE on 05/29/211452 Last Action: Converted Cyclobenzaprine HCl (Cyclobenzaprine HCl) 10 Mg Tablet, 10 MG PO HS PRN for MUSCLE SPASMS, (Reported) Entered as Reported by: EMETERIO COHN on 02/07/21 0819 Last Action: Continued Fluticasone Propionate (Flonase Allergy Relief) 9.9 Ml [place].susp, 2 SPRAY NSEACH HS PRN for CONGESTION, (Reported) Entered as Reported by: EMETERIO COHN on 02/07/21818 Last Action: Converted Fluticasone/Vilanterol (Breo Ellipta 200-25 Mcg INH) 1 Each Blst.w.dev, 1 PUFF INH DAILY, (Reported) Entered as Reported by: EMETERIO COHN on 01/08/22 114 Last Action: Continued Hydrochlorothiazide (Hydrochlorothiazide) 25 Mg Tablet, 25 MG PO DAILY, (Reported) Entered as Reported by: EMETERIO COHN on 02/07/21818 Last Action: Continued Ipratropium/Albuterol Sulfate (Iprat-Albut 0.5-3(2.5) mg/3 ml) 3 Ml Ampul.neb, 3 ML IH Q4H PRN for SHORTNESS OF BREATH, (Reported) Entered as Reported by: TIFFANIE LEVINE on 05/29/21 7962 Last Action: Held Losartan Potassium (Losartan Potassium) 100 Mg Tablet, 100 MG PO DAILY, (Reported) Entered as Reported by: EMETERIO COHN on 02/07/21818 Last Action: Continued Metoprolol Succinate (Metoprolol Succinate) 50 Mg Tab.er.24h, 50 MG PO DAILY, (Reported) Entered as Reported by: OLU BLISS on 08/13/20 1218 Last Action: Continued Montelukast Sodium (Montelukast Sodium) 10 Mg Tablet, 10 MG PO HS PRN for ASTHMA SYMOTINS, (Reported) Entered as Reported by: EMETERIO COHN on 02/07/21818 Last Action: Continued Pantoprazole Sodium (Pantoprazole Sodium) 40 Mg Tablet.dr, 40 MG PO BID, (Reported) Entered as Reported by: EMETERIO COHN on 02/07/21818 Last Action: Continued Terbinafine HCl (Terbinafine HCl) 250 Mg Tablet, 250 MG PO DAILY, (Reported) Entered as Reported by: EMETERIO COHN on 01/08/221144 Last Action: Converted Discontinued Medications Budesonide/Glycopyr/Formoterol (Breztri Aerosphere Inhaler) 10.7 Gm Hfa.aer.ad, 10.7 GM IH BID, (Reported) Discontinued Reason: No Longer Taking Entered as Reported by: TIFFANIE LEVINE on 05/29/211452 Last Action: Discontinued Hydrocodone/Acetaminophen (Hydrocodone-Acetamin 5-325 mg) 1 Each Tablet, 1 TAB PO Q4H PRN for PAIN-MODERATE (5-7), (Reported) Discontinued Reason: No Longer Taking Entered as Reported by: TIFFANIE LEVINE on 05/29/21 884 Last Action: Discontinued Mirabegron (Myrbetriq) 50 Mg Tab.er.24h, 50 MG PO DAILY, (Reported) Discontinued Reason: No Longer Taking Entered as Reported by: OLU BLISS on 08/13/20 1218 Last Action: Discontinued Prednisone (Prednisone) 10 Mg Tab, MG PO DAILY, (Reported) Discontinued Reason: No Longer Taking Entered as Reported by: EMETERIO COHN on 02/07/21 0819 Last Action: Discontinued Past Winpjfh-Vdkydu-Xmlnva Hx Patient Social History Marrital Status: Employed/Student: employed Tobacco Use?: Yes Tobacco type used: Cigarettes (11 pack years) Smoking Status: Current Everyday Smoker Alcohol Use?: Yes Alcohol Frequency: Once in a while Past Medical History Surgeries: Orthopedic COPD Coronary Artery Disease, High Cholesterol, Hypertension Chronic Back Pain Family Medical History Cardiovascular disease 19 FATHER 19 MOTHER G8 SISTER Completed stroke 19 MOTHER G8 SISTER Diabetes mellitus G8 SISTER G8 SISTER Drug abuse G8 SISTER Hypertension 19 FATHER 19 MOTHER Myocardial infarction 19 FATHER 19 MOTHER Respiratory disorder G8 SISTER No Family History of: Alzheimer's disease Review of Systems Constitutional: see HPI, weakness (Feels weak when trying to get up and use the restroom) EENTM: no symptoms reported Respiratory: dyspnea on exertion Cardiovascular: palpitations Gastrointestinal: no symptoms reported Genitourinary: no symptoms reported Musculoskeletal: no symptoms reported Skin: no symptoms reported Psychiatric/Neurological: No Symptoms Reported Physical Exam General Appearance: No Apparent Distress, WD/WN, Chronically ill, Obese Eyes: Bilateral Eye Normal Inspection, Bilateral Eye PERRL, Bilateral Eye EOMI HEENT: PERRL/EOMI, Normal ENT Inspection, Pharynx Normal Neck: Full Range of Motion, Normal Inspection, Non Tender, Supple, Carotid Bruit Respiratory: Chest Non Tender, No Accessory Muscle Use, No Respiratory Distress, Decreased Breath Sounds, Wheezing (Expiratory wheezes) Cardiovascular: Regular Rate, Rhythm, No Edema, No Gallop, No JVD, No Murmur, Normal Peripheral Pulses, Bradycardia Gastrointestinal: Normal Bowel Sounds, No Organomegaly, No Pulsatile Mass, Non Tender, Soft Back: Normal Inspection, No CVA Tenderness, No Vertebral Tenderness Extremity: Normal Capillary Refill, Normal Inspection, Normal Range of Motion, Non Tender, No Calf Tenderness, No Pedal Edema Neurologic/Psychiatric: Alert, Oriented x3, No Motor/Sensory Deficits, Normal Mood/Affect Skin: Normal Color, Warm/Dry Lymphatic: No Adenopathy Assessment/Plan Assessment and Plan Assessment: Acute on chronic hypoxic respiratory failure Exacerbation of COPD Bradycardia Near syncope Plan: Home meds Oxygen IV steroids Admission Diagnosis Admission Status: Observation Supervisory-Addendum Brief Verification & Attestation Participated in pt care: history, MDM, physical Personally performed: exam, history, MDM, supervision of care Care discussed with: Medical Student Procedures: n/a Results interpretation: Verified all documentation Verification and Attestation of Medical Student E/M Service A medical student performed and documented this service in my presence. I reviewed and verified all information documented by the medical student and made modifications to such information, when appropriate. I personally performed the physical exam and medical decision making. Siria Tellez, Jan 09, 2022,05:37 ELROY BARRIENTOS Jan 08, 2022 13:24 SIRIA TELLEZ DO Jan 09, 2022 05:40
[2022-01-08 15:54] VITALS: BP 120/53
[2022-01-08 19:56] VITALS: BP 102/52
[2022-01-08] MEDS: ENOXAPARIN 40 MG/0.4 ML (LOVENOX) SYR SC SCH (20:52)
[2022-01-08] MEDS ORDERED: AZITHROMYCIN 250 MG TAB (ZITHROMAX) PO SCH (21:00)
[2022-01-08] MEDS ORDERED: MONTELUKAST 10 MG (SINGULAIR) TAB PO SCH (21:00)
[2022-01-08 23:25] VITALS: BP 101/54
[2022-01-09] MEDS: RT-ALBUTEROL/IPRATROPIUM 3 ML (DUONEB) VIAL INH SCH ×3 (02:15→11:00)
[2022-01-09 04:02] VITALS: BP 113/65
[2022-01-09] MEDS ORDERED: ACETAMINOPHEN 500 MG TAB (TYLENOL) PO PRN (05:45)
[2022-01-09] MEDS ORDERED: MONTELUKAST 10 MG (SINGULAIR) TAB PO PRN (05:45)
[2022-01-09] MEDS: methylPREDNISolone 125 MG (Solu-MEDROL) VIAL IV SCH (05:48)
[2022-01-09] MEDS ORDERED: CYCLOBENZAPRINE 10 MG (FLEXERIL) TAB PO PRN (06:15)
[2022-01-09 06:29] LABS: BASOPHILS % (AUTO) 0 % (0-10); EOSINOPHILS % (AUTO) 0 % (0-10); HEMATOCRIT 36 % (35-52); HEMOGLOBIN 12.1 g/dL (11.5-16.0); LYMPHOCYTES # (AUTO) 1.1 10^3/uL (1.0-4.0); LYMPHOCYTES % (AUTO) 7 % (12-44); MEAN CORPUSCULAR HEMOGLOBIN 31 pg (25-34); MEAN CORPUSCULAR HGB CONC 33 g/dL (32-36); MEAN CORPUSCULAR VOLUME 93 fL (80-99); MEAN PLATELET VOLUME 10.8 fL (9.0-12.2); MONOCYTES # (AUTO) 0.8 10^3/uL (0.0-1.0); MONOCYTES % (AUTO) 5 % (0-12); NEUTROPHILS # (AUTO) 13.8 10^3/uL (1.8-7.8); NEUTROPHILS % (AUTO) 87 % (42-75); PLATELET COUNT 229 10^3/uL (130-400); WHITE BLOOD COUNT 15.8 10^3/uL (4.3-11.0)
[2022-01-09] MEDS ORDERED: FLUTICASONE NASAL SPRAY (FLONASE) 16 GM BTL NS PRN (06:30)
[2022-01-09 06:43] LABS: ALBUMIN 3.7 GM/DL (3.2-4.5); POTASSIUM 3.8 MMOL/L (3.6-5.0)
[2022-01-09 06:45] LABS: TOTAL PROTEIN 6.7 GM/DL (6.4-8.2)
[2022-01-09 06:47] LABS: BILIRUBIN,TOTAL 0.3 MG/DL (0.1-1.0)
[2022-01-09 06:49] LABS: CREATININE SERUM 0.68 MG/DL (0.60-1.30)
[2022-01-09] MEDS ORDERED: PANTOPRAZOLE 40 MG (PROTONIX) TAB PO SCH (07:00)
[2022-01-09 07:17] VITALS: BP 123/58
[2022-01-09] MEDS: RT-BUDESONIDE NEBS 0.5 MG/2ML (PULMICORT) AMP INH SCH (07:26)
[2022-01-09 07:34] LABS: BAND NEUTROPHILS 0 %; BASOPHILS % (MANUAL) 0 %; EOSINOPHILS % (MANUAL) 0 %; LYMPHOCYTES % (MANUAL) 8 %; MONOCYTES % (MANUAL) 3 %; NEUTROPHILS % (MANUAL) 89 %; RBC MORPH NORMAL
[2022-01-09] MEDS ORDERED: LOSARTAN 100 MG (COZAAR) TABLET PO SCH (09:00)
[2022-01-09] MEDS ORDERED: TERBINAFINE 250 MG (LamISIL) TABLET PO SCH (09:00)
[2022-01-09] MEDS ORDERED: NON-FORMULARY MEDICATION 1 EA EA (Cetirizine HCl (Zyrtec) 10 MG) PO SCH (09:00)
[2022-01-09] MEDS ORDERED: meTOproloL SUCCINATE 50 MG (TOPROL XL) TAB PO SCH (09:00)
[2022-01-09] MEDS ORDERED: FLUTICASONE/VILANTEROL 200 MCG 14'S (BREO) IH SCH (09:00)
[2022-01-09] MEDS ORDERED: LOSARTAN 50 MG (COZAAR) TAB PO SCH (09:00)
--- NOTE | 2022-01-09 09:04 | Cardiology Progress Note ---
Subjective Date Seen by Provider: Jan 09, 2022 Time Seen by Provider: 09:03 Subjective/Events-last exam Patient is laying down in bed, feeling well, no further episodes of shortness of breath or chest discomfort Review of Systems General: No Chills, No Night Sweats, No Fatigue, No Malaise, No Appetite, No Other HEENT: No Head Aches, No Visual Changes, No Eye Pain, No Ear Pain, No Dysphasia, No Sinus Congestion, No Post Nasal Drip, No Sore Throat, No Other Pulmonary: No Dyspnea, No Cough, No Pleuritic Chest Pain, No Other Cardiovascular: No: Chest Pain, Palpitations, Orthopnea, Paroxysmal Noc. Dyspnea, Edema, Lt Headedness, Other Objective-Cardiology Exam Last Set of Vital Signs Vital Signs 01/07/22 01/09/22 01/09/22 01/09/22 23:14 07:17 07:26 07:31 Temp 36.3 Pulse 56 Resp 20 B/P (MAP) 123/58 (79) Pulse Ox 98 O2 Delivery Nasal Cannula O2 Flow Rate 2.00 FiO2 21 I&O Intake and Output 01/09/22 00:00 Intake Total 4790 ml Output Total 4600 ml Balance 190 ml Intake Oral 4790 ml Output Urine Total 4600 ml # Bowel Movements 2 General: Alert, Oriented X3, Cooperative HEENT: Atraumatic, PERRLA Neck: Supple, No JVD, No Thyromegaly Lungs: Clear to Auscultation, Normal Air Movement Heart: Regular Rate, Normal S1, Normal S2, No Murmurs Abdomen: Normal Bowel Sounds, Soft, No Tenderness, No Hepatosplenomegaly, No Masses Extremities: No Clubbing, No Cyanosis, No Edema, Normal Pulses, No Tenderness/Swelling Skin: No Rashes, No Breakdown, No Significant Lesion Neuro: Normal Gait, Normal Speech, Strength at 5/5 X4 Ext, Normal Tone, Sensati on Intact Psych/Mental Status: Mental Status NL, Mood NL Results Lab Laboratory Tests 01/09/22 06:20 A/P-Cardiology Admission Diagnosis Dyspnea AE COPD CP HTN Assessment/Plan Dyspnea, AE COPD, management per medical services. Planning to repeat 2D Echo Recurrent palpitation, recurrent chest pain, reports improvement. Will continue to monitor. Nonobstructive coronary artery disease per cardiac catheterization in June 2014, repeat cardiac catheterization was done on August 13, [address] Machado due to recurrent chest pain showing normal coronaries. Complete heart cath done 02/07/21 showing mild nonobstructive disease, PA 33/14 with a mean of 23mmHg. Bradycardia, patient reports episodes of HR in the 40s and 50s at home with dizziness and lightheadedness. Discontinue Toprol, decrease losartan dose to 50 mg daily, planning to evaluate Holter monitor as an outpatient History of congestive heart failure most recent EF 60 percent. 2-D echocardiogram done April 2019 revealed LVH and diastolic dysfunction. Continue to monitor. I will reevaluate 2D Echo Hypertension, Toprol was stopped, I decreased losartan dose, continue to monitor blood pressure as an outpatient Hyperlipidemia, monitored as outpatient. Generalized fatigue Lower extremity cramps and pain, on and off. ABIs done April 2019 within normal limits Nonobstructive carotid artery stenosis per carotid duplex done April 2019 Tobaccoism-educated on importance of smoking cessation Obesity, BMI is 34, educated and instructed on weight loss. Anxiety PAYTON HAMPTON MD Jan 09, 2022 09:04
[2022-01-09] MEDS: LORATADINE (CLARITIN) 10 MG TAB PO SCH (09:22)
[2022-01-09] MEDS: SENNOSIDES 8.6 MG (SENOKOT) TAB PO SCH (09:22)
[2022-01-09] MEDS: DOCUSATE SODIUM 100 MG (COLACE) CAP PO SCH (09:22)
[2022-01-09] MEDS ORDERED: PRED10TA22 PO (10:48)
[2022-01-09] MEDS ORDERED: AZIT250T12 PO (10:48)
[2022-01-09] MEDS ORDERED: LOSA50TA63 PO (10:48)
--- NOTE | 2022-01-09 10:50 | Discharge Summary ---
Diagnosis/Chief Complaint Date of Admission Jan 07, 2022 at 21:14 Date of Discharge Discharge Date: Jan 09, 2022 Discharge Diagnosis Assessment: Acute on chronic hypoxic respiratory failure Exacerbation of COPD Bradycardia Near syncope Current smoker Reason Hospital Visit CC: SOB with bradycardia HPI: 61 yr old WF admitted for observation due to SOB due to exacerbation of COPD and bradycardia. Her heart rate has been as low as 48. Dr. Lockwood has been consulted. I will hep lock her IV fluid and we will maintain IV steroids. Her home medication will be evaluated. Discharge Summary Discharge Physical Examination Allergies: Coded Allergies: aspirin (Unverified Allergy, Severe, EDEMA, 04/07/12) Vitals & I&Os Vital Signs Date Time Temp Pulse Resp B/P (MAP) Pulse Ox O2 Delivery O2 Flow Rate FiO2 01/09/22 12:22 36.8 63 18 104/55 95 Nasal Cannula 3.00 01/07/22 23:14 21 General Appearance: Alert, Oriented X3, Cooperative Respiratory: Clear to Auscultation Cardiovascular: Regular Rate Psych/Mental Status: Mental Status NL Hospital Course Was the Problem List Reviewed?: Yes Bijal if a 61yo F with a PMH that includes CAD, hyperlipidemia, hypertension, COPD, TIA, hypothyroidism, and at home oxygen of 3L which she wears at night and as needed. She presented to the [place] ER on 01/07/22 with a chief complaint of SOB and cough for the past week. She also had been having low HR for the past few weeks in the 40-50 range. Denies having any chest pain. Troponins were not elevated and EKG showed sinus rhythm. Patient had oxygen saturations in the 95 range when on room air in the ER. IV steroids and azithromycin were started. Patient was admitted for COPD exacerbation. The day after being hospitalized she was having some SOB when getting up to go to the restroom and it took her about 20 minutes for her oxygen saturations to recover. Patient states that her son moved in with her and he has 10 dogs which she believes is what exacerbated her COPD symptoms. Cardiology was consulted and it was decided that the most likely cause of her bradycardia was from taking her Metoprolol so that medication was discontinued. An echocardiogram was done which showed mild concentric hypertrophy, grade I diastolic dysfunction, and EF of 50-55%. Previous echo done in 2013 shoed EF of 60%. Patient reports feeling better today. She is now on 2 L of oxygen via nasal cannula. She is no longer feeling out of breath when getting up to go to the restroom and her oxygen is maintained in the high 90% range as soon as she puts her oxygen back on. Patient is being discharged with PO azithromycin 250mg, oral losartan 50 mg, and oral prednisone 10mg. Patient should use her at home oxygen as needed. ELROY BARRIENTOS Labs (last 24 hrs) Laboratory Tests 01/07/22 20:25: White Blood Count 6.4, Red Blood Count 4.61, Hemoglobin 14.4, Hematocrit 45, Mean Corpuscular Volume 97, Mean Corpuscular Hemoglobin 31, Mean Corpuscular Hemoglobin Concent 32, Red Cell Distribution Width 13.6, Platelet Count 265, Mean Platelet Volume 10.4, Immature Granulocyte % (Auto) 0, Neutrophils (%) (Auto) 57, Lymphocytes (%) (Auto) 29, Monocytes (%) (Auto) 10, Eosinophils (%) (Auto) 3, Basophils (%) (Auto) 1, Neutrophils # (Auto) 3.7, Lymphocytes # (Auto) 1.9, Monocytes # (Auto) 0.6, Eosinophils # (Auto) 0.2, Basophils # (Auto) 0.0, Immature Granulocyte # (Auto) 0.0, Prothrombin Time 12.5, INR Comment 0.9, Activated Partial Thromboplast Time 31, Sodium Level 135, Potassium Level 4.2, Chloride Level 101, Carbon Dioxide Level 21, Anion Gap 13, Blood Urea Nitrogen 13, Creatinine 0.76, Estimat Glomerular Filtration Rate 90, BUN/Creatinine Ratio 17, Glucose Level 91, Calcium Level 9.6, Corrected Calcium 9.2, Magnesium Level 2.2, Total Bilirubin 0.6, Aspartate Amino Transf (AST/SGOT) 29, Alanine Aminotransferase (ALT/SGPT) 27, Alkaline Phosphatase 90, Myoglobin 47.8, Troponin I < 0.028, Total Protein 8.2, Albumin 4.5 01/07/22 20:33: Blood Gas Puncture Site RIGHT RADIAL, Blood Gas Patient Temperature 35.9, Arterial Blood pH 7.42, Arterial Blood Partial Pressure CO2 39, Arterial Blood Partial Pressure O2 75L, Arterial Blood HCO3 25, Arterial Blood Total CO2 26.5, Arterial Blood Oxygen Saturation 97, Arterial Blood Base Excess 1.0, Sebastien Test YES-POS, Blood Gas Ventilator Setting NO, Blood Gas Inspired Oxygen ROOM AIR 01/07/22 20:45: Influenza Type A (RT-PCR) Not Detected, Influenza Type B (RT-PCR) Not Detected, SARS-CoV-2 RNA (RT-PCR) Not Detected 01/08/22 05:52: White Blood Count 3.8L, Red Blood Count 4.00, Hemoglobin 12.4, Hematocrit 38, Mean Corpuscular Volume 94, Mean Corpuscular Hemoglobin 31, Mean Corpuscular Hemoglobin Concent 33, Red Cell Distribution Width 13.1, Platelet Count 216, Mean Platelet Volume 11.2, Immature Granulocyte % (Auto) 1, Neutrophils (%) (Auto) 83H, Lymphocytes (%) (Auto) 15, Monocytes (%) (Auto) 2, Eosinophils (%) (Auto) 0, Basophils (%) (Auto) 0, Neutrophils # (Auto) 3.1, Lymphocytes # (Auto) 0.6L, Monocytes # (Auto) 0.1, Eosinophils # (Auto) 0.0, Basophils # (Auto) 0.0, Immature Granulocyte # (Auto) 0.0, Sodium Level 136, Potassium Level 3.8, Chloride Level 104, Carbon Dioxide Level 23, Anion Gap 9, Blood Urea Nitrogen 15, Creatinine 0.70, Estimat Glomerular Filtration Rate 99, BUN/Creatinine Ratio 21, Glucose Level 205H, Calcium Level 8.8, Corrected Calcium 9.2, Total Bilirubin 0.3, Aspartate Amino Transf (AST/SGOT) 20, Alanine Aminotransferase (ALT/SGPT) 22, Alkaline Phosphatase 72, Troponin I < 0.028, Total Protein 6.5, Albumin 3.5, Triglycerides Level 53, Cholesterol Level 182, LDL Cholesterol Direct 99, VLDL Cholesterol 11, HDL Cholesterol 71H 01/09/22 06:20: White Blood Count 15.8H, Red Blood Count 3.89, Hemoglobin 12.1, Hematocrit 36, Mean Corpuscular Volume 93, Mean Corpuscular Hemoglobin 31, Mean Corpuscular Hemoglobin Concent 33, Red Cell Distribution Width 13.2, Platelet Count 229, Mean Platelet Volume 10.8, Immature Granulocyte % (Auto) 0, Neutrophils (%) (Auto) 87H, Lymphocytes (%) (Auto) 7L, Monocytes (%) (Auto) 5, Eosinophils (%) (Auto) 0, Basophils (%) (Auto) 0, Neutrophils # (Auto) 13.8H, Lymphocytes # (Auto) 1.1, Monocytes # (Auto) 0.8, Eosinophils # (Auto) 0.0, Basophils # (Auto) 0.0, Immature Granulocyte # (Auto) 0.1, Neutrophils % (Manual) 89, Lymphocytes % (Manual) 8, Monocytes % (Manual) 3, Eosinophils % (Manual) 0, Basophils % (Manual) 0, Band Neutrophils 0, Blood Morphology Comment NORMAL, Sodium Level 134L, Potassium Level 3.8, Chloride Level 102, Carbon Dioxide Level 23, Anion Gap 9, Blood Urea Nitrogen 12, Creatinine 0.68, Estimat Glomerular Filtration Rate 100, BUN/Creatinine Ratio 18, Glucose Level 113H, Calcium Level 9.0, Corrected Calcium 9.2, Total Bilirubin 0.3, Aspartate Amino Transf (AST/SGOT) 16, Alanine Aminotransferase (ALT/SGPT) 20, Alkaline Phosphatase 68, Total Protein 6.7, Albumin 3.7 Pending Labs Laboratory Tests 01/07/22 20:25: White Blood Count 6.4, Red Blood Count 4.61, Hemoglobin 14.4, Hematocrit 45, Mean Corpuscular Volume 97, Mean Corpuscular Hemoglobin 31, Mean Corpuscular Hemoglobin Concent 32, Red Cell Distribution Width 13.6, Platelet Count 265, Mean Platelet Volume 10.4, Immature Granulocyte % (Auto) 0, Neutrophils (%) (Auto) 57, Lymphocytes (%) (Auto) 29, Monocytes (%) (Auto) 10, Eosinophils (%) (Auto) 3, Basophils (%) (Auto) 1, Neutrophils # (Auto) 3.7, Lymphocytes # (Auto) 1.9, Monocytes # (Auto) 0.6, Eosinophils # (Auto) 0.2, Basophils # (Auto) 0.0, Immature Granulocyte # (Auto) 0.0, Prothrombin Time 12.5, INR Comment 0.9, Activated Partial Thromboplast Time 31, Sodium Level 135, Potassium Level 4.2, Chloride Level 101, Carbon Dioxide Level 21, Anion Gap 13, Blood Urea Nitrogen 13, Creatinine 0.76, Estimat Glomerular Filtration Rate 90, BUN/Creatinine Ratio 17, Glucose Level 91, Calcium Level 9.6, Corrected Calcium 9.2, Magnesium Level 2.2, Total Bilirubin 0.6, Aspartate Amino Transf (AST/SGOT) 29, Alanine Aminotransferase (ALT/SGPT) 27, Alkaline Phosphatase 90, Myoglobin 47.8, Troponin I < 0.028, Total Protein 8.2, Albumin 4.5 01/07/22 20:33: Blood Gas Puncture Site RIGHT RADIAL, Blood Gas Patient Temperature 35.9, Arterial Blood pH 7.42, Arterial Blood Partial Pressure CO2 39, Arterial Blood Partial Pressure O2 75, Arterial Blood HCO3 25, Arterial Blood Total CO2 26.5, Arterial Blood Oxygen Saturation 97, Arterial Blood Base Excess 1.0, Sebastien Test YES-POS, Blood Gas Ventilator Setting NO, Blood Gas Inspired Oxygen ROOM AIR 01/07/22 20:45: Influenza Type A (RT-PCR) Not Detected, Influenza Type B (RT-PCR) Not Detected, SARS-CoV-2 RNA (RT-PCR) Not Detected 01/08/22 05:52: White Blood Count 3.8, Red Blood Count 4.00, Hemoglobin 12.4, Hematocrit 38, Mean Corpuscular Volume 94, Mean Corpuscular Hemoglobin 31, Mean Corpuscular Hemoglobin Concent 33, Red Cell Distribution Width 13.1, Platelet Count 216, Mean Platelet Volume 11.2, Immature Granulocyte % (Auto) 1, Neutrophils (%) (Auto) 83, Lymphocytes (%) (Auto) 15, Monocytes (%) (Auto) 2, Eosinophils (%) (Auto) 0, Basophils (%) (Auto) 0, Neutrophils # (Auto) 3.1, Lymphocytes # (Auto) 0.6, Monocytes # (Auto) 0.1, Eosinophils # (Auto) 0.0, Basophils # (Auto) 0.0, Immature Granulocyte # (Auto) 0.0, Sodium Level 136, Potassium Level 3.8, Chloride Level 104, Carbon Dioxide Level 23, Anion Gap 9, Blood Urea Nitrogen 15, Creatinine 0.70, Estimat Glomerular Filtration Rate 99, BUN/Creatinine Ratio 21, Glucose Level 205, Calcium Level 8.8, Corrected Calcium 9.2, Total Bilirubin 0.3, Aspartate Amino Transf (AST/SGOT) 20, Alanine Aminotransferase (ALT/SGPT) 22, Alkaline Phosphatase 72, Troponin I < 0.028, Total Protein 6.5, Albumin 3.5, Triglycerides Level 53, Cholesterol Level 182, LDL Cholesterol Direct 99, VLDL Cholesterol 11, HDL Cholesterol 71 01/09/22 06:20: White Blood Count 15.8, Red Blood Count 3.89, Hemoglobin 12.1, Hematocrit 36, Mean Corpuscular Volume 93, Mean Corpuscular Hemoglobin 31, Mean Corpuscular Hemoglobin Concent 33, Red Cell Distribution Width 13.2, Platelet Count 229, Mean Platelet Volume 10.8, Immature Granulocyte % (Auto) 0, Neutrophils (%) (Auto) 87, Lymphocytes (%) (Auto) 7, Monocytes (%) (Auto) 5, Eosinophils (%) (Auto) 0, Basophils (%) (Auto) 0, Neutrophils # (Auto) 13.8, Lymphocytes # (Auto) 1.1, Monocytes # (Auto) 0.8, Eosinophils # (Auto) 0.0, Basophils # (Auto) 0.0, Immature Granulocyte # (Auto) 0.1, Neutrophils % (Manual) 89, Lymphocytes % (Manual) 8, Monocytes % (Manual) 3, Eosinophils % (Manual) 0, Basophils % (Manual) 0, Band Neutrophils 0, Blood Morphology Comment NORMAL, Sodium Level 134, Potassium Level 3.8, Chloride Level 102, Carbon Dioxide Level 23, Anion Gap 9, Blood Urea Nitrogen 12, Creatinine 0.68, Estimat Glomerular Filtration Rate 100, BUN/Creatinine Ratio 18, Glucose Level 113, Calcium Level 9.0, Corrected Calcium 9.2, Total Bilirubin 0.3, Aspartate Amino Transf (AST/SGOT) 16, Alanine Aminotransferase (ALT/SGPT) 20, Alkaline Phosphatase 68, Total Protein 6.7, Albumin 3.7 Discharge Home Medications: Active Scripts Active Prednisone 10 Mg Tab.ds.pk 10 Mg PO DAILY Take 4 tabs(40mg) once daily,decrease by 1 tab(10MG)daily. Losartan Potassium 50 Mg Tablet 50 Mg PO DAILY Azithromycin 250 Mg Tablet 250 Mg PO HS Reported Tylenol Extra Strength (Acetaminophen) 500 Mg Tablet 1,000 Mg PO Q6H PRN Terbinafine HCl 250 Mg Tablet 250 Mg PO DAILY Breo Ellipta 200-25 Mcg INH (Fluticasone/Vilanterol) 1 Each Blst.w.dev 1 Puff INH DAILY Zyrtec (Cetirizine HCl) 10 Mg Capsule 10 Mg PO DAILY Ventolin Hfa (Albuterol Sulfate) 1 Puff Puff 2 Puff INH Q4H PRN Iprat-Albut 0.5-3(2.5) mg/3 ml (Ipratropium/Albuterol Sulfate) 3 Ml Ampul.neb 3 Ml IH Q4H PRN Montelukast Sodium 10 Mg Tablet 10 Mg PO HS PRN Hydrochlorothiazide 25 Mg Tablet 25 Mg PO DAILY Cyclobenzaprine HCl 10 Mg Tablet 10 Mg PO HS PRN Flonase Allergy Relief (Fluticasone Propionate) 9.9 Ml [place].susp 2 [place] NSEACH HS PRN Pantoprazole Sodium 40 Mg Tablet.dr 40 Mg PO BID Instructions to patient/family Please see electronic discharge instructions given to patient. SUZY TELLEZ DO Jan 09, 2022 10:50
[2022-01-09 12:10] VITALS: BP 104/55
[2022-01-09 12:22] VITALS: BP 104/55
--- NOTE | 2022-01-09 13:23 | Progress Note ---
ELROY BARRIENTOS 01/09/22 1323: Progress Note Bijal underwood a 61yo F with a PMH that includes CAD, hyperlipidemia, hypertension, COPD, TIA, hypothyroidism, and at home oxygen of 3L which she wears at night and as needed. She presented to the [place] ER on 01/07/22 with a chief complaint of SOB and cough for the past week. She also had been having low HR for the past few weeks in the 40-50 range. Denies having any chest pain. Troponins were not elevated and EKG showed sinus rhythm. Patient had oxygen saturations in the 95 range when on room air in the ER. IV steroids and azithromycin were started. Patient was admitted for COPD exacerbation. The day after being hospitalized she was having some SOB when getting up to go to the restroom and it took her about 20 minutes for her oxygen saturations to recover. Patient states that her son moved in with her and he has 10 dogs which she believes is what exacerbated her COPD symptoms. Cardiology was consulted and it was decided that the most likely cause of her bradycardia was from taking her Metoprolol so that medication was discontinued. An echocardiogram was done which showed mild concentric hypertrophy, grade I diastolic dysfunction, and EF of 50-55%. Previous echo done in 2014 shoed EF of 60%. Patient reports feeling better today. She is now on 2 L of oxygen via nasal cannula. She is no longer feeling out of breath when getting up to go to the restroom and her oxygen is maintained in the high 90% range as soon as she puts her oxygen back on. Patient is being discharged with PO azithromycin 250mg, oral losartan 50 mg, and oral prednisone 10mg. Patient should use her at home oxygen as needed. SIRIA TELLEZ DO 01/10/22 0547: Supervisory-Addendum Brief Verification & Attestation Participated in pt care: history, MDM, physical Personally performed: exam, history, MDM, supervision of care Care discussed with: Medical Student Procedures: n/a Results interpretation: Verified all documentation Verification and Attestation of Medical Student E/M Service A medical student performed and documented this service in my presence. I reviewed and verified all information documented by the medical student and made modifications to such information, when appropriate. I personally performed the physical exam and medical decision making. Siria Tellez, Jan 10, 2022,05:47 ELROY BARRIENTOS Jan 09, 2022 13:23 SIRIA TELLEZ DO Jan 10, 2022 05:47
[2022-01-09] MEDS ORDERED: RT--FLUTICASONE/SALMETEROL 232-14 (AIRDUO RespiCLICK) IH SCH (21:00)
== END 2022-01-09 13:40 | disposition home or self-care (01) | DRG 190 ==
LOC: EDUNIT# 19:57 → ER 20:01 → 4TH 21:14 → EDLOC 21:14
PROVIDERS: ADMIT Internal Medicine; ATTEND Internal Medicine
DX: J43.9 Emphysema, unspecified (principal); J96.21 Acute and chronic respiratory failure with hypoxia; I25.10 Atherosclerotic heart disease of native coronary artery without angina pectoris; E78.5 Hyperlipidemia, unspecified; E03.9 Hypothyroidism, unspecified; R00.1 Bradycardia, unspecified; K21.9 Gastro-esophageal reflux disease without esophagitis; I11.0 Hypertensive heart disease with heart failure; I50.9 Heart failure, unspecified; I65.29 Occlusion and stenosis of unspecified carotid artery; E66.9 Obesity, unspecified; F41.9 Anxiety disorder, unspecified; H54.7 Unspecified visual loss; H91.90 Unspecified hearing loss, unspecified ear; F17.210 Nicotine dependence, cigarettes, uncomplicated; Z68.34 Body mass index [BMI] 34.0-34.9, adult; Z79.899 Other long term (current) drug therapy; Z79.52 Long term (current) use of systemic steroids; Z99.81 Dependence on supplemental oxygen; Z86.73 Personal history of transient ischemic attack (TIA), and cerebral infarction without residual deficits; Z20.822 Contact with and (suspected) exposure to COVID-19
CPT/HCPCS: 36415; 71045; 80053; 80061; 82805; 83735; 83874; 84484; 85007; 85025; 85027; 85610; 85730; 87636; 93005; 93041; 93306; 94640; 94664; 94760

== ENCOUNTER 2022-02-28 10:43 | Inpatient (IN) | payer MEDICARE ==
[~2022-02-28] VITALS: Ht 160 cm; Wt 89.3 kg
[~2022-02-28 10:43] MED LIST changes: +ACET-2267 PO; +AZIT250T12 PO; +FLUT1BLS INH; +LOSA50TA63 PO; +PRED10TA22 PO; +TERB250T88 PO
[2022-02-28] MEDS ORDERED: morphine INJ 10 MG/ML 1ML (SYR OR VIAL) IVP STA (11:12)
--- NOTE | 2022-02-28 11:20 | ED Cardiac General ---
History of Present Illness General Stated Complaint: SOA - HEART PALPITATIONS Source: patient, old records Exam Limitations: no limitations (MANUEL DIAZ APRN) History of Present Illness Date Seen by Provider: Feb 28, 2022 Time Seen by Provider: 10:59 Initial Comments This is a 61-year-old female who presented to the ER via POV with complaints of palpitations and exertional shortness of air over the past 3 weeks. States that she was admitted to this hospital 3 weeks ago for similar issues and was recently taken off of her metoprolol due to bradycardia. Since she has been taken off of her metoprolol she states she has developed worsening palpitations and worsening shortness of air with activity. Describes a heaviness sensation in her chest with activity and typically resolves with rest. She is currently in pulmonary rehab at [facility] and has been for the past 3 weeks. States that she is not feeling any improvement despite therapies. Does wear 3- 1/2 L of oxygen at bedtime and will occasionally use during the daytime, however she does not feel this is helpful for her exertional shortness of air. She does use her albuterol inhaler this morning and states she did not have any improvement. Also reports frequent night sweats. No fever, chills, worsening cough, nausea, vomiting, diarrhea, rashes, or urinary complaints. Did received COVID vaccines with booster. Despite extensive COPD and recurrent exacerbations she still admits to daily tobacco use. Timing/Duration: other (3 weeks ) Severity: moderate NTG SL BACKPACKERS MANAGER: No Associated Systoms: No Nausea/Vomiting, No Syncope (MANUEL DIAZ APRN) Allergies and Home Medications Allergies Coded Allergies: aspirin (Unverified Allergy, Severe, EDEMA, 04/07/12) Patient Home Medication List Home Medication List Reviewed: Yes (MANUEL DIAZ APRN) Acetaminophen (Tylenol Extra Strength) 500 Mg Tablet, 1,000 MG PO Q6H PRN for PAIN-MILD (1-4), (Reported) Entered as Reported by: EMETERIO COHN on 01/08/22 1200 Last Action: Continued Albuterol Sulfate (Ventolin Hfa) 1 Puff Puff, 2 PUFF INH Q4H PRN for SHORTNESS OF BREATH, (Reported) Entered as Reported by: TIFFANIE LEVINE on 05/29/21 1453 Last Action: Continued Cetirizine HCl (Zyrtec) 10 Mg Capsule, 10 MG PO DAILY, (Reported) Entered as Reported by: TIFFANIE LEVINE on 05/29/211452 Last Action: Converted Fluticasone Propionate (Flonase Allergy Relief) 9.9 Ml Rochert.susp, 2 SPRAY NSEACH HS, (Reported) Entered as Reported by: EMETERIO COHN on 02/07/21818 Last Action: Converted Fluticasone/Vilanterol (Breo Ellipta 200-25 Mcg INH) 1 Each Blst.w.dev, 1 PUFF INH DAILY, (Reported) Entered as Reported by: EMETERIO COHN on 01/08/22 114 Last Action: Continued Hydrochlorothiazide (Hydrochlorothiazide) 25 Mg Tablet, 25 MG PO DAILY, (Reported) Entered as Reported by: EMETERIO COHN on 02/07/21818 Last Action: Continued Ipratropium/Albuterol Sulfate (Iprat-Albut 0.5-3(2.5) mg/3 ml) 3 Ml Ampul.neb, 3 ML IH Q4H PRN for SHORTNESS OF BREATH, (Reported) Entered as Reported by: TIFFANIE LEVINE on 05/29/211452 Last Action: Continued Losartan Potassium (Losartan Potassium) 50 Mg Tablet, 50 MG PO DAILY, (Reported) Entered as Reported by: EMETERIO COHN on 02/28/22 154 Last Action: Continued Montelukast Sodium (Montelukast Sodium) 10 Mg Tablet, 10 MG PO HS, (Reported) Entered as Reported by: EMETERIO COHN on 02/07/21818 Last Action: Continued Pantoprazole Sodium (Pantoprazole Sodium) 40 Mg Tablet.dr, 40 MG PO BID, (Reported) Entered as Reported by: EMETERIO COHN on 02/07/21818 Last Action: Continued Terbinafine HCl (Terbinafine HCl) 250 Mg Tablet, 250 MG PO DAILY, (Reported) Entered as Reported by: EMETERIO COHN on 01/08/22 114 Last Action: Held Discontinued Medications Azithromycin (Azithromycin) 250 Mg Tablet, 250 MG PO HS Discontinued Reason: No Longer Taking Prescribed by: SUZY TELLEZ on 01/09/22 1048 Last Action: Discontinued Cyclobenzaprine HCl (Cyclobenzaprine HCl) 10 Mg Tablet, 10 MG PO HS PRN for MUSCLE SPASMS, (Reported) Discontinued Reason: No Longer Taking Entered as Reported by: EMETERIO COHN on 02/07/21 0819 Last Action: Discontinued Losartan Potassium (Losartan Potassium) 50 Mg Tablet, 50 MG PO DAILY Discontinued Reason: No Longer Taking Prescribed by: SUZY TELLEZ on 01/09/22 104 Last Action: Discontinued Prednisone (Prednisone) 10 Mg Tab.ds.pk, 10 MG PO DAILY Discontinued Reason: No Longer Taking Prescribed by: SUZY TELLEZ on 01/09/221047 Last Action: Discontinued Review of Systems Review of Systems Constitutional: other (night sweats ) EENTM: No Symptoms Reported Respiratory: Cough, Orthopnea, SOA With Exertion, Wheezing Cardiovascular: Chest Pain ("heavy" ); Denies Edema, Denies Lightheadedness; Palpitations Gastrointestinal: No Symptoms Reported Genitourinary: No Symptoms Reported Musculoskeletal: no symptoms reported Skin: no symptoms reported Endocrine: Excessive Sweating (MANUEL DIAZ APRN) Past Dsqciwg-Cmubft-Homezl Hx Immunizations Up To Date Tetanus Booster (TDap): Unknown PED Vaccines UTD: Yes First/Initial COVID19 Vaccinat: 06/18/2021 Second COVID19 Vaccination Maco: 07/16/2021 (MANUEL DIAZ APRN) Seasonal Allergies Seasonal Allergies: No (MANUEL DIAZ APRN) Past Medical History Surgeries: Yes Orthopedic Respiratory: Yes (COPD dependent o2 mostly wears at night 3l) COPD Cardiac: Yes Coronary Artery Disease, High Cholesterol, Hypertension Neurological: Yes (PT STATES HX OF MIGRAINES, NO LONGER A PROBLEM.) TIA Reproductive Disorders: Yes (MISCARRAIGE, HYSTERECTOMY.) Sexually Transmitted Disease: No HIV/AIDS: No Genitourinary: No Gastrointestinal: No Abdominal Hernia Musculoskeletal: Yes (PT STATES ARTHRITIS TO R. SHOULDER, BILAT KNEES ET BACK.) Chronic Back Pain Endocrine: Yes (PT QUIT TAKING SYNTHROID IN 1995) Hypothyroidsim Loss of Vision: Bilateral Hearing Impairment: Hard of Hearing Cancer: No Psychosocial: Yes Anxiety Integumentary: No Blood Disorders: No Adverse Reaction/Blood Tranf: No (MANUEL DIAZ APRN) Family Medical History Cardiovascular disease 19 FATHER 19 MOTHER G8 SISTER Completed stroke 19 MOTHER G8 SISTER Diabetes mellitus G8 SISTER G8 SISTER Drug abuse G8 SISTER Hypertension 19 FATHER 19 MOTHER Myocardial infarction 19 FATHER 19 MOTHER Respiratory disorder G8 SISTER No Family History of: Alzheimer's disease Physical Exam Vital Signs Vital Signs - First Documented 02/28/22 10:45 Temp 35.8 Pulse 91 Resp 20 B/P (MAP) 171/93 (119) Pulse Ox 98 O2 Delivery Room Air (NASRA SUÁREZ MD) Vital Signs Capillary Refill : (MANUEL DIAZ APRN) Height, Weight, BMI Height: 5'3.00" Weight: 178lbs. 0.0oz. [id number]; 35.07 BMI Method:Estimated General Appearance: No Apparent Distress, Anxious HEENT: Normal ENT Inspection, Pharynx Normal, Moist Mucous Membranes Neck: Normal Inspection, Non Tender, Supple Respiratory: No Accessory Muscle Use, No Respiratory Distress, Expiration, Wheezing Cardiovascular: Regular Rate, Rhythm, No Gallop, No Murmur, Normal Peripheral Pulses Gastrointestinal: Normal Bowel Sounds, Non Tender, Soft Extremity: Normal Capillary Refill, Normal Inspection, Normal Range of Motion Neurologic/Psychiatric: Alert, Oriented x3, No Motor/Sensory Deficits, Normal Mood/Affect, developmental specialist II-XII Norm as Tested Skin: Normal Color, Warm/Dry (MANUEL DIAZ APRN) Focused Exam Lactate Level 02/28/22 11:27: Lactic Acid Level 0.94 (NASRA SUÁREZ MD) Lactic Acid Level Laboratory Tests Test 02/28/22 11:27 Lactic Acid Level 0.94 MMOL/L (0.50-2.00) (NASRA SUÁREZ MD) Progress/Results/Core Measures Results/Orders Lab Results Laboratory Tests Test 02/28/22 11:03 02/28/22 11:09 02/28/22 11:16 02/28/22 11:27 Range/Units White Blood Count 5.4 4.3-11.0 10^3/uL Red Blood Count 4.66 3.80-5.11 10^6/uL Hemoglobin 14.5 11.5-16.0 g/dL Hematocrit 43 35-52 % Mean Corpuscular Volume 92 80-99 fL Mean Corpuscular Hemoglobin 31 25-34 pg Mean Corpuscular Hemoglobin Concent 34 32-36 g/dL Red Cell Distribution Width 12.8 10.0-14.5 % Platelet Count 257 130-400 10^3/uL Mean Platelet Volume 11.3 9.0-12.2 fL Immature Granulocyte % (Auto) 0 % Neutrophils (%) (Auto) 59 42-75 % Lymphocytes (%) (Auto) 28 12-44 % Monocytes (%) (Auto) 9 0-12 % Eosinophils (%) (Auto) 3 0-10 % Basophils (%) (Auto) 1 0-10 % Neutrophils # (Auto) 3.2 1.8-7.8 10^3/uL Lymphocytes # (Auto) 1.5 1.0-4.0 10^3/uL Monocytes # (Auto) 0.5 0.0-1.0 10^3/uL Eosinophils # (Auto) 0.1 0.0-0.3 10^3/uL Basophils # (Auto) 0.0 0.0-0.1 10^3/uL Immature Granulocyte # (Auto) 0.0 0.0-0.1 10^3/uL Prothrombin Time 12.4 12.2-14.7 SEC INR Comment 0.9 0.8-1.4 Activated Partial Thromboplast Time 30 24-35 SEC D-Dimer 0.52 H 0.00-0.49 UG/ML Sodium Level 135 135-145 MMOL/L Potassium Level 3.5 L 3.6-5.0 MMOL/L Chloride Level 95 L 98-107 MMOL/L Carbon Dioxide Level 27 21-32 MMOL/L Anion Gap 13 5-14 MMOL/L Blood Urea Nitrogen 13 7-18 MG/DL Creatinine 0.72 0.60-1.30 MG/DL Estimat Glomerular Filtration Rate 96 BUN/Creatinine Ratio 18 Glucose Level 94 70-105 MG/DL Calcium Level 9.3 8.5-10.1 MG/DL Corrected Calcium 9.1 8.5-10.1 MG/DL Magnesium Level 2.1 1.6-2.4 MG/DL Total Bilirubin 0.4 0.1-1.0 MG/DL Aspartate Amino Transf (AST/SGOT) 26 5-34 U/L Alanine Aminotransferase (ALT/SGPT) 24 0-55 U/L Alkaline Phosphatase 79 40-136 U/L Myoglobin 46.0 10.0-92.0 NG/ML Troponin I < 0.028 <0.028 NG/ML B-Type Natriuretic Peptide < 10.0 <100.0 PG/ML Total Protein 7.3 6.4-8.2 GM/DL Albumin 4.2 3.2-4.5 GM/DL Thyroid Stimulating Hormone (TSH) 0.77 0.35-4.94 UIU/ML Blood Gas Puncture Site L WRIST Blood Gas Patient Temperature 35.8 Arterial Blood pH 7.47 H 7.37-7.43 Arterial Blood Partial Pressure CO2 39 35-45 MMHG Arterial Blood Partial Pressure O2 59 L 79-93 MMHG Arterial Blood HCO3 28 H 23-27 MMOL/L Arterial Blood Total CO2 29.6 21.0-31.0 MMOL/L Arterial Blood Oxygen Saturation 94 94-100 % Arterial Blood Base Excess 4.5 H -2.5-2.5 MMOL/L Sebastien Test YES-POS Blood Gas Ventilator Setting NO Blood Gas Inspired Oxygen RA Influenza Type A (RT-PCR) Not Detected Not Detecte Influenza Type B (RT-PCR) Not Detected Not Detecte SARS-CoV-2 RNA (RT-PCR) Not Detected Not Detecte Lactic Acid Level 0.94 0.50-2.00 MMOL/L (NASRA SUÁREZ MD) Vital Signs/I&O 02/28/22 02/28/22 10:45 10:45 Temp 35.8 Pulse 91 Resp 20 B/P (MAP) 171/93 (119) Pulse Ox 98 O2 Delivery Room Air (NASRA SUÁREZ MD) Progress Progress Note : Progress Note Patient examined and in no acute distress. Upon arrival her heart rate was 86 with O2 saturation 97% on room air. States that she is starting to feel a little better at rest. EKG sinus rhythm unchanged from prior. No ST elevation or depression. Will initiate cardiac and respiratory workup as well as obtain. Imaging and labs reviewed, relatively unremarkable. No elevation in cardiac markers or changes in EKG. Reviewed findings with Dr. Tellez as well as Dr. Lockwood. Dr. Tellez will admit inpatient for exacerbation of COPD, will write admit orders. Dr. Domínguez will consult. Would like metoprolol 25 mg ER to be given in ER and to start daily thereafter. Reviewed plan of care with patient and she is agreeable with plan. (MANUEL DIAZ NEWSPAPER OR PERIODICAL EDITOR) Initial ECG Impression Date: Feb 28, 2022 Initial ECG Impression Time: 10:53 Initial ECG Rate: 86 Initial ECG Rhythm: Normal Sinus Initial ECG Impression: Normal Initial ECG Comparisson: Unchanged (MANUEL DIAZ APRN) Diagnostic Imaging Diagonstic Imaging: Xray Plain Films/CT/US/NM/MRI: chest Comments [facility] [place]. [place], [place] NAME: MIMI SR [facility] REC#: [id number] PT STATUS: REG ER : 1960 PHYSICIAN: MANUEL DIAZ APRN ADMIT DATE: 02/28/22/ER Draft Date of Exam:02/28/22 CHEST 1 VIEW, AP/PA ONLY INDICATION: Chest pain. Frontal chest obtained at 11:57 a.m. and compared to 01/07/2022. FINDINGS: Heart and mediastinal silhouette are normal in appearance. The lungs are clear. There is no pneumothorax or pleural fluid. IMPRESSION: Negative chest. Dictated on workstation # [id number] Dict: 02/28/22 1218 Trans: 02/28/22 1219 [id number] Interpreted by: CHICA YUEN MD Electronically signed by: Reviewed: Reviewed by Me (MANUEL DIAZ APRN) Departure Communication (Admissions) Time/Spoke to Admitting Phy: 12:[address] Tellez, will admit inpatient for exacerbation of COPD. Discussed case with Dr. Lockwood, would like 24 hour holter monitor and to restart Metoprolol 25mg ER daily. Dr. Lockwood presented to the ER to evaluate patient. Updated the Dr. Tellez was going to admit for her exacerbation of COPD. DC'd order for 24-hour Holter monitor, will consult while inpatient. (MANUEL DIAZ APRN) Impression Primary Impression: COPD exacerbation Additional Impression: Chest pain Disposition: ADMITTED INPATIENT Condition: Stable Admissions Decision to Admit Reason: Admit from ER (General) Decision to Admit/Date: Feb 28, 2022 Time/Decision to Admit Time: 12:30 (MANUEL DIAZ APRN) Departure-Patient Inst. Referrals: SUZY TELLEZ DO (PCP/Family) Primary Care Physician ATTENDING PHYSICIAN NOTE: I was physically present as attending physician in the emergency department during the care of this patient, but I was not directly involved in the decision making or delivery of care for this patient. (NASRA SUÁREZ MD) Copy Copies To 1: SUZY TELLEZ STORMY D APRN Feb 28, 2022 11:20 NASRA SUÁREZ MD Mar 01, 2022 06:56
[2022-02-28 11:21] LABS: BASOPHILS % (AUTO) 1 % (0-10); EOSINOPHILS # (AUTO) 0.1 10^3/uL (0.0-0.3); EOSINOPHILS % (AUTO) 3 % (0-10); HEMATOCRIT 43 % (35-52); HEMOGLOBIN 14.5 g/dL (11.5-16.0); LYMPHOCYTES # (AUTO) 1.5 10^3/uL (1.0-4.0); LYMPHOCYTES % (AUTO) 28 % (12-44); MEAN CORPUSCULAR HEMOGLOBIN 31 pg (25-34); MEAN CORPUSCULAR HGB CONC 34 g/dL (32-36); MEAN CORPUSCULAR VOLUME 92 fL (80-99); MEAN PLATELET VOLUME 11.3 fL (9.0-12.2); MONOCYTES # (AUTO) 0.5 10^3/uL (0.0-1.0); MONOCYTES % (AUTO) 9 % (0-12); NEUTROPHILS # (AUTO) 3.2 10^3/uL (1.8-7.8); NEUTROPHILS % (AUTO) 59 % (42-75); PLATELET COUNT 257 10^3/uL (130-400); WHITE BLOOD COUNT 5.4 10^3/uL (4.3-11.0)
[2022-02-28 11:23] LABS: ABG BASE EXCESS 4.5 MMOL/L (-2.5-2.5); ABG OXYGEN SATURATION 94 % (94-100); ABG PCO2 39 MMHG (35-45); ABG PH 7.47 (7.37-7.43); ABG PO2 59 MMHG (79-93); ABG TCO2 29.6 MMOL/L (21.0-31.0)
[2022-02-28 11:24] LABS: ALLENS TEST YES-POS; INSPIRED O2 RA; PATIENT TEMP 35.8; VENTILATOR NO
[2022-02-28 11:33] LABS: INR 0.9 (0.8-1.4); PROTHROMBIN TIME PATIENT 12.4 SEC (12.2-14.7)
[2022-02-28 11:43] LABS: ALBUMIN 4.2 GM/DL (3.2-4.5)
[2022-02-28 11:45] LABS: CALCIUM 9.3 MG/DL (8.5-10.1); POTASSIUM 3.5 MMOL/L (3.6-5.0)
[2022-02-28 11:46] LABS: TOTAL PROTEIN 7.3 GM/DL (6.4-8.2)
[2022-02-28 11:48] LABS: BILIRUBIN,TOTAL 0.4 MG/DL (0.1-1.0)
[2022-02-28 11:50] LABS: CREATININE SERUM 0.72 MG/DL (0.60-1.30)
[2022-02-28 11:52] LABS: MAGNESIUM 2.1 MG/DL (1.6-2.4)
[2022-02-28] MEDS ORDERED: NITROGLYCERIN 2% OINT 1 GM UNIT DOSE PACKET ONE (12:05)
--- NOTE | 2022-02-28 12:20 | Diagnostic Imaging Report ---
INDICATION: Chest pain. Frontal chest obtained at 11:57 a.m. and compared to 01/07/2022. FINDINGS: Heart and mediastinal silhouette are normal in appearance. The lungs are clear. There is no pneumothorax or pleural fluid. IMPRESSION: Negative chest. Dictated by: Dictated on workstation # [id number]
[2022-02-28] MEDS ORDERED: morphine INJ 10 MG/ML 1ML (SYR OR VIAL) ONE (12:38)
[2022-02-28] MEDS ORDERED: morphine INJ 4 MG/ML 1 ML (VIAL/SYRINGE) IVP ONE (12:45)
--- NOTE | 2022-02-28 13:10 | Consultation-Cardiology ---
HPI-Cardiology Cardiology Consultation Date of Consultation 02/28/22 Date of Admission Time Seen by Provider: 13:05 Indication: Palpitation HPI 61-year-old lady with history of palpitation, chest pain, sinus node dysfunction. COPD. Came into the emergency room for worsening palpitation reporting chest pain dull in the retrosternal area and sharp pain radiating to the left side of her chest. Shortness of breath which has been worsening, patient is having significant wheezing and she has been having multiple episodes of palpitations. Home Medications & Allergies Allergies: Coded Allergies: aspirin (Unverified Allergy, Severe, EDEMA, 04/07/12) Home Medication List Reviewed: Yes LVW-Uzffth-Xqootu Hx Patient Social History Marital Status: single Smoking Status: Current Everyday Smoker Type Used: Cigarettes 2nd Hand Smoke Exposure: Yes Recent Hopitalizations: Yes Have you traveled recently?: No Alcohol Use?: No Immunizations Up To Date Tetanus Booster (TDap): Unknown Date of Pneumonia Vaccine: Feb 03, 2013 Past Medical History Discussed below Family Medical History Family History: Cardiovascular disease 19 FATHER 19 MOTHER G8 SISTER Completed stroke 19 MOTHER G8 SISTER Diabetes mellitus G8 SISTER G8 SISTER Drug abuse G8 SISTER Hypertension 19 FATHER 19 MOTHER Myocardial infarction 19 FATHER 19 MOTHER Respiratory disorder G8 SISTER No Family History of: Alzheimer's disease Review of Systems-General Review of Systems Constitutional: see HPI, malaise, weakness, other (night sweats ) EENTM: see HPI, no symptoms reported Respiratory: see HPI, cough, dyspnea on exertion; No hemoptysis, No orthopnea, No phlegm, No short of breath, No stridor; wheezing; No other Cardiovascular: No no symptoms reported; see HPI, chest pain; No edema, No Hx of Intervention; palpitations; No syncope, No vascular heart diseas Gastrointestinal: no symptoms reported, see HPI Genitourinary: no symptoms reported, see HPI Musculoskeletal: no symptoms reported Skin: no symptoms reported Psychiatric/Neurological: No Symptoms Reported, See HPI Reviewed Test Results Reviewed Test Results Lab Laboratory Tests Test 02/28/22 11:03 02/28/22 11:09 02/28/22 11:16 02/28/22 11:27 Range/Units White Blood Count 5.4 4.3-11.0 10^3/uL Red Blood Count 4.66 3.80-5.11 10^6/uL Hemoglobin 14.5 11.5-16.0 g/dL Hematocrit 43 35-52 % Mean Corpuscular Volume 92 80-99 fL Mean Corpuscular Hemoglobin 31 25-34 pg Mean Corpuscular Hemoglobin Concent 34 32-36 g/dL Red Cell Distribution Width 12.8 10.0-14.5 % Platelet Count 257 130-400 10^3/uL Mean Platelet Volume 11.3 9.0-12.2 fL Immature Granulocyte % (Auto) 0 % Neutrophils (%) (Auto) 59 42-75 % Lymphocytes (%) (Auto) 28 12-44 % Monocytes (%) (Auto) 9 0-12 % Eosinophils (%) (Auto) 3 0-10 % Basophils (%) (Auto) 1 0-10 % Neutrophils # (Auto) 3.2 1.8-7.8 10^3/uL Lymphocytes # (Auto) 1.5 1.0-4.0 10^3/uL Monocytes # (Auto) 0.5 0.0-1.0 10^3/uL Eosinophils # (Auto) 0.1 0.0-0.3 10^3/uL Basophils # (Auto) 0.0 0.0-0.1 10^3/uL Immature Granulocyte # (Auto) 0.0 0.0-0.1 10^3/uL Prothrombin Time 12.4 12.2-14.7 SEC INR Comment 0.9 0.8-1.4 Activated Partial Thromboplast Time 30 24-35 SEC D-Dimer 0.52 H 0.00-0.49 UG/ML Sodium Level 135 135-145 MMOL/L Potassium Level 3.5 L 3.6-5.0 MMOL/L Chloride Level 95 L 98-107 MMOL/L Carbon Dioxide Level 27 21-32 MMOL/L Anion Gap 13 5-14 MMOL/L Blood Urea Nitrogen 13 7-18 MG/DL Creatinine 0.72 0.60-1.30 MG/DL Estimat Glomerular Filtration Rate 96 BUN/Creatinine Ratio 18 Glucose Level 94 70-105 MG/DL Calcium Level 9.3 8.5-10.1 MG/DL Corrected Calcium 9.1 8.5-10.1 MG/DL Magnesium Level 2.1 1.6-2.4 MG/DL Total Bilirubin 0.4 0.1-1.0 MG/DL Aspartate Amino Transf (AST/SGOT) 26 5-34 U/L Alanine Aminotransferase (ALT/SGPT) 24 0-55 U/L Alkaline Phosphatase 79 40-136 U/L Myoglobin 46.0 10.0-92.0 NG/ML Troponin I < 0.028 <0.028 NG/ML B-Type Natriuretic Peptide < 10.0 <100.0 PG/ML Total Protein 7.3 6.4-8.2 GM/DL Albumin 4.2 3.2-4.5 GM/DL Thyroid Stimulating Hormone (TSH) 0.77 0.35-4.94 UIU/ML Blood Gas Puncture Site L WRIST Blood Gas Patient Temperature 35.8 Arterial Blood pH 7.47 H 7.37-7.43 Arterial Blood Partial Pressure CO2 39 35-45 MMHG Arterial Blood Partial Pressure O2 59 L 79-93 MMHG Arterial Blood HCO3 28 H 23-27 MMOL/L Arterial Blood Total CO2 29.6 21.0-31.0 MMOL/L Arterial Blood Oxygen Saturation 94 94-100 % Arterial Blood Base Excess 4.5 H -2.5-2.5 MMOL/L Sebastien Test YES-POS Blood Gas Ventilator Setting NO Blood Gas Inspired Oxygen RA Influenza Type A (RT-PCR) Not Detected Not Detecte Influenza Type B (RT-PCR) Not Detected Not Detecte SARS-CoV-2 RNA (RT-PCR) Not Detected Not Detecte Lactic Acid Level 0.94 0.50-2.00 MMOL/L Physical Exam Physical Exam Vital Signs Vital Signs - First Documented 02/28/22 10:45 Temp 35.8 Pulse 91 Resp 20 B/P (MAP) 171/93 (119) Pulse Ox 98 O2 Delivery Room Air Capillary Refill : Less Than 3 Seconds Height, Weight, BMI Height: 5'3.00" Weight: 178lbs. 0.0oz. 80.656327gf; 34.00 BMI Method:Estimated General Appearance: No Apparent Distress, Anxious HEENT: Normal ENT Inspection, Pharynx Normal, Moist Mucous Membranes Neck: Normal Inspection, Non Tender, Supple Respiratory: No Accessory Muscle Use, No Respiratory Distress, Expiration, Wheezing Cardiovascular: Regular Rate, Rhythm, No Gallop, No Murmur, Normal Peripheral Pulses Gastrointestinal: Normal Bowel Sounds, Non Tender, Soft Extremity: Normal Capillary Refill, Normal Inspection, Normal Range of Motion Neurologic/Psychiatric: Alert, Oriented x3, No Motor/Sensory Deficits, Normal Mood/Affect, pre sales architect II-XII Norm as Tested Skin: Normal Color, Warm/Dry A/P-Cardiology Admission Diagnosis Chest pain Palpitation Shortness of breath Acute exacerbation of COPD Assessment/Plan Chest pain, nonspecific etiology, atypical in presentation, had a cardiac catheterization done in January 2021 showing nonobstructive disease. EKG did not show any acute abnormality, cardiac enzymes are negative. Chest pain is probably musculoskeletal. Shortness of breath, acute exacerbation of COPD, having significant wheezing. Started on steroids and bronchodilators. Recurrent palpitation, having multiple episodes of palpitations. Has history of sinus node dysfunction with severe bradycardia. Beta-blockers were discontinued in the past due to bradycardia. She was having episodes of dizziness and lightheadedness. We will monitor her on telemetry and restart Toprol at 25 mg daily. Coronary artery disease, Cardiac catheterization done in 2013 then repeat cardiac catheterization in July 2020 showing no significant obstructive disease Repeat cardiac catheterization was done in January 2021 showing mild disease no nobstructive disease History of congestive heart failure, improved, last echo done in December 2021 showing normal LV size, EF 50 to 55%, grade 1 diastolic dysfunction, normal pulmonary artery pressure of 20 to 25 mmHg. Hypertension, restart home medication monitor blood pressure Hyperlipidemia, monitor lipids History of lower extremities pain and cramps, SHARAN was done in April 2019 it was normal Mild bilateral carotid stenosis, ultrasound was done in January 2022. Continue to monitor Obesity BMI 34. Discussed weight loss Tobaccoism, still an active smoker and educated on smoking cessation PAYTON HAMPTON MD Feb 28, 2022 13:10
[2022-02-28] MEDS ORDERED: BISACODYL 10 MG SUPP (DULCOLAX) PR PRN (14:00)
[2022-02-28] MEDS ORDERED: CALCIUM CARBONATE 500 MG (TUMS) TAB.CHEW PO PRN (14:00)
[2022-02-28] MEDS ORDERED: polyethylene glycoL POWDER 17 GM (MIRALAX) PACK PO PRN (14:00)
[2022-02-28] MEDS ORDERED: diphenhydrAMINE 50 MG/ML INJ (BENADRYL) IVP PRN (14:00)
[2022-02-28] MEDS ORDERED: ALPRAZolam 0.25 MG (XANAX) TAB PO PRN (14:00)
[2022-02-28] MEDS ORDERED: ONDANSETRON 4 MG/2 ML (SDV) Z0FRAN IV PRN (14:00)
[2022-02-28] MEDS ORDERED: diphenhydrAMINE 25 MG TAB (BENADRYL) PO PRN (14:00)
[2022-02-28] MEDS ORDERED: ACETAMINOPHEN 325 MG TABLET PO PRN (14:00)
[2022-02-28] MEDS ORDERED: MELATONIN 3 MG TABLET PO PRN (14:00)
[2022-02-28] MEDS ORDERED: ANTACID SUSP 30 ML UDC (MYLANTA) PO PRN (14:00)
[2022-02-28] MEDS ORDERED: NALOXONE 0.4 MG/ML 1 ML (NARCAN) VIAL IV PRN (14:00)
[2022-02-28] MEDS ORDERED: LACTULOSE SYRUP 10GM/15ML (ENULOSE) 30ML UDC PO PRN (14:00)
[2022-02-28] MEDS ORDERED: ENOXAPARIN 40 MG/0.4 ML (LOVENOX) SYR SC SCH (14:00)
[2022-02-28] MEDS ORDERED: morphine INJ 4 MG/ML 1 ML (VIAL/SYRINGE) IV PRN (14:00)
[2022-02-28] MEDS ORDERED: ONDANSETRON 4 MG (ZOFRAN) ORAL DISSOLVE TAB PO PRN (14:00)
[2022-02-28] MEDS ORDERED: MILK OF MAGNESIA 400 MG/5 ML 30 ML UDC PO PRN (14:00)
[2022-02-28 14:15] VITALS: BP 123/77
[2022-02-28] MEDS: RT-ALBUTEROL/IPRATROPIUM 3 ML (DUONEB) VIAL INH SCH ×3 (15:07→21:46)
[2022-02-28 15:39] VITALS: BP 109/66
[2022-02-28] MEDS ORDERED: LOSA50TA63 PO (15:42)
--- NOTE | 2022-02-28 16:02 | History & Physical ---
History of Present Illness HPI/Chief Complaint Chief complaint: Palpitations with dyspnea History present illness: This is a 61-year-old white female clinic patient of mine who has a past medical history of COPD oxygen dependent and hypertension with ongoing chest pain with normal cardiac catheterization [address] Lockwood who presented to the ER after over 1 week of experiencing palpitations with dyspnea. To note she was admitted recently for bradycardia so metoprolol XL 50 mg was stopped and she has had palpitations ever since. The decision was made to place in observation initiate IV steroids for exacerbation of COPD with hypoxia and closely monitor on telemetry due to palpitations and may need a 30- day Holter monitor or loop recorder. Patient continues to smoke. Smoking cessation counseled. Source: patient, old records Exam Limitations: no limitations Date Seen 02/28/22 Time Seen by a Provider: 15:15 Attending Physician Siria Gordon DO PCP Siria Gordon DO Referring Physician Date of Admission Feb 28, 2022 at 13:23 Home Medications & Allergies Home Medications Reviewed patient Home Medication Reconciliation performed by pharmacy medication reconciliations sewing pattern layout technician and/or nursing. Patients Allergies have been reviewed. Allergies Allergies Coded Allergies aspirin (Unverified Allergy, Severe, EDEMA, 04/07/12) Past Akzasvv-Ordflo-Pyxagc Hx Past Med/Social Hx: Reviewed Nursing Past Med/Soc Hx, Reviewed and Corrections made Patient Social History Marrital Status: single Employed/Student: employed Alcohol Use: Denies Use Smoking Status: Current Everyday Smoker Type Used: Cigarettes 2nd Hand Smoke Exposure: Yes Recent Foreign Travel: No Contact w/other who traveled: No Recent Hopitalizations: Yes Recent Infectious Disease Expo: No Immunizations Up To Date Tetanus Booster (TDap): Unknown Pediatric: Yes Date of Pneumonia Vaccine: Feb 03, 2013 Seasonal Allergies Seasonal Allergies: No Past Medical History Surgeries: Orthopedic Respiratory: Chronic Bronchitis, COPD, Pneumonia Cardiac: Coronary Artery Disease, High Cholesterol, Hypertension Neurological: TIA Reproductive: Yes (MISCARRAIGE, HYSTERECTOMY.) Sexually Transmitted Disease: No HIV/AIDS: No Gastrointestinal: Abdominal Hernia Musculoskeletal: Chronic Back Pain Endocrine: Hypothyroidsim Loss of Vision: Bilateral Hearing Impairment: Hard of Hearing Psychosocial: Anxiety History of Blood Disorders: No Adverse Reaction to Blood Hunt: No Family History Cardiovascular disease 19 FATHER 19 MOTHER G8 SISTER Completed stroke 19 MOTHER G8 SISTER Diabetes mellitus G8 SISTER G8 SISTER Drug abuse G8 SISTER Hypertension 19 FATHER 19 MOTHER Myocardial infarction 19 FATHER 19 MOTHER Respiratory disorder G8 SISTER No Family History of: Alzheimer's disease Review of Systems Constitutional: see HPI, malaise, weakness EENTM: no symptoms reported Respiratory: dyspnea on exertion, short of breath, wheezing Cardiovascular: chest pain, palpitations Gastrointestinal: no symptoms reported Genitourinary: no symptoms reported Musculoskeletal: no symptoms reported Psychiatric/Neurological: No Symptoms Reported All Other Systems Reviewed Negative Unless Noted: Yes Physical Exam Physical Exam Vital Signs Vital Signs - First Documented 02/28/22 03/01/22 10:45 03:02 Temp 35.8 Pulse 91 Resp 20 B/P (MAP) 171/93 (119) Pulse Ox 98 O2 Delivery Room Air O2 Flow Rate 3.50 Capillary Refill : Less Than 3 Seconds Height, Weight, BMI Height: 5'3.00" Weight: 178lbs. 0.0oz. [id number]; 34.72 BMI Method:Estimated General Appearance: No Apparent Distress, Anxious, Chronically ill HEENT: PERRL/EOMI, Normal ENT Inspection, Pharynx Normal, Moist Mucous Membranes Neck: Normal Inspection, Non Tender, Supple Respiratory: No Accessory Muscle Use, No Respiratory Distress, Expiration, Wheezing Cardiovascular: Regular Rate, Rhythm, No Gallop, No Murmur, Normal Peripheral Pulses Gastrointestinal: Normal Bowel Sounds, Non Tender, Soft Extremity: Normal Capillary Refill, Normal Inspection, Normal Range of Motion Neurologic/Psychiatric: Alert, Oriented x3, No Motor/Sensory Deficits, Normal Mood/Affect, cycle director II-XII Norm as Tested Skin: Normal Color, Warm/Dry Results Results/Procedures Labs Laboratory Tests 02/28/22 11:03 03/01/22 05:26 Patient resulted labs reviewed. Assessment/Plan Admission Diagnosis Assessment: Chest pain without evidence of ACS Palpitations since discontinuation of metoprolol Dyspnea with wheezing Exacerbation COPD Current smoker Hypertension Hyperlipidemia Chronic back pain Hypothyroidism GERD Plan: Smoking cessation Telemetry Restart metoprolol XL 25 mg IV steroids Nebulizer treatments Home meds Admission Status: Observation Diagnosis/Problems Diagnosis/Problems (1) Chest pain Status: Acute (2) COPD exacerbation Status: Acute (3) Palpitations (4) Hypertension (5) GERD (gastroesophageal reflux disease) (6) Hypothyroidism (7) Hyperlipidemia (8) CAD (coronary artery disease) SIRIA GORDON DO Feb 28, 2022 16:02
[2022-02-28] MEDS ORDERED: RT-ALBUTEROL/IPRATROPIUM 3 ML (DUONEB) VIAL IH PRN (16:15)
[2022-02-28] MEDS ORDERED: RT-ALBUTEROL SULF 2.5 MG/3 ML PRE-MIX VIAL INH PRN (16:15)
[2022-02-28] MEDS: inSUlin ASPART (NovoLOG) 1 UNIT/0.01 ML (CHARGE PER UNIT) SC SCH ×2 (16:55→20:26)
[2022-02-28] MEDS: methylPREDNISolone 40 MG/ML (Solu-MEDROL) VIAL IV SCH ×2 (16:55→23:29)
[2022-02-28 19:20] LABS: BILIRUBIN,URINE NEGATIVE (NEGATIVE); CLARITY,URINE CLEAR; COLOR,URINE YELLOW; GLUCOSE, URINE (UA) NEGATIVE (NEGATIVE); KETONES,URINE NEGATIVE (NEGATIVE); LEUKOCYTE ESTERASE ,URINE NEGATIVE (NEGATIVE); NITRITE,URINE NEGATIVE (NEGATIVE); PH,URINE 6.5 (5-9); PROTEIN,URINE NEGATIVE (NEGATIVE)
[2022-02-28 19:29] LABS: BACTERIA,URINE NEGATIVE /HPF
[2022-02-28 19:30] VITALS: BP 115/82
[2022-02-28] MEDS: PANTOPRAZOLE 40 MG (PROTONIX) TAB PO SCH (20:15)
[2022-02-28] MEDS: DOCUSATE SODIUM 100 MG (COLACE) CAP PO SCH (20:15)
[2022-02-28] MEDS: SENNOSIDES 8.6 MG (SENOKOT) TAB PO SCH (20:16)
[2022-02-28] MEDS ORDERED: NON-FORMULARY MEDICATION 1 EA EA (Fluticasone Propionate (Flonase Allergy Relief) 2 SPRAY) NSEACH SCH (21:00)
[2022-02-28] MEDS ORDERED: MONTELUKAST 10 MG (SINGULAIR) TAB PO SCH (21:00)
[2022-02-28] MEDS ORDERED: FLUTICASONE NASAL SPRAY (FLONASE) 16 GM BTL NS SCH (21:00)
[2022-02-28] MEDS: ACETAMINOPHEN 500 MG TAB (TYLENOL) PO PRN (22:16)
[2022-02-28 23:27] VITALS: BP 101/65
[2022-03-01] MEDS: RT-ALBUTEROL/IPRATROPIUM 3 ML (DUONEB) VIAL INH SCH ×4 (03:02→14:36)
[2022-03-01 03:32] VITALS: BP 137/82
[2022-03-01] MEDS: methylPREDNISolone 40 MG/ML (Solu-MEDROL) VIAL IV SCH ×2 (05:31→11:59)
[2022-03-01 05:44] LABS: BASOPHILS % (AUTO) 0 % (0-10); EOSINOPHILS % (AUTO) 0 % (0-10); HEMATOCRIT 40 % (35-52); HEMOGLOBIN 13.3 g/dL (11.5-16.0); LYMPHOCYTES # (AUTO) 0.6 10^3/uL (1.0-4.0); LYMPHOCYTES % (AUTO) 8 % (12-44); MEAN CORPUSCULAR HEMOGLOBIN 31 pg (25-34); MEAN CORPUSCULAR HGB CONC 33 g/dL (32-36); MEAN CORPUSCULAR VOLUME 92 fL (80-99); MONOCYTES # (AUTO) 0.1 10^3/uL (0.0-1.0); MONOCYTES % (AUTO) 1 % (0-12); NEUTROPHILS # (AUTO) 6.4 10^3/uL (1.8-7.8); NEUTROPHILS % (AUTO) 91 % (42-75); PLATELET COUNT 206 10^3/uL (130-400); WHITE BLOOD COUNT 7.1 10^3/uL (4.3-11.0)
[2022-03-01 06:01] LABS: ALBUMIN 3.7 GM/DL (3.2-4.5); POTASSIUM 3.4 MMOL/L (3.6-5.0)
[2022-03-01 06:03] LABS: TOTAL PROTEIN 6.2 GM/DL (6.4-8.2)
[2022-03-01 06:05] LABS: BILIRUBIN,TOTAL 0.2 MG/DL (0.1-1.0)
[2022-03-01 06:06] LABS: LYMPHOCYTES % (MANUAL) 4 %; MONOCYTES % (MANUAL) 1 %; NEUTROPHILS % (MANUAL) 95 %; RBC MORPH NORMAL
[2022-03-01 06:07] LABS: CREATININE SERUM 0.82 MG/DL (0.60-1.30)
[2022-03-01] MEDS: inSUlin ASPART (NovoLOG) 1 UNIT/0.01 ML (CHARGE PER UNIT) SC SCH ×2 (06:34→11:59)
[2022-03-01 07:41] VITALS: BP 150/83
--- NOTE | 2022-03-01 07:55 | Cardiology Progress Note ---
Subjective Date Seen by Provider: Mar 01, 2022 Time Seen by Provider: 07:53 Subjective/Events-last exam Patient was seen at bedside, laying down comfortably, feeling better. Breathing better. Review of Systems General: No Chills, No Night Sweats, No Fatigue, No Malaise, No Appetite, No Ot her HEENT: No Head Aches, No Visual Changes, No Eye Pain, No Ear Pain, No Dysp hasia, No Sinus Congestion, No Post Nasal Drip, No Sore Throat, No Other Pulmonary: No Dyspnea, No Cough, No Pleuritic Chest Pain, No Other Cardiovascular: No: Chest Pain, Palpitations, Orthopnea, Paroxysmal Noc. Dyspnea, Edema, Lt Headedness, Other Focused Exam Lactate Level 02/28/22 11:27: Lactic Acid Level 0.94 Objective-Cardiology Exam Last Set of Vital Signs Vital Signs 03/01/22 07:41 Temp 35.4 Pulse 63 Resp 18 B/P (MAP) 150/83 (105) Pulse Ox 94 O2 Delivery Nasal Cannula O2 Flow Rate 3.50 I&O Intake and Output 03/01/22 00:00 Intake Total 660 ml Output Total 1500 ml Balance -840 ml Intake Oral 660 ml Output Urine Total 1500 ml Daily Weight Change No General: Alert, Oriented X3, Cooperative HEENT: Atraumatic, PERRLA Neck: Supple, No JVD, No Thyromegaly Lungs: Clear to Auscultation, Normal Air Movement Heart: Regular Rate, Normal S1, Normal S2, No Murmurs Abdomen: Normal Bowel Sounds, Soft, No Tenderness, No Hepatosplenomegaly, No Masses Extremities: No Clubbing, No Cyanosis, No Edema, Normal Pulses, No Tenderness/Swelling Skin: No Rashes, No Breakdown, No Significant Lesion Neuro: Normal Gait, Normal Speech, Strength at 5/5 X4 Ext, Normal Tone, Sensation Intact Psych/Mental Status: Mental Status NL, Mood NL Results Lab Laboratory Tests 02/28/22 11:03 03/01/22 05:26 A/P-Cardiology Admission Diagnosis Chest pain Palpitation Shortness of breath Acute exacerbation of COPD Assessment/Plan Chest pain, nonspecific etiology, atypical in presentation, had a cardiac catheterization done in January 2021 showing nonobstructive disease. EKG did not show any acute abnormality, cardiac enzymes are negative. Reporting improvement, no further episodes of chest pain Shortness of breath, acute exacerbation of COPD, having significant wheezing. Started on steroids and bronchodilators. Reporting improvement, feeling better. Recurrent palpitation, having multiple episodes of palpitations. Has history of sinus node dysfunction with severe bradycardia. Beta-blockers were discontinued in the past due to bradycardia. She was having episodes of dizziness and lightheadedness. I restarted Toprol XL 25 mg daily yesterday and she has been tolerating it well. Coronary artery disease, Cardiac catheterization done in 2013 then repeat cardiac catheterization in July 2020 showing no significant obstructive disease Repeat cardiac catheterization was done in January 2021 showing mild disease nonobstructive disease History of congestive heart failure, improved, last echo done in December 2021 showing normal LV size, EF 50 to 55%, grade 1 diastolic dysfunction, normal pulmonary artery pressure of 20 to 25 mmHg. Hypertension, restart home medication monitor blood pressure Hyperlipidemia, monitor lipids History of lower extremities pain and cramps, SHARAN was done in April 2019 it was normal Mild bilateral carotid stenosis, ultrasound was done in January 2022. Continue to monitor Obesity BMI 34. Discussed weight loss Tobaccoism, still an active smoker and educated on smoking cessation Okay for discharge and follow-up as an outpatient PAYTON HAMPTON MD Mar 01, 2022 07:54
[2022-03-01] MEDS ORDERED: RT--FLUTICASONE/SALMETEROL 232-14 (AIRDUO RespiCLICK) IH SCH (08:00)
[2022-03-01] MEDS: DOCUSATE SODIUM 100 MG (COLACE) CAP PO SCH (08:25)
[2022-03-01] MEDS: ACETAMINOPHEN 500 MG TAB (TYLENOL) PO PRN (08:25)
[2022-03-01] MEDS: PANTOPRAZOLE 40 MG (PROTONIX) TAB PO SCH (08:26)
[2022-03-01] MEDS: SENNOSIDES 8.6 MG (SENOKOT) TAB PO SCH (08:26)
[2022-03-01] MEDS ORDERED: LOSARTAN 50 MG (COZAAR) TAB PO SCH (09:00)
[2022-03-01] MEDS ORDERED: FLUTICASONE/VILANTEROL 200 MCG 14'S (BREO) IH SCH (09:00)
[2022-03-01] MEDS ORDERED: NON-FORMULARY MEDICATION 1 EA EA (Cetirizine HCl (Zyrtec) 10 MG) PO SCH (09:00)
[2022-03-01] MEDS ORDERED: buPROPion SR 150 MG (WELLBUTRIN SR) TAB PO SCH (09:00)
[2022-03-01] MEDS ORDERED: LORATADINE (CLARITIN) 10 MG TAB PO SCH (09:00)
[2022-03-01 11:10] VITALS: BP 120/64
[2022-03-01] MEDS ORDERED: IPRA3AMP31 IH (11:16)
[2022-03-01] MEDS ORDERED: MTP25TSR PO (11:16)
[2022-03-01] MEDS ORDERED: PRED10TA22 PO (11:16)
[2022-03-01] MEDS ORDERED: BUPR150T14 PO (11:16)
--- NOTE | 2022-03-01 11:18 | Discharge Summary ---
Diagnosis/Chief Complaint Date of Admission Feb 28, 2022 at 13:23 Date of Discharge Discharge Date: Mar 01, 2022 Discharge Diagnosis Assessment: Chest pain without evidence of ACS Palpitations since discontinuation of metoprolol Dyspnea with wheezing Exacerbation COPD Current smoker Hypertension Hyperlipidemia Chronic back pain Hypothyroidism GERD Plan: Smoking cessation Telemetry Restart metoprolol XL 25 mg IV steroids Nebulizer treatments Home meds Discharge Summary Discharge Physical Examination Allergies: Coded Allergies: aspirin (Unverified Allergy, Severe, EDEMA, 04/07/12) Vitals & I&Os Vital Signs Date Time Temp Pulse Resp B/P (MAP) Pulse Ox O2 Delivery O2 Flow Rate FiO2 03/01/22 15:40 36.3 66 18 120/64 91 Room Air 0.00 General Appearance: Alert, Oriented X3, Cooperative Respiratory: Clear to Auscultation Cardiovascular: Regular Rate Neuro: Normal Gait, Normal Speech, Strength at 5/5 X4 Ext Psych/Mental Status: Mental Status NL Hospital Course Was the Problem List Reviewed?: Yes Hospital Course: This is Miss Appiah, a 61 yo F, who presented to the ER with palpitations and dyspnea, which had been worsening for the past week. Notably, the palpitations started after discontinuing metoprolol. Her oxygen dependence has also increased over this time period. She was admitted inpatient for management of an acute COPD exacerbation. She was started on IV steroids, breathing treatments and other supportive care measures. Cardiology was consulted, since she is normally seen by Dr. Lockwood. It was recommended that she restart the metoprolol. The morning of 03/01/22, she was feeling much better, her dyspnea had improved and the palpitations had resolved. She has been struggling with chronic sinusitis and has an upcoming appointment with Dr. Pete in April. He asked that a CT of the sinuses be completed before coming in. She is establishing with a manufacturer representative out of [place] in late March. Smoking cessation was emphasized and patient was started on wellbutrin. She has previously had reactions with nicotine gum and patches. At this time, Bijal is safe and stable to be discharged home today. Her new prescriptions have been sent to her preferred pharmacy. OLU VELAZQUEZ MED STUDENT Mar 01, 2022 12:48 Labs (last 24 hrs) Laboratory Tests 02/28/22 11:03: White Blood Count 5.4, Red Blood Count 4.66, Hemoglobin 14.5, Hematocrit 43, Mean Corpuscular Volume 92, Mean Corpuscular Hemoglobin 31, Mean Corpuscular Hemoglobin Concent 34, Red Cell Distribution Width 12.8, Platelet Count 257, Mean Platelet Volume 11.3, Immature Granulocyte % (Auto) 0, Neutrophils (%) (Auto) 59, Lymphocytes (%) (Auto) 28, Monocytes (%) (Auto) 9, Eosinophils (%) (Auto) 3, Basophils (%) (Auto) 1, Neutrophils # (Auto) 3.2, Lymphocytes # (Auto) 1.5, Monocytes # (Auto) 0.5, Eosinophils # (Auto) 0.1, Basophils # (Auto) 0.0, Immature Granulocyte # (Auto) 0.0, Prothrombin Time 12.4, INR Comment 0.9, Activated Partial Thromboplast Time 30, D-Dimer 0.52H, Sodium Level 135, Potassium Level 3.5L, Chloride Level 95L, Carbon Dioxide Level 27, Anion Gap 13, Blood Urea Nitrogen 13, Creatinine 0.72, Estimat Glomerular Filtration Rate 96, BUN/Creatinine Ratio 18, Glucose Level 94, Calcium Level 9.3, Corrected Calcium 9.1, Magnesium Level 2.1, Total Bilirubin 0.4, Aspartate Amino Transf (AST/SGOT) 26, Alanine Aminotransferase (ALT/SGPT) 24, Alkaline Phosphatase 79, Myoglobin 46.0, Troponin I < 0.028, B-Type Natriuretic Peptide < 10.0, Total Protein 7.3, Albumin 4.2, Thyroid Stimulating Hormone (TSH) 0.77 02/28/22 11:09: Blood Gas Puncture Site L WRIST, Blood Gas Patient Temperature 35.8, Arterial Blood pH 7.47H, Arterial Blood Partial Pressure CO2 39, Arterial Blood Partial Pressure O2 59L, Arterial Blood HCO3 28H, Arterial Blood Total CO2 29.6, Arterial Blood Oxygen Saturation 94, Arterial Blood Base Excess 4.5H, Sebastien Test YES-POS, Blood Gas Ventilator Setting NO, Blood Gas Inspired Oxygen RA 02/28/22 11:16: Influenza Type A (RT-PCR) Not Detected, Influenza Type B (RT-PCR) Not Detected, SARS-CoV-2 RNA (RT-PCR) Not Detected 02/28/22 11:27: Lactic Acid Level 0.94 02/28/22 15:42: Glucometer 167H 02/28/22 19:04: Urine Color YELLOW, Urine Clarity CLEAR, Urine pH 6.5, Urine Specific [place] 1.010L, Urine Protein NEGATIVE, Urine Glucose (UA) NEGATIVE, Urine Ketones NEGATIVE, Urine Nitrite NEGATIVE, Urine Bilirubin NEGATIVE, Urine Urobilinogen 0.2, Urine Leukocyte Esterase NEGATIVE, Urine RBC (Auto) NEGATIVE, Urine RBC NONE, Urine WBC NONE, Urine Squamous Epithelial Cells NONE, Urine Renal Epithelial Cells NONE, Urine Crystals NONE, Urine Bacteria NEGATIVE, Urine Casts NONE, Urine Mucus NEGATIVE, Urine Culture Indicated NO 02/28/22 20:20: Glucometer 176H 03/01/22 05:26: White Blood Count 7.1, Red Blood Count 4.34, Hemoglobin 13.3, Hematocrit 40, Mean Corpuscular Volume 92, Mean Corpuscular Hemoglobin 31, Mean Corpuscular Hemoglobin Concent 33, Red Cell Distribution Width 12.6, Platelet Count 206, Mean Platelet Volume 11.0, Immature Granulocyte % (Auto) 1, Neutrophils (%) (Au to) 91H, Lymphocytes (%) (Auto) 8L, Monocytes (%) (Auto) 1, Eosinophils (%) (Auto) 0, Basophils (%) (Auto) 0, Neutrophils # (Auto) 6.4, Lymphocytes # (Auto) 0.6L, Monocytes # (Auto) 0.1, Eosinophils # (Auto) 0.0, Basophils # (Auto) 0.0, Immature Granulocyte # (Auto) 0.0, Neutrophils % (Manual) 95, Lymphocytes % (Manual) 4, Monocytes % (Manual) 1, Blood Morphology Comment NORMAL, Sodium Level 132L, Potassium Level 3.4L, Chloride Level 95L, Carbon Dioxide Level 23, Anion Gap 14, Blood Urea Nitrogen 18, Creatinine 0.82, Estimat Glomerular Filtration Rate 82, BUN/Creatinine Ratio 22, Glucose Level 260H, Calcium Level 9.0, Corrected Calcium 9.2, Total Bilirubin 0.2, Aspartate Amino Transf (AST/SGOT) 26, Alanine Aminotransferase (ALT/SGPT) 27, Alkaline Phosphatase 94, Total Protein 6.2L, Albumin 3.7 03/01/22 11:14: Glucometer 186H Pending Labs Laboratory Tests 02/28/22 11:03: White Blood Count 5.4, Red Blood Count 4.66, Hemoglobin 14.5, Hematocrit 43, Mean Corpuscular Volume 92, Mean Corpuscular Hemoglobin 31, Mean Corpuscular Hemoglobin Concent 34, Red Cell Distribution Width 12.8, Platelet Count 257, Mean Platelet Volume 11.3, Immature Granulocyte % (Auto) 0, Neutrophils (%) (Auto) 59, Lymphocytes (%) (Auto) 28, Monocytes (%) (Auto) 9, Eosinophils (%) (Auto) 3, Basophils (%) (Auto) 1, Neutrophils # (Auto) 3.2, Lymphocytes # (Auto) 1.5, Monocytes # (Auto) 0.5, Eosinophils # (Auto) 0.1, Basophils # (Auto) 0.0, Immature Granulocyte # (Auto) 0.0, Prothrombin Time 12.4, INR Comment 0.9, Activated Partial Thromboplast Time 30, D-Dimer 0.52, Sodium Level 135, Potassium Level 3.5, Chloride Level 95, Carbon Dioxide Level 27, Anion Gap 13, Blood Urea Nitrogen 13, Creatinine 0.72, Estimat Glomerular Filtration Rate 96, BUN/Creatinine Ratio 18, Glucose Level 94, Calcium Level 9.3, Corrected Calcium 9.1, Magnesium Level 2.1, Total Bilirubin 0.4, Aspartate Amino Transf (AST/SGOT) 26, Alanine Aminotransferase (ALT/SGPT) 24, Alkaline Phosphatase 79, Myoglobin 46.0, Troponin I < 0.028, B-Type Natriuretic Peptide < 10.0, Total Protein 7.3, Albumin 4.2, Thyroid Stimulating Hormone (TSH) 0.77 02/28/22 11:09: Blood Gas Puncture Site L WRIST, Blood Gas Patient Temperature 35.8, Arterial Blood pH 7.47, Arterial Blood Partial Pressure CO2 39, Arterial Blood Partial Pressure O2 59, Arterial Blood HCO3 28, Arterial Blood Total CO2 29.6, Arterial Blood Oxygen Saturation 94, Arterial Blood Base Excess 4.5, Sebastien Test YES-POS, Blood Gas Ventilator Setting NO, Blood Gas Inspired Oxygen RA 02/28/22 11:16: Influenza Type A (RT-PCR) Not Detected, Influenza Type B (RT-PCR) Not Detected, SARS-CoV-2 RNA (RT-PCR) Not Detected 02/28/22 11:27: Lactic Acid Level 0.94 02/28/22 15:42: Glucometer 167 02/28/22 19:04: Urine Color YELLOW, Urine Clarity CLEAR, Urine pH 6.5, Urine Specific [place] 1.010, Urine Protein NEGATIVE, Urine Glucose (UA) NEGATIVE, Urine Ketones NEGATI VE, Urine Nitrite NEGATIVE, Urine Bilirubin NEGATIVE, Urine Urobilinogen 0.2, Urine Leukocyte Esterase NEGATIVE, Urine RBC (Auto) NEGATIVE, Urine RBC NONE, Urine WBC NONE, Urine Squamous Epithelial Cells NONE, Urine Renal Epithelial Cells NONE, Urine Crystals NONE, Urine Bacteria NEGATIVE, Urine Casts NONE, Urine Mucus NEGATIVE, Urine Culture Indicated NO 02/28/22 20:20: Glucometer 176 03/01/22 05:26: White Blood Count 7.1, Red Blood Count 4.34, Hemoglobin 13.3, Hematocrit 40, Mean Corpuscular Volume 92, Mean Corpuscular Hemoglobin 31, Mean Corpuscular Hemoglobin Concent 33, Red Cell Distribution Width 12.6, Platelet Count 206, Mean Platelet Volume 11.0, Immature Granulocyte % (Auto) 1, Neutrophils (%) (Auto) 91, Lymphocytes (%) (Auto) 8, Monocytes (%) (Auto) 1, Eosinophils (%) (Auto) 0, Basophils (%) (Auto) 0, Neutrophils # (Auto) 6.4, Lymphocytes # (Auto) 0.6, Monocytes # (Auto) 0.1, Eosinophils # (Auto) 0.0, Basophils # (Auto) 0.0, Immature Granulocyte # (Auto) 0.0, Neutrophils % (Manual) 95, Lymphocytes % (Manual) 4, Monocytes % (Manual) 1, Blood Morphology Comment NORMAL, Sodium Level 132, Potassium Level 3.4, Chloride Level 95, Carbon Dioxide Level 23, Anion Gap 14, Blood Urea Nitrogen 18, Creatinine 0.82, Estimat Glomerular Filtration Rate 82, BUN/Creatinine Ratio 22, Glucose Level 260, Calcium Level 9.0, Corrected Calcium 9.2, Total Bilirubin 0.2, Aspartate Amino Transf (AST/SGOT) 26, Alanine Aminotransferase (ALT/SGPT) 27, Alkaline Phosphatase 94, Total Protein 6.2, Albumin 3.7 03/01/22 11:14: Glucometer 186 Discharge Home Medications: Active Scripts Active Prednisone 10 Mg Tab.ds.pk 10 Mg PO DAILY Take 6 tabs(60mg)daily,decrease by 1 tab(10MG)daily. Bupropion HCl Sr (Bupropion HCl) 150 Mg Tablet.er 150 Mg PO BID Metoprolol Succinate 25 Mg Tab.er.24h 25 Mg PO DAILY Iprat-Albut 0.5-3(2.5) mg/3 ml (Ipratropium/Albuterol Sulfate) 3 Ml Ampul.neb 3 Ml IH QID PRN 14 Days Reported Losartan Potassium 50 Mg Tablet 50 Mg PO DAILY Tylenol Extra Strength (Acetaminophen) 500 Mg Tablet 1,000 Mg PO Q6H PRN Terbinafine HCl 250 Mg Tablet 250 Mg PO DAILY Breo Ellipta 200-25 Mcg INH (Fluticasone/Vilanterol) 1 Each Blst.w.dev 1 Puff INH DAILY Zyrtec (Cetirizine HCl) 10 Mg Capsule 10 Mg PO DAILY Ventolin Hfa (Albuterol Sulfate) 1 Puff Puff 2 Puff INH Q4H PRN Montelukast Sodium 10 Mg Tablet 10 Mg PO HS LAST FILLED 10-25-2021 #30/30 DAY SUPPLY Hydrochlorothiazide 25 Mg Tablet 25 Mg PO DAILY Flonase Allergy Relief (Fluticasone Propionate) 9.9 Ml Roscoe.susp 2 Roscoe NSEACH HS Pantoprazole Sodium 40 Mg Tablet.dr 40 Mg PO BID Instructions to patient/family Please see electronic discharge instructions given to patient. Diagnosis/Problems Diagnosis/Problems (1) Chest pain Status: Acute (2) COPD exacerbation Status: Acute (3) Palpitations (4) Hypertension (5) GERD (gastroesophageal reflux disease) (6) Hypothyroidism (7) Hyperlipidemia (8) CAD (coronary artery disease) SUZY TELLEZ DO Mar 01, 2022 11:17
--- NOTE | 2022-03-01 12:48 | Progress Note ---
OLU VELAZQUEZ MED STUDENT 03/01/22 1248: Progress Note Hospital Course: This is Miss Appiah, a 61 yo F, who presented to the ER with palpitations and dyspnea, which had been worsening for the past week. Notably, the palpitations started after discontinuing metoprolol. Her oxygen dependence has also increased over this time period. She was admitted inpatient for management of an acute COPD exacerbation. She was started on IV steroids, breathing treatments and other supportive care measures. Cardiology was consulted, since she is normally seen by Dr. Lockwood. It was recommended that she restart the metoprolol. The morning of 03/01/22, she was feeling much better, her dyspnea had improved and the palpitations had resolved. She has been struggling with chronic sinusitis and has an upcoming appointment with Dr. Pete in April. He asked that a CT of the sinuses be completed before coming in. She is establishing with a industrial hygenist out of [place] in late March. Smoking cessation was emphasized and patient was started on wellbutrin. She has previously had reactions with nicotine gum and patches. At this time, Bijal is safe and stable to be discharged home today. Her new prescriptions have been sent to her preferred pharmacy. SIRIA TELLEZ DO 03/02/22 0635: Supervisory-Addendum Brief Verification & Attestation Participated in pt care: history, MDM, physical Personally performed: exam, history, MDM, supervision of care Care discussed with: Medical Student Procedures: n/a Results interpretation: Verified all documentation Verification and Attestation of Medical Student E/M Service A medical student performed and documented this service in my presence. I reviewed and verified all information documented by the medical student and made modifications to such information, when appropriate. I personally performed the physical exam and medical decision making. Siria Tellez, Mar 02, 2022,06:35 OLU VELAZQUEZ MED STUDENT Mar 01, 2022 12:48 SIRIA TELLEZ DO Mar 02, 2022 06:35
--- NOTE | 2022-03-01 14:51 | Diagnostic Imaging Report ---
PROCEDURE: CT sinuses without contrast TECHNIQUE: Multiple contiguous axial images were obtained through the sinuses without the use of intravenous contrast. Coronal and sagittal reformations were then performed. Auto Exposure Controls were utilized during the CT exam to meet ALARA standards for radiation dose reduction. INDICATION: Sinusitis. COMPARISON: No priors. FINDINGS: There is a rightward oriented nasal septal spur inferiorly. The turbinates are unremarkable. The infundibula are normal. The maxillary sinus ostia are patent. The maxillary sinuses are clear aside from slight lobular membrane thickening in the floor of the left maxillary measuring 8 mm in thickness. The ethmoid air cells are clear. The frontal sinuses are clear. The sphenoid sinus is clear. There is no mastoid effusion. Middle ear cavities are grossly unremarkable. The orbital contents are unremarkable. IMPRESSION: Nasal septal spurring towards the right. Mild membrane thickening in the floor of the left maxillary sinus. However, no air-fluid level, bony destruction, or ostial obstruction. Dictated by: Dictated on workstation # [id number]
[2022-03-01 15:40] VITALS: BP 120/64
== END 2022-03-01 15:40 | disposition home or self-care (01) | DRG 192 ==
LOC: EDUNIT# 10:43 → ER 10:45 → 4TH 13:23
PROVIDERS: ADMIT Internal Medicine; ATTEND Internal Medicine
DX: J44.1 Chronic obstructive pulmonary disease with (acute) exacerbation (principal); R07.89 Other chest pain; R00.2 Palpitations; K21.9 Gastro-esophageal reflux disease without esophagitis; E03.9 Hypothyroidism, unspecified; I25.10 Atherosclerotic heart disease of native coronary artery without angina pectoris; Z99.81 Dependence on supplemental oxygen; J32.9 Chronic sinusitis, unspecified; F17.210 Nicotine dependence, cigarettes, uncomplicated; G89.29 Other chronic pain; M54.9 Dorsalgia, unspecified; R09.02 Hypoxemia; E78.00 Pure hypercholesterolemia, unspecified; F41.9 Anxiety disorder, unspecified; Z20.822 Contact with and (suspected) exposure to COVID-19; I50.9 Heart failure, unspecified; I11.0 Hypertensive heart disease with heart failure; R25.2 Cramp and spasm; M79.669 Pain in unspecified lower leg; I65.23 Occlusion and stenosis of bilateral carotid arteries; E66.9 Obesity, unspecified; Z68.34 Body mass index [BMI] 34.0-34.9, adult
CPT/HCPCS: 36415; 70486; 71045; 80053; 81000; 82805; 82947; 83605; 83735; 83874; 83880; 84443; 84484; 85007; 85025; 85027; 85379; 85610; 85730; 87088; 87636; 93005; 93041; 94640; 94760; G0378

== ENCOUNTER 2022-06-28 05:35 | Outpatient (RCR) | payer MEDICARE ==
[~2022-06-28] VITALS: Ht 160 cm; Wt 83.0 kg
[~2022-06-28 05:35] MED LIST changes: +BUPR-105 PO; +MTP25TSR PO
[2022-06-28] MEDS ORDERED: CYCL10TA25 PO (10:38)
== END 2022-06-28 10:39 | disposition home or self-care (01) ==
LOC: PREOP 05:35
PROVIDERS: ATTEND Surgery
DX: Z01.818 Encounter for other preprocedural examination (principal)

== ENCOUNTER 2022-07-09 08:58 | Day surgery (SDC) | payer MEDICARE ==
[~2022-07-09] VITALS: Ht 160 cm; Wt 83.0 kg
[2022-07-09] MEDS ORDERED: LACTATED RINGERS 1,000 ML IV STA (09:06)
[2022-07-09 09:15] VITALS: BP 122/79
[2022-07-09] MEDS ORDERED: HURRICAINE EXT TUBE (BENZOCAINE) XX PRN (09:15)
--- NOTE | 2022-07-09 09:50 | Progress Note-Pre Operative ---
Pre-Operative Progress Note Date of Available H&P: Jun 26, 2022 Date H&P Reviewed: Jul 09, 2022 Time H&P Reviewed: 09:48 History & Physical: H&P Reviewed, Patient Examed, No changes noted Pre-Operative Diagnosis: Chavez's Esophagus MARJ SALEH DO Jul 09, 2022 09:50
[2022-07-09] MEDS ORDERED: MIDAZOLAM 2 MG/2 ML (VERSED) VIAL ONE (10:38)
[2022-07-09] MEDS ORDERED: proPOfol 200 MG/20 ML (DIPRIVAN) VIAL IV ONE (10:38)
[2022-07-09 10:55] VITALS: BP 131/64
--- NOTE | 2022-07-09 10:59 | Progress Note-Post Operative ---
Post-Operative Progess Note Surgeon (s)/Director Of Primary (s) Surgeon MARJ SALEH DO Director Of Primary: none Pre-Operative Diagnosis Chavez's Esophagus Post-Operative Diagnosis Hiatal hernia Gastritis Procedure & Operative Findings Date of Procedure 07/09/22 Procedure Performed/Findings EGD with bx PROCEDURE NOTE: After informed consent was obtained, the patient was brought to the endoscopy suite, placed in bed in left lateral decubitus position. She was administered IV sedation by the HOUSEKEEPER SUPERVISOR who then monitored vitals the entire time, heart rate, blood pressure and pulse ox and the scope was inserted down the mouth through the esophagus into the stomach. On the way down, noted some mild esophagitis, took a picture, pushed into the stomach, pushed past the antrum into the duodenum. Duodenum looked good. Pulled back and did a biopsy of the antrum which looked very red. Then retroflexed the scope and saw a large hiatal hernia; at least 2-3 cm and took a picture of this. Next, pulled the scope into the GE junction, took another picture of the hiatal hernia and then did a biopsy of the GE junction. Pushed the scope back into the stomach, suctioned all the air out of the stomach. At this point pulled the scope up the esophagus and out the mouth. The patient tolerated the procedure, and she recovered in endoscopy suite. Anesthesia Type IV sedation by HOUSEKEEPER SUPERVISOR Estimated Blood Loss Estimated blood loss (mL): scant Specimens/Packing Specimens Removed antral bx GE jxn bx MARJ SALEH DO Jul 09, 2022 10:59
--- NOTE | 2022-07-09 10:59 | Endoscopy Discharge Instruct ---
Endo Procedure/Findings Findings 1.: Hiatal Hernia 2.: Gastritis Discharge Instructions - Activity: You might feel a little sleepy until tomorrow. This is due to the medicine you received to relax you. Until tomorrow, you should: NOT drive a car, operate machinery or power tools. NOT drink any alcoholic beverages. NOT make any important decisions or sign importortant papers. Do not return to work until tomorrow, unless otherwise instructed. Resume previous activities tomorrow. Diet: Start by taking liquids. If you tolerate liquids, advance to solid food. 1.: EGD in 1 year Notify Physician - If you experience excessive bleeding, unusual abdominal pain, fever, or chest pain, contact your doctor immediately. MARJ SALEH DO Jul 09, 2022 10:59
[2022-07-09 11:00] VITALS: BP 130/68
[2022-07-09 11:05] VITALS: BP 129/70
[2022-07-09 11:25] VITALS: BP 146/82
[2022-07-09 11:47] VITALS: BP 146/82
--- NOTE | 2022-07-09 12:24 | Anesthesia-General Post-Op ---
MAC Patient Condition Mental Status/LOC: Same as Preop Cardiovascular: Satisfactory Nausea/Vomiting: Absent Respiratory: Satisfactory Pain: Controlled Complications: Absent Post Op Complications Complications None Follow Up Care/Instructions Patient Instructions None needed. Anesthesiology Discharge Order Discharge Order Patient is doing well, no complaints, stable vital signs, no apparent adverse anesthesia problems. No complications reported per nursing. CAITLIN JIM CRNA Jul 09, 2022 12:24
== END 2022-07-09 11:55 | disposition home or self-care (01) ==
LOC: ENDO 08:58
PROVIDERS: ATTEND Surgery
DX: K31.89 Other diseases of stomach and duodenum (principal); K22.70 Barrett's esophagus without dysplasia; K44.9 Diaphragmatic hernia without obstruction or gangrene; K29.70 Gastritis, unspecified, without bleeding; F17.210 Nicotine dependence, cigarettes, uncomplicated
CPT/HCPCS: 88305

== ENCOUNTER → 2023-03-19 | Outpatient (CLI) | payer MEDICARE | LOC: CARD 08:15 | PROVIDERS: ATTEND Internal Medicine Cardiovascular Disease | DX: I11.9 Hypertensive heart disease without heart failure (principal); I25.10 Atherosclerotic heart disease of native coronary artery without angina pectoris | CPT/HCPCS: 93306 ==

== ENCOUNTER 2023-06-12 06:28 | Outpatient (CLI) | payer MEDICARE ==
[~2023-06-12] VITALS: Ht 160 cm; Wt 93.6 kg
[~2023-06-12 06:28] MED LIST changes: -LOSA100T57 PO; +LOSA100T58 PO
[2023-06-13] MEDS ORDERED: ACET-93 PO (10:25)
[2023-06-13] MEDS ORDERED: BUPR-105 PO (10:25)
== END 2023-06-13 10:27 | disposition home or self-care (01) ==
LOC: PREOP 06:28
PROVIDERS: ATTEND Surgery
DX: Z01.818 Encounter for other preprocedural examination (principal)

== ENCOUNTER 2023-06-24 08:55 | Day surgery (SDC) | payer MEDICARE ==
[~2023-06-24] VITALS: Ht 160 cm; Wt 93.6 kg
[~2023-06-24 08:55] MED LIST changes: +ACET-93 PO
[2023-06-24] MEDS ORDERED: LACTATED RINGERS 1,000 ML IV STA (08:57)
[2023-06-24] MEDS ORDERED: HURRICAINE EXT TUBE (BENZOCAINE) XX PRN (09:00)
--- NOTE | 2023-06-24 09:15 | Progress Note-Pre Operative ---
Pre-Operative Progress Note Date of Available H&P: Jun 11, 2023 Date H&P Reviewed: Jun 24, 2023 Time H&P Reviewed: 09:13 History & Physical: H&P Reviewed, Patient Examed, No changes noted Pre-Operative Diagnosis: Hx of Chavez's, GERD MARJ SALEH DO Jun 24, 2023 09:15
[2023-06-24 09:25] VITALS: BP 132/78
[2023-06-24] MEDS ORDERED: MIDAZOLAM 2 MG/2 ML (VERSED) VIAL ONE (10:06)
[2023-06-24] MEDS ORDERED: proPOfol 200 MG/20 ML (DIPRIVAN) VIAL IV ONE (10:06)
[2023-06-24 10:34] VITALS: BP 108/62
--- NOTE | 2023-06-24 10:36 | Progress Note-Post Operative ---
Post-Operative Progess Note Surgeon (s)/After School Coordinator (s) Surgeon MARJ SALEH DO After School Coordinator: none Pre-Operative Diagnosis Hx of Chavez's, GERD Post-Operative Diagnosis Gastritis Hiatal Hernia Esophagitis Procedure & Operative Findings Date of Procedure 06/24/23 Procedure Performed/Findings EGD with biopsy PROCEDURE NOTE: After informed consent was obtained, the patient was brought to the endoscopy suite, placed in bed in left lateral decubitus position. She was administered IV sedation by the GRANITE SANDBLASTER APPRENTICE who then monitored vitals the entire time, heart rate, blood pressure and pulse ox and the scope was inserted down the mouth through the esophagus into the stomach. On the way down, noted some mild esophagitis, took a picture, pushed into the stomach and towards the antrum. The antrum was moderately to severely inflammed and I took a picture. Pushed past the antrum into the duodenum; duodenum looked good. Pulled back and did a biopsy of the antrum, then retroflexed the scope, saw small Grade II AFS hiatal hernia and took a picture. I then pulled the scope into the GE junction, took another picture of the hiatal hernia and then did a biopsy of the GE junction. Pushed the scope back into the stomach, suctioned all the air out of the stomach. At this point pulled the scope up the esophagus and out the mouth. The patient tolerated the procedure, and she recovered in endoscopy suite. Anesthesia Type IV sedation by GRANITE SANDBLASTER APPRENTICE Estimated Blood Loss Estimated blood loss (mL): scant Specimens/Packing Specimens Removed Gastritis Hiatal Hernia Esophagitis MARJ SALEH DO Jun 24, 2023 10:36
--- NOTE | 2023-06-24 10:37 | Endoscopy Discharge Instruct ---
Endo Procedure/Findings Findings 1.: Gastritis 2.: Hiatal Hernia Discharge Instructions - Activity: You might feel a little sleepy until tomorrow. This is due to the medicine you received to relax you. Until tomorrow, you should: NOT drive a car, operate machinery or power tools. NOT drink any alcoholic beverages. NOT make any important decisions or sign importortant papers. Do not return to work until tomorrow, unless otherwise instructed. Resume previous activities tomorrow. Diet: Start by taking liquids. If you tolerate liquids, advance to solid food. 1.: EGD in 3 years Notify Physician - If you experience excessive bleeding, unusual abdominal pain, fever, or chest pain, contact your doctor immediately. Follow-Up: Other Follow up in my office in one week MARJ SALEH DO Jun 24, 2023 10:37
[2023-06-24 10:40] VITALS: BP 118/60
[2023-06-24 11:25] VITALS: BP 118/60
--- NOTE | 2023-06-24 11:45 | Anesthesia-General Post-Op ---
MAC Patient Condition Mental Status/LOC: Same as Preop Cardiovascular: Satisfactory Nausea/Vomiting: Absent Respiratory: Satisfactory Pain: Controlled Complications: Absent Post Op Complications Complications None Follow Up Care/Instructions Patient Instructions None needed. Anesthesiology Discharge Order Discharge Order Patient is doing well, no complaints, stable vital signs, no apparent adverse anesthesia problems. No complications reported per nursing. DARIEL MEZA CRNA Jun 24, 2023 11:45
== END 2023-06-24 11:27 | disposition home or self-care (01) ==
LOC: ENDO 08:55
PROVIDERS: ATTEND Surgery
DX: K21.00 Gastro-esophageal reflux disease with esophagitis, without bleeding (principal); K22.70 Barrett's esophagus without dysplasia; K44.9 Diaphragmatic hernia without obstruction or gangrene; K29.70 Gastritis, unspecified, without bleeding; K31.89 Other diseases of stomach and duodenum; E66.9 Obesity, unspecified; Z79.899 Other long term (current) drug therapy; Z68.36 Body mass index [BMI] 36.0-36.9, adult